=== PATIENT | male | born 1945 | race Caucasian/White ===

== ENCOUNTER → 2020-08-27 10:51 | Outpatient (BNVA) | payer MEDICARE, OTHER, SELFPAY | PROVIDERS: PCP Internal Medicine; Visit Provider Internal Medicine | DX: J44.9 Chronic obstructive pulmonary disease, unspecified (principal); J84.10 Pulmonary fibrosis, unspecified; R91.1 Solitary pulmonary nodule; Z79.899 Other long term (current) drug therapy | CPT/HCPCS: 99213 ==

== ENCOUNTER 2020-10-02 05:14 | Inpatient (IN) | payer MEDICARE, OTHER, SELFPAY ==
[2020-10-02 05:22] VITALS: BP 115/67; BP 138/80; PULSE 104; PULSE 62; RESP 15; TEMP 36.6; O2SAT 98; O2SAT 99; BMI 25.9
--- NOTE | 2020-10-02 05:28 | XR_ITS ---
EXAMINATION: ABDOMEN 1 VIEW CLINICAL INFORMATION: Constipation. COMPARISON: None. TECHNIQUE: A supine view of the abdomen is provided. FINDINGS: There are no dilated loops of small bowel. There are no air-fluid levels. There is no appendicolith. The visualized lung bases are clear. The osseous structures are unremarkable. XR/XR KUB IMPRESSION: Unremarkable bowel gas pattern.
[2020-10-02 05:58] LABS: Basophils Percent Auto 0.2 % (0-2); Eosinophils Percent Auto 0.1 % (0-4); Hematocrit 48.3 % (42-52); Hemoglobin 16.6 g/dl (14.0-18.0); Imm Gran Abs Auto 0.04 X10*3/uL (0.00-0.03); Imm Gran Pct Auto 0.3 % (0.0-0.4); Lymphocytes Absolute Auto 0.7 X10*3/uL (1.2-4.9); Lymphocytes Percent Auto 5.2 % (20-40); Mean Corpuscular HGB Conc 34.4 g/dl (31.0-36.0); Mean Corpuscular Hemoglobin 30.2 pg (27.0-33.0); Mean Corpuscular Volume 87.8 fL (80-98); Mean Platelet Volume 9.1 fL (9.4-12.4); Monocytes Absolute Auto 0.5 X10*3/uL (0.1-1.2); Monocytes Percent Auto 4.2 % (2-11); Neutrophils Absolute Auto 11.5 X10*3/uL (2.0-8.3); Platelet Count 201 X10*3/uL (160-400); Red Cell Distribution Width 11.7 % (11.0-16.0); SCAN SMEAR FLAG 1; White Blood Count 12.8 X10*3/uL (4.8-10.8)
[2020-10-02 05:59] LABS: MANUAL DIFF FLAG NO
--- NOTE | 2020-10-02 06:16 | CT_ITS ---
EXAMINATION: CT ABDOMEN AND PELVIS WITH CONTRAST CLINICAL INFORMATION: Diffuse abdominal pain. COMPARISON: None. TECHNIQUE: Contiguous axial thin section helical images of the abdomen and pelvis were performed following the administration of 85 mL of intravenous Omnipaque 350. The data set was reformatted in the coronal and sagittal planes and reviewed on an independent workstation. DLP: 512 mGy-cm. FINDINGS: The visualized lung bases are clear. The visualized portions of the heart are unremarkable. The liver is of normal size and attenuation without focal lesions nor intrahepatic biliary ductal dilation. A normal gallbladder is identified. There is no wall thickening or discernible pericholecystic fluid. The spleen, pancreas, adrenal glands are unremarkable. Both kidneys are of normal size and attenuation without hydronephrosis or nephrolithiasis. Following the administration of IV contrast, prompt symmetric nephrograms are displayed. There is no abdominal free fluid. There is neither mesenteric nor retroperitoneal lymphadenopathy. Multiple dilated loops of small bowel are present. There is a distal small bowel transition point. There is stool present within the distal small bowel. Unopacified loops of small and large bowel are identified. There is no pelvic free fluid. The urinary bladder is unremarkable. There is neither pelvic nor inguinal lymphadenopathy. Bone windows: Neither sclerotic nor lytic bone lesions are identified. CT/CT abdomen pelvis w con IMPRESSION: Distal small bowel obstruction. Automated exposure control (Care Dose) Adjustment of the mA and/or kv according to patient size (this includes techniques or standardized protocols for targeted exams where dose is matched to indication / reason for exam; i.e. extremities or head).
--- NOTE | 2020-10-02 06:21 | ED_ITS ---
HPI - Abdominal Pain General Chief Complaint: Abdominal Pain Stated Complaint: constipation Time Seen by Provider: 10/02/20 05:28 Source: patient Mode of arrival: ambulatory Limitations: no limitations History of Present Illness HPI narrative: This is a 74-year-old male with past medical history of constipation and COPD who presents with acute onset of abdominal discomfort with nausea since 05/26 last night without associated fevers, chills and states he has been unable to pass flatus and his last bowel movement was 4 days ago. He states that he contacted his doctor who instructed him to take fleets enema and he states that he had 3 large bowel movements but is in excruciating pain currently that he rates as a 10/10. Related Data Home Medications Medication Instructions Recorded Confirmed ascorbic acid (vitamin C) 500 mg 500 mg PO DAILY 08/27/20 08/27/20 tablet aspirin 81 mg tablet,delayed 81 mg PO DAILY 08/27/20 08/27/20 release atorvastatin 20 mg tablet 20 mg PO DAILY 08/27/20 08/27/20 budesonide-formoterol HFA 80 2 puff INHALATION BID 08/27/20 08/27/20 mcg-4.5 mcg/actuation aerosol inhaler cholecalciferol (vitamin D3) 25 25 mcg PO DAILY 08/27/20 08/27/20 mcg (1,000 unit) capsule levothyroxine 125 mcg tablet 125 mcg PO DAILY 08/27/20 08/27/20 montelukast 10 mg tablet 10 mg PO DAILY 08/27/20 08/27/20 zinc 50 mg tablet 50 mg PO DAILY 08/27/20 08/27/20 Allergies Allergy/AdvReac Type Severity Reaction Status Date / Time tamsulosin [TAMSULOSIN] Allergy Unknown HIVES Verified 08/27/20 11:02 Review of Systems Review of Systems Pertinent positives and negatives as stated in HPI and 10 point review of systems is otherwise negative. Physical Exam Vital Signs: Vital Signs: Last Vital Signs Temp 98 F 10/02/20 05:22 Pulse 62 10/02/20 05:22 Resp 15 10/02/20 05:22 BP 115/67 10/02/20 05:22 Pulse Ox 99 10/02/20 05:22 Body Mass Index 25.9 VITAL SIGNS: Reviewed. GENERAL: Well developed, well nourished, moderate to diffuse distress. HEAD: Normocephalic/atraumatic, EYES: PERRLA, EOMI intact without pain, no nystagmus/pallor/icterus noted EARS: Ext canals without abnormality, TMs non-bulging and non-erythematous NOSE: Nares patent bilateral OROPHARYNX: no oral lesions noted, posterior pharynx clear and non-erythematous without noted tonsillar enlargement/erythema/exudates NECK: Supple, no adenopathy LUNGS: Normal breath sounds. No adventitious sounds or accessory muscle use. SpO2<99> CARDIOVASCULAR: Regular rate and rhythm without noted murmurs, no JVD or lower extremity edema. ABDOMEN: Distended, diffusely tender. No rigidity. No guarding. No palpable masses or hernias noted MUSCULOSKELETAL: No tenderness, deformities, or effusions noted on gross inspection. EXTREMITIES: No cyanosis, clubbing or edema. SKIN: Inspection of the skin reveals no rashes, ulcerations, jaundice, pallor, or petechiae. NEUROLOGIC: Alert and oriented x 4. Strength and sensation to light touch were grossly intact x 4. Course Course Course Narrative: This is a 74-year-old male with history and clinical pr esentation concerning for possible perforation versus volvulus versus functional blockage secondary to constipation. On review of all investigations there is a mild leukocytosis with CT findings consistent with small-bowel obstruction unclear as to whether or not this is due to functional obstruction secondary to constipation as patient has a negative surgical history. This case was discussed with Dr. Jacobson who will accept the patient to his service and agrees with administering antibiotics. Although patient will receive antibiotics he does not meet sepsis criteria. NG will be placed and patient will be COVID-19 swabbed. All results and findings as well as a plan were discussed with the patient at bedside. MDM - Abdominal Pain Lab Data Result diagrams: 10/02/20 05:53 10/02/20 05:53 Labs: Lab Results 10/02/20 10/02/20 Range/Units 05:53 05:53 WBC 12.8 H (4.8-10.8) X10*3/uL RBC 5.50 (4.60-5.80) X10*6/uL Hgb 16.6 (14.0-18.0) g/dl Hct 48.3 (42-52) % MCV 87.8 (80-98) fL MCH 30.2 (27.0-33.0) pg MCHC 34.4 (31.0-36.0) g/dl RDW 11.7 (11.0-16.0) % Plt Count 201 (160-400) X10*3/uL MPV 9.1 L (9.4-12.4) fL Immature Gran % (Auto) 0.3 (0.0-0.4) % Neut % (Auto) 90.0 H (45-73) % Lymph % (Auto) 5.2 L (20-40) % Dick[place] % (Auto) 4.2 (2-11) % Eos % (Auto) 0.1 (0-4) % Baso % (Auto) 0.2 (0-2) % Lymph # (Auto) 0.7 L (1.2-4.9) X10*3/uL [place] # (Auto) 0.5 (0.1-1.2) X10*3/uL Eos # (Auto) 0.0 (0.0-0.4) X10*3/uL Baso # (Auto) 0.0 (0.0-0.2) X10*3/uL Abs Immat Gran (auto) 0.04 H (0.00-0.03) X10*3/uL Absolute Neuts (auto) 11.5 H (2.0-8.3) X10*3/uL Absolute Nucleated RBC 0.000 (0.0-0.012) X10*3/uL Nucleated RBC % (auto) 0.0 (0.0-0.2) /100WBC Sodium 137 (135-145) mmol/L Potassium 4.0 (3.3-5.1) mmol/l Chloride 97 (96-108) mmol/L Carbon Dioxide 25 (22-29) mmol/L Anion Gap 19 (12-20) BUN 25 H (9-16) mg/dL Creatinine 1.24 (0.5-1.4) mg/dL Estim Creat Clear Calc 47.3 Estimated GFR 57 Random Glucose 165 H (60-115) mg/dL Calcium 9.9 (8.4-10.2) mg/dL Total Bilirubin 1.2 H (0.0-1.0) mg/dL AST 29 (5-37) U/L ALT 30 (0-40) U/L Alkaline Phosphatase 93 (39-117) U/L Total Protein 8.6 H (6.5-8.0) g/dL Albumin 5.1 H (3.5-5.0) g/dL Discharge Plan Discharge Clinical Impression: Small bowel obstruction Patient Disposition: Admitted As Inpatient Prescriptions: No Action budesonide-formoterol [Symbicort] 80-4.5 mcg/actuation HFA aerosol inhaler 2 puff inhalation BID RF: 0 montelukast 10 mg tablet 10 mg PO DAILY RF: 0 atorvastatin 20 mg tablet 20 mg PO DAILY RF: 0 levothyroxine 125 mcg tablet 125 mcg PO DAILY RF: 0 cholecalciferol (vitamin D3) 25 mcg (1,000 unit) capsule 25 mcg PO DAILY RF: 0 zinc 50 mg tablet 50 mg PO DAILY RF: 0 ascorbic acid (vitamin C) 500 mg tablet 500 mg PO DAILY RF: 0 aspirin 81 mg tablet,delayed release (DR/EC) 81 mg PO DAILY RF: 0 PMFSH Past Medical History Source: nursing notes reviewed Medical History COPD (chronic obstructive pulmonary disease) Pulmonary fibrosis Pulmonary nodule less than 6 mm in diameter with low risk for malignant neoplasm Family History Family History Father Emphysema lung Mother No problems noted. Social History Social History Smoking Status: Never smoker Use of substances other than those prescribed or required for medical reasons: No Advance Directives: No Advance Directives Information Provided: No
[2020-10-02 06:40] LABS: Alanine Aminotransferase 30 U/L (0-40); Albumin Level 5.1 g/dL (3.5-5.0); Alkaline Phosphatase 93 U/L (39-117); Anion Gap 19 (12-20); Aspartate Amino Transferase 29 U/L (5-37); Bilirubin Total 1.2 mg/dL (0.0-1.0); Blood Urea Nitrogen 25 mg/dL (9-16); Calcium 9.9 mg/dL (8.4-10.2); Carbon Dioxide 25 mmol/L (22-29); Chloride 97 mmol/L (96-108); Creatinine Clr Calc Pharmacy 47.3; Estimated Glomerular Filt Rate 57; Glucose Random 165 mg/dL (60-115); Sodium 137 mmol/L (135-145); Total Protein 8.6 g/dL (6.5-8.0)
[2020-10-02] MEDS: iohexoL 350 MG/ML 100 ML INFUS..BTL 85 ML IV (06:44)
[2020-10-02] MEDS: 0.9 % Sodium Chloride 1,000 ML 1000 ML IV (07:19)
[2020-10-02] MEDS: fentaNYL citrate/PF 100 MCG/2 ML VIAL 25 MCG IVPUSH (07:20)
[2020-10-02] MEDS: Lidocaine HCl 4 % Laryng-O-Jet 4 ML 1 APPL TOPICAL (07:21)
[2020-10-02] MEDS: Dextrose 5 % and Lactated Ring 1,000 ML 125 ML IVCONT ×2 (08:21→16:45)
--- NOTE | 2020-10-02 08:48 | PC.NURSE ---
ng tube in place, i&o documented. plan for inpt admission. pt sts feeling more comfortable at this time. awaiting surgeon consult. wctm.
[2020-10-02 08:55] VITALS: BP 139/64; PULSE 69; RESP 16; TEMP 36.7; O2SAT 98
[2020-10-02 09:09] LABS: Lactic Acid 1.5 mmol/L (0.5-2.0)
--- NOTE | 2020-10-02 09:09 | PC.NURSE ---
general surgeon at bedside
--- NOTE | 2020-10-02 09:15 | PM.HPGS ---
History of Present Illness History of Present Illness Chief complaint: Small Bowel Obstruction Narrative: Jarad Bishop is a 74 year old male Presenting with a 24 hour history of abdominal pain located in the mid abdomen around the umbilicus. He reports a previous episode approximately 1 month ago which improved after having a large bowel movement. He reports a history of constipation denies bleeding per rectum. A colonoscopy approximately 1 year ago was apparently normal. The current episode began approximately 630 in the evening after eating dinner which included pork chops and peas. He took a fleets enema and had 3 large bowel movements but still continue to have the pain. The pain persisted and subsequently presented to the emergency department. In the emergency department he was noted to have a distended abdomen. CT of the abdomen and pelvis revealed dilated small bowel down to the ileocecal valve. There is also stool within the colon. He is admitted to the surgical service for further evaluation and management this partial small-bowel obstruction. Review of Systems Constitutional: Constitutional: Denies chills, Denies fever(s), Denies headache(s) and Denies poor appetite ENT: Denies dizziness and Denies headache(s) Cardiovascular: Cardiovascular: Denies chest pain, Denies rapid heart rate, Denies palpitations and Denies slow heart rate Respiratory: Respiratory: Denies chest congestion, Denies cough, Denies pain on inspiration and Denies wheezing Comments: History of COPD Gastrointestinal: Gastrointestinal: Reports abdominal pain, Reports bloating, Denies change in stool character, Reports constipation, Denies diarrhea, Reports nausea, Reports vomiting and Denies hematemesis Musculoskeletal: Musculoskeletal: Denies back pain, Denies arthralgias, Denies joint swelling and Denies numbness Integumentary/Breasts: Skin/Breast: Denies change in pigmentation, Denies erythema and Denies rash Neurologic: Denies confusion, Denies dizziness, Denies headache(s) and Denies numbness Psychiatric: Psychiatric: Denies anxiety, Denies confusion and Denies depression Endocrine: Endocrine: Denies palpitations Hematologic/Lymphatic: Hematologic/Lymphatic: Denies easy bleeding, Denies easy bruising and Denies lymphadenopathy Allergic/Immunologic: Allergic/Immunologic: Denies wheezing PMFSH Past Medical History Medical History COPD (chronic obstructive pulmonary disease) Pulmonary fibrosis Pulmonary nodule less than 6 mm in diameter with low risk for malignant neoplasm Family History Family History Father Emphysema lung Mother No problems noted. Surgical History Surgical History (Updated 10/02/20 @ 09:19 by Osvaldo Jacobson MD) H/O inguinal hernia repair Social History Social History Smoking Status: Never smoker Use of substances other than those prescribed or required for medical reasons: No Advance Directives: No Advance Directives Information Provided: No Meds Allergies Allergy/AdvReac Type Severity Reaction Status Date / Time tamsulosin [TAMSULOSIN] Allergy Unknown HIVES Verified 08/27/20 11:02 Home Medications Medication Instructions Recorded Confirmed Type ascorbic acid (vitamin C) 500 mg 500 mg PO DAILY 08/27/20 08/27/20 History tablet aspirin 81 mg tablet,delayed 81 mg PO DAILY 08/27/20 08/27/20 History release atorvastatin 20 mg tablet 20 mg PO DAILY 08/27/20 08/27/20 History budesonide-formoterol HFA 80 2 puff INHALATION BID 08/27/20 08/27/20 History mcg-4.5 mcg/actuation aerosol inhaler cholecalciferol (vitamin D3) 25 25 mcg PO DAILY 08/27/20 08/27/20 History mcg (1,000 unit) capsule levothyroxine 125 mcg tablet 125 mcg PO DAILY 08/27/20 08/27/20 History montelukast 10 mg tablet 10 mg PO DAILY 08/27/20 08/27/20 History zinc 50 mg tablet 50 mg PO DAILY 08/27/20 08/27/20 History Physical Exam Vital Signs: Vital Signs: Last Vital Signs Temp 98.1 F 10/02/20 08:55 Pulse 69 10/02/20 08:55 Resp 16 10/02/20 08:55 BP 139/64 10/02/20 08:55 Pulse Ox 98 10/02/20 08:55 Body Mass Index 25.9 Const: General: No confusion Nutritional Appearance: well nourished Orientation/consciousness: No confusion Eyes: Sclerae: sclerae normal EOM: EOMs intact bilaterally Neck: Neck: Yes normal visual inspection Resp: Effort & Inspection: normal respiratory effort, no cough and no respiratory distress Cardio: Jugular venous distension: no JVD Rate: regular rate Rhythm: regular rhythm GI: Inspection: Yes distended Palpation (GI): Firmness to palpation present (GI), Tenderness to palpation present (GI), no guarding and not rigid Percussion: Yes tympanic to percussion Auscultation: abnormal bowel sounds Rectal Exam - Male: Yes deferred Skin: General skin exam: dry skin Rashes: no rashes Neuro: General: No confusion Extrem: General: Yes no clubbing, cyanosis or edema Right upper extremity: normal capillary refill Left upper extremity: full ROM Results Results Labs: Short CBC 10/02/20 Range/Units 05:53 WBC 12.8 H (4.8-10.8) X10*3/uL Hgb 16.6 (14.0-18.0) g/dl Hct 48.3 (42-52) % Plt Count 201 (160-400) X10*3/uL BMP 10/02/20 05:53 Sodium 137 Potassium 4.0 Chloride 97 Carbon Dioxide 25 BUN 25 H Creatinine 1.24 Calcium 9.9 Liver Function 10/02/20 Range/Units 05:53 Total Bilirubin 1.2 H (0.0-1.0) mg/dL AST 29 (5-37) U/L ALT 30 (0-40) U/L Alkaline Phosphatase 93 (39-117) U/L Albumin 5.1 H (3.5-5.0) g/dL Assessment and Plan (1) Small bowel obstruction: Status: Acute 74-year-old male presenting with abdominal pain following dinner and a history of an inguinal hernia repair but no other intra-abdominal surgeries. Patient reports a previous episode approximately a month ago which resolved after a large bowel movement. Workup today reveals distended small bowel stomach with stool in the colon possibly suggestive of small-bowel obstruction versus ileus. A nasogastric tube has been placed in the emergency department and will be kept at low intermittent suction. I will place him on IV fluids, bowel rest, and NG tube decompression. Patient understands and agrees with the plan.
--- NOTE | 2020-10-02 09:42 | PC.NURSE ---
called for report to s3, per traveling secretary, nurse will call back.
--- NOTE | 2020-10-02 09:48 | PC.NURSE ---
room assignment switched for second time, call for report to im. per psychiatric secretary, nurse will call back for report when room is available.
[2020-10-02 10:23] LABS: SARS COV2 PCR INHOUSE NEGATIVE (Negative)
[2020-10-02] MEDS: Lidocaine 4 % Patch ADH..PATCH 1 PATCH TRANSDERMA (10:56)
--- NOTE | 2020-10-02 12:11 | PC.NURSE ---
REPORT GIVEN TO [facility] [place] DUONG JOSEPH
[2020-10-02 12:46] VITALS: BP 151/74; PULSE 78; RESP 20; TEMP 36.6; O2SAT 95
[2020-10-02 15:22] VITALS: BP 138/56; PULSE 90; RESP 20; TEMP 36.7; O2SAT 98
[2020-10-02 19:52] VITALS: BP 144/66; PULSE 73; RESP 20; TEMP 37; O2SAT 95
[2020-10-02 23:18] VITALS: BP 144/70; PULSE 66; RESP 20; TEMP 36.9; O2SAT 97
[2020-10-03] MEDS: Dextrose 5 % and Lactated Ring 1,000 ML 125 ML IVCONT ×3 (00:49→17:15)
[2020-10-03 03:16] VITALS: BP 151/83; PULSE 66; RESP 20; TEMP 36.9; O2SAT 96
[2020-10-03] MEDS: Morphine Sulfate 4 MG/ML CARTRIDGE IVPUSH (03:22)
[2020-10-03 07:08] LABS: MANUAL DIFF FLAG NO
[2020-10-03 07:13] LABS: Basophils Percent Auto 0.4 % (0-2); Eosinophils Absolute Auto 0.1 X10*3/uL (0.0-0.4); Eosinophils Percent Auto 1.6 % (0-4); Hematocrit 44.9 % (42-52); Imm Gran Abs Auto 0.01 X10*3/uL (0.00-0.03); Imm Gran Pct Auto 0.2 % (0.0-0.4); Lymphocytes Percent Auto 17.8 % (20-40); Mean Corpuscular HGB Conc 33.4 g/dl (31.0-36.0); Mean Corpuscular Hemoglobin 30.1 pg (27.0-33.0); Mean Platelet Volume 9.8 fL (9.4-12.4); Monocytes Absolute Auto 0.8 X10*3/uL (0.1-1.2); Monocytes Percent Auto 13.7 % (2-11); Neutrophils Absolute Auto 3.7 X10*3/uL (2.0-8.3); Neutrophils Percent Auto 66.3 % (45-73); Platelet Count 198 X10*3/uL (160-400); Red Blood Count 4.99 X10*6/uL (4.60-5.80); Red Cell Distribution Width 12.3 % (11.0-16.0); White Blood Count 5.6 X10*3/uL (4.8-10.8)
[2020-10-03 07:32] VITALS: BP 126/66; PULSE 65; RESP 18; TEMP 36.7; O2SAT 96
[2020-10-03 08:04] LABS: Anion Gap 11 (12-20); Blood Urea Nitrogen 18 mg/dL (9-16); Calcium 8.3 mg/dL (8.4-10.2); Carbon Dioxide 30 mmol/L (22-29); Chloride 101 mmol/L (96-108); Creatinine Clr Calc Pharmacy 56.4; Estimated Glomerular Filt Rate > 60; Glucose Random 140 mg/dL (60-115); Sodium 138 mmol/L (135-145)
--- NOTE | 2020-10-03 09:33 | MHC.CM.PN ---
CM met with Patient.Patient lives in a house with his /HCP and he is functionally independent and working [employer]. Patient's goal is to return home and CM has initiated and will follow for dc planning. IMM addressed with Patient and the original has been given to him and a copy has been placed on the chart.PCP is Dr. Francis Chapman.
--- NOTE | 2020-10-03 09:44 | PM.PNGS ---
Subjective Subjective Interval history: Jraad Bishop Reports feeling improved today with decreased abdominal pain. He reports passing flatus but no BM as of yet. Physical Exam Vital Signs: Vital Signs: Last Vital Signs Temp 98.0 F 10/03/20 07:32 Pulse 65 10/03/20 07:32 Resp 18 10/03/20 07:32 BP 126/66 10/03/20 07:32 Pulse Ox 96 10/03/20 07:32 Body Mass Index 25.9 Const: Other: Awake and alert, no acute distress Resp: Other: clear to auscultation, no respiratory distress GI: Other: much softer today, no tympany, no tenderness to palpation, no rebound or guarding Skin: Other: warm and dry Extrem: Other: no edema Progress Note: A&P Assessment and plan (1) Small bowel obstruction: Status: Acute Assessment and Plan: patient presents with abdominal distension of recent onset associated with findings suggestive of a small-bowel obstruction without a clear area of demarcation perhaps at the ileocecal valve. Patient is improving with bowel rest, nasogastric decompression, and IV fluids. He is now passing flatus but no bowel movement yet. Will continue NPO, IV fluids, NG and await return of full bowel function. Fall Risk Details Current Medications: Current Medications Generic Name Dose Route Start Last Admin Trade Name Freq PRN Reason Stop Dose Admin Dextrose/Lactated Ringer's 1,000 mls @ 125 mls/hr 10/02/20 07:30 10/03/20 08:19 D5lr IVCONT 125 mls/hr .Q8H PAGE Administration Morphine Sulfate 4 mg 10/02/20 12:26 10/03/20 03:22 Morphine Sulfate 4 Mg/Ml Cartridge IVPUSH 4 mg Q3H PRN Administration Pain, Severe (Pain Scale 7-10) Pharmacy Consult 1 each 10/02/20 12:26 Consult Rx Perform Med Rec MISCELLANE ONCE PRN Consult order Time Spent With Patient Time: Total time spent is greater than 50% in coordination of care (as documented) at patient's floor/unit and/or counseling patient: Time with patient: 15 - 24 minutes
[2020-10-03 12:00] VITALS: BP 132/62; PULSE 68; RESP 18; TEMP 36.3; O2SAT 94
[2020-10-03 15:15] VITALS: BP 146/67; PULSE 70; RESP 18; TEMP 36.6; O2SAT 94
[2020-10-03 20:00] VITALS: BP 152/66; PULSE 68; RESP 18; TEMP 36.8; O2SAT 93
[2020-10-03 23:25] VITALS: BP 149/69; PULSE 69; RESP 18; TEMP 37; O2SAT 96
[2020-10-04] MEDS: Dextrose 5 % and Lactated Ring 1,000 ML 125 ML IVCONT ×3 (01:27→17:54)
[2020-10-04 03:39] VITALS: BP 154/74; PULSE 69; RESP 18; TEMP 37.1; O2SAT 97
[2020-10-04 07:42] VITALS: BP 137/60; PULSE 72; RESP 16; TEMP 36.8; O2SAT 94
--- NOTE | 2020-10-04 08:55 | P.PNGS_ITS ---
Subjective Subjective Interval history: Mr. Bishop reports decreased abdominal pain but he is frustrated that he is unable to move his bowels. He continues to pass flatus and occasionally feels the urge to have a bowel movement. He denies nausea or vomiting but does report a sore throat. Physical Exam Vital Signs: Vital Signs: Last Vital Signs Temp 98.2 F 10/04/20 07:42 Pulse 72 10/04/20 07:42 Resp 16 10/04/20 07:42 BP 137/60 10/04/20 07:42 Pulse Ox 94 10/04/20 07:42 Body Mass Index 25.9 Const: General: cooperative, healthy appearing, comfortable and no acute distress HENMT: Other: NG tube in place draining bilious fluid Resp: Other: breathing comfortably on room air, no respiratory distress, no cough GI: Other: soft, slightly distended, no tympany to percussion, no tenderness to percussion or palpation Skin: Other: warm and dry, no rash Extrem: Other: no edema Progress Note: A&P Assessment and plan (1) Small bowel obstruction: Status: Acute Assessment and Plan: Mr. Bishop is a 74-year-old male patient presenting with complaints of abdominal distension, constipation, nausea and vomiting found on workup to have a small-bowel obstruction. He previously underwent a colonoscopy by Dr. Jacobo in August 2019 which revealed to tubular adenomas in the cecum and right colon. He has no previous history of abdominal surgery but has had a previous hernia repair. Examination today is softer but still moderately distended. Nasogast sergio tube is producing bilious fluid, approximately 1150 mL for the past 24 hours. Will continue the nasogastric tube decompression and IV fluids. Chloraseptic spray ordered for sore throat. Will repeat abdominal x-rays / upper GI study with small bowel follow-through in a.m. if no improvement. Fall Risk Details Current Medications: Current Medications Generic Name Dose Route Start Last Admin Trade Name Freq PRN Reason Stop Dose Admin Dextrose/Lactated Ringer's 1,000 mls @ 125 mls/hr 10/02/20 07:30 10/04/20 01:27 D5lr IVCONT 125 mls/hr .Q8H PAGE Administration Morphine Sulfate 4 mg 10/02/20 12:26 10/03/20 03:22 Morphine Sulfate 4 Mg/Ml Cartridge IVPUSH 4 mg Q3H PRN Administration Pain, Severe (Pain Scale 7-10) Pharmacy Consult 1 each 10/02/20 12:26 Consult Rx Perform Med Rec MISCELLANE ONCE PRN Consult order Time Spent With Patient Time: Total time spent is greater than 50% in coordination of care (as documented) at patient's floor/unit and/or counseling patient: Time with patient: 15 - 24 minutes
[2020-10-04] MEDS: Famotidine/PF 20 MG/2 ML VIAL IVPUSH (11:13)
[2020-10-04 12:00] VITALS: BP 155/64; PULSE 65; RESP 18; TEMP 37.2; O2SAT 96
[2020-10-04 15:39] VITALS: BP 131/52; PULSE 70; RESP 18; TEMP 37; O2SAT 96
[2020-10-04 19:04] VITALS: BP 150/67; PULSE 77; RESP 18; TEMP 36.8; O2SAT 94
[2020-10-04] MEDS: Calcium Carbonate 750 MG TAB.CHEW PO (19:30)
[2020-10-05] VITALS: BP 138/67; PULSE 67; RESP 16; TEMP 36.4; O2SAT 95
[2020-10-05] MEDS: Dextrose 5 % and Lactated Ring 1,000 ML 125 ML IVCONT ×2 (00:55→09:04)
[2020-10-05 03:44] VITALS: BP 145/67; PULSE 65; RESP 16; TEMP 36.6; O2SAT 96
[2020-10-05 07:10] VITALS: BP 156/70; PULSE 73; RESP 18; TEMP 37; O2SAT 93
[2020-10-05] MEDS: Famotidine/PF 20 MG/2 ML VIAL IVPUSH (09:04)
[2020-10-05 11:47] VITALS: BP 138/66; PULSE 64; RESP 18; TEMP 37.1; O2SAT 93
--- NOTE | 2020-10-05 12:27 | P.PNGS_ITS ---
Subjective Subjective Interval history: Mr. Bishop reports 2 bowel movements today including 1 at 03:00 o'clock a.m. and a 2nd at 07:00. He denies abdominal pain, nausea, or vomiting. He does complain of sore throat from the nasogastric tube . Physical Exam Vital Signs: Vital Signs: Last Vital Signs Temp 98.8 F 10/05/20 11:47 Pulse 64 10/05/20 11:47 Resp 18 10/05/20 11:47 BP 138/66 10/05/20 11:47 Pulse Ox 93 10/05/20 11:47 Body Mass Index 25.9 Const: General: cooperative, healthy appearing, comfortable and no acute distress Resp: Effort & Inspection: normal respiratory effort and no cough GI: Inspection: Yes normal to inspection Palpation (GI): Soft to palpation, not firm, nontender, no guarding and No Rebound tenderness present Skin: General skin exam: no rashes or lesions noted and dry skin Extrem: General: Yes normal to inspection Progress Note: A&P Assessment and plan (1) Small bowel obstruction: Status: Acute Assessment and Plan: Mr. Bishop is now passing flatus and bowels suggestive of resolution of the partial small-bowel obstruction. The nasogastric tube has been stopped and he will be started on clear liquid diet. This will be slowly advanced as tolerated. Fall Risk Details Current Medications: Current Medications Generic Name Dose Route Start Last Admin Trade Name Freq PRN Reason Stop Dose Admin Calcium Carbonate 750 mg 10/04/20 10:38 10/04/20 19:30 Calcium Carbonate 750 Mg Tab.Chew PO 750 mg Q6H PRN Administration Heartburn Famotidine 20 mg 10/04/20 10:45 10/05/20 09:04 Famotidine/Pf 20 Mg/2 Ml Vial IVPUSH 20 mg DAILY PAGE Administration Dextrose/Lactated Ringer's 1,000 mls @ 125 mls/hr 10/02/20 07:30 10/05/20 09:04 D5lr IVCONT 125 mls/hr .Q8H PAGE Administration Morphine Sulfate 4 mg 10/02/20 12:26 10/03/20 03:22 Morphine Sulfate 4 Mg/Ml Cartridge IVPUSH 4 mg Q3H PRN Administration Pain, Severe (Pain Scale 7-10) Multi-Ingred Medicated Throat [place] 1 ml 10/04/20 09:00 10/04/20 10:31 Throat [place], Medicated 20 Ml [place] MUCOUS MEM 1 ml Q2H PRN Administration Sore Throat Pharmacy Consult 1 each 10/02/20 12:26 Consult Rx Perform Med Rec MISCELLANE ONCE PRN Consult order Time Spent With Patient Time: Total time spent is greater than 50% in coordination of care (as documented) at patient's floor/unit and/or counseling patient: Time with patient: 15 - 24 minutes
--- NOTE | 2020-10-05 13:22 | MHC.CM.PN ---
PER REVIEW OF REPORTS, PATIENT PLAN IS ADVANCEMENT OF DIET CASE MANAGEMENT FOLLOWING FOR ANY DISCHARGE NEEDS.
--- NOTE | 2020-10-05 14:46 | PC.NURSE ---
NGT removed by Dr. Jcaobson. Pt denies n/v or pain. Tolerated clear liquid diet for lunch. Ambulates in ware with steady gait. states soft bm in toilet this afternoon.
[2020-10-05 16:00] VITALS: BP 120/60; PULSE 60; RESP 16; TEMP 36.6; O2SAT 96
[2020-10-05 19:25] VITALS: BP 130/58; PULSE 66; RESP 16; TEMP 36.8; O2SAT 96
[2020-10-06] VITALS: BP 114/59; PULSE 60; RESP 20; TEMP 36.9; O2SAT 96
[2020-10-06 04:00] VITALS: BP 110/57; PULSE 57; RESP 14; TEMP 36.2
[2020-10-06 07:46] VITALS: BP 112/56; PULSE 54; RESP 15; TEMP 36.4; O2SAT 94
--- NOTE | 2020-10-06 08:39 | P.PNGS_ITS ---
Subjective Subjective Interval history: Patient reports diarrhea last night better this morning. Tolerated liquids without nausea or vomiting. Denies any abdominal pain. Physical Exam Vital Signs: Vital Signs: Last Vital Signs Temp 97.5 F 10/06/20 07:46 Pulse 54 10/06/20 07:46 Resp 15 10/06/20 07:46 BP 112/56 L 10/06/20 07:46 Pulse Ox 94 10/06/20 07:46 Body Mass Index 25.9 Const: Other: Well-nourished, well-developed, no acute distress Resp: Other: breathing comfortably on room air, no respiratory distress GI: Other: soft, nondistended, nontender, normal bowel sounds, no rebound, no rigidity. Skin: Other: warm and dry, no rash Extrem: Other: no edema Progress Note: A&P Assessment and plan (1) Small bowel obstruction: Status: Acute Assessment and Plan: Mr. Bishop tolerated the clear liquids without nausea or vomiting. He does report several episodes of loose stool. He denies abdominal pain currently. Plan: Will advance to a regular diet (low residue ) and check back later today. If diet is well tolerated he may be discharge to home later today. Fall Risk Details Current Medications: Current Medications Generic Name Dose Route Start Last Admin Trade Name Freq PRN Reason Stop Dose Admin Calcium Carbonate 750 mg 10/04/20 10:38 10/04/20 19:30 Calcium Carbonate 750 Mg Tab.Chew PO 750 mg Q6H PRN Administration Heartburn Famotidine 20 mg 10/04/20 10:45 10/05/20 09:04 Famotidine/Pf 20 Mg/2 Ml Vial IVPUSH 20 mg DAILY PAGE Administration Morphine Sulfate 4 mg 10/02/20 12:26 10/03/20 03:22 Morphine Sulfate 4 Mg/Ml Cartridge IVPUSH 4 mg Q3H PRN Administration Pain, Severe (Pain Scale 7-10) Multi-Ingred Medicated Throat [place] 1 ml 10/04/20 09:00 10/04/20 10:31 Throat [place], Medicated 20 Ml [place] MUCOUS MEM 1 ml Q2H PRN Administration Sore Throat Pharmacy Consult 1 each 10/02/20 12:26 Consult Rx Perform Med Rec MISCELLANE ONCE PRN Consult order Time Spent With Patient Time: Total time spent is greater than 50% in coordination of care (as documented) at patient's floor/unit and/or counseling patient: Time with patient: less than 15 minutes
[2020-10-06] MEDS: Famotidine/PF 20 MG/2 ML VIAL IVPUSH (08:53)
[2020-10-06 11:50] VITALS: BP 129/60; PULSE 57; RESP 16; TEMP 36.2; O2SAT 99
--- NOTE | 2020-10-06 12:14 | MHC.CM.PN ---
PLAN IS FOR ADVANCEMENT OF DIET AND POSSIBLE DISCHARGE HOME TODAY WITH NO SERVICES. PATIENT HAS TRANSPORT HOME IMM 10/06 IN CHART. RN AWARE OF PLAN.
--- NOTE | 2020-10-06 14:49 | MHC.CM.PN ---
HOME NO SERVICES. RN AWARE OF PLAN
[2020-10-06 15:50] VITALS: BP 115/54; PULSE 60; RESP 18; TEMP 36.7; O2SAT 95
--- NOTE | 2020-10-06 17:25 | P.DS_ITS ---
DS: Providers Provider Date of admission: 10/02/20 07:29 Primary care physician: Unknown Physician DS: Diagnosis Discharge Diagnosis (1) Small bowel obstruction: Status: Acute DS: Summary Hospital Course Hospital Course: Jarad Bishop is a 74 year old male Presenting with a 24 hour history of abdominal pain located in the mid abdomen around the umbilicus. He reports a previous episode approximately 1 month ago which improved after having a large bowel movement. He reports a history of constipation denies bleeding per rectum. A colonoscopy approximately 1 year ago was apparently normal. The current episode began approximately 630 in the evening after eating dinner which included pork chops and peas. He took a fleets enema and had 3 large bowel movements but still continue to have the pain. The pain persisted and subsequently presented to the emergency department. In the emergency department he was noted to have a distended abdomen. CT of the abdomen and pelvis revealed dilated small bowel down to the ileocecal valve. There is also stool within the colon. He is admitted to the surgical service for further evaluation and management this partial small-bowel obstruction. He was initially treated with bowel rest including nasogastric tube decompression, NPO, IV fluids. After the 2nd hospital day the patient felt much improved with decreased abdominal pain and no further nausea or vomiting. He was able to pass some flatus but no bowel movement. On the evening of the 2nd hospital day he did pass a bowel movement in the 2nd bowel movement on the 3rd hospital day. He was subsequently started on clear liquids after nasogastric tube was removed. This was then advanced to a regular diet on the 4th hospital day which he again tolerated well. Patient is discharged to home on 10/06/2020 in stable condition. Discharge instructions were to avoid high-fiber diet. He was instructed on a low residue diet which she should maintain for the next several weeks. As he has previously undergone a colonoscopy last year no further colonoscopy is required at this time. He is welcome to follow up my office in approximately 1 week and should call should his symptoms return. Time Spent with Patient Time attestation: Total time spent providing and/or coordinating discharge services: Physical Exam Vital Signs: Vital Signs: Last Vital Signs Temp 98.0 F 10/06/20 15:50 Pulse 60 10/06/20 15:50 Resp 18 10/06/20 15:50 BP 115/54 L 10/06/20 15:50 Pulse Ox 95 10/06/20 15:50 Body Mass Index 25.9 Const: General: cooperative, healthy appearing and no acute distress Resp: Effort & Inspection: normal respiratory effort, no cough and no stridor GI: Inspection: Yes normal to inspection Palpation (GI): Soft to palpation, nontender, no guarding and not rigid Percussion: Yes normal to percussion Auscultation: normal bowel sounds Skin: General skin exam: no rashes or lesions noted Rashes: no rashes DS: Data Data Completed and Pending Labs on day of discharge: 10/02/20 05:28 IV insert/maintain .Now XR KUB Stat 10/02/20 05:53 Complete Blood Count Auto Diff Stat Comprehensive Met. Panel Stat 10/02/20 06:16 CT abdomen pelvis w con Stat 10/02/20 06:43 iohexoL 350 MG/ML [Omnipaque 350 MG/ML] 85 ml IV ONCE ONE 10/02/20 06:50 NG/OG Tube Insert/Maintain NOW 10/02/20 06:52 0.9 % Sodium Chloride [Ns] 1,000 ml IV 1,000 mls/hr 10/02/20 07:04 Lidocaine HCl 4 % Lctkdt-I-Yev [Xylocaine 4 % Ubiwje-K-Qrx] 1 appl TOPICAL ONCE ONE fentaNYL citrate/PF [Sublimaze] 25 mcg IVPUSH ONCE ONE 10/02/20 07:28 Compression Therapy QSHIFT Code Status Routine 10/02/20 07:29 IV insert/maintain Q4HR Intake and Output QSHIFTE Vital Signs QSHIFT 10/02/20 07:30 Dextrose 5 % and Lactated Ring [D5lr] 1,000 ml IVCONT 125 mls/hr 10/02/20 07:31 Transfer Order Routine 10/02/20 08:32 Lactic Acid Stat SARS COV2 PCR INHOUSE Stat 10/02/20 08:43 ondansetron HCL [Zofran] 4 mg .ROUTE .STK-MED ONE 10/02/20 10:51 Lidocaine 4 % Patch [Salonpas 4 % Patch] 1 patch TRANSDERMA ONCE ONE 10/02/20 12:26 Consult Rx Perform Med Rec 1 each MISCELLANE ONCE PRN Morphine Sulfate 4 mg IVPUSH Q3H PRN 10/03/20 03:25 Promethazine HCL [Phenergan] 6.25 mg 0.9 % Sodium Chloride [Ns] 50 ml IV ONCE 10/03/20 03:29 Promethazine HCL [Phenergan] 25 mg IV .STK-MED ONE 10/03/20 06:06 Basic Metabolic Panel DAILY@0600 Complete Blood Count Auto Diff DAILY@0600 10/04/20 09:00 Throat [place], Medicated [Chloraseptic] 1 ml MUCOUS MEM Q2H PRN Laboratory Last Values WBC 5.6 X10*3/uL (4.8-10.8) 10/03/20 06:06 RBC 4.99 X10*6/uL (4.60-5.80) 10/03/20 06:06 Hgb 15.0 g/dl (14.0-18.0) 10/03/20 06:06 Hct 44.9 % (42-52) 10/03/20 06:06 MCV 90.0 fL (80-98) 10/03/20 06:06 MCH 30.1 pg (27.0-33.0) 10/03/20 06:06 MCHC 33.4 g/dl (31.0-36.0) 10/03/20 06:06 RDW 12.3 % (11.0-16.0) 10/03/20 06:06 Plt Count 198 X10*3/uL (160-400) 10/03/20 06:06 MPV 9.8 fL (9.4-12.4) 10/03/20 06:06 Immature Gran % (Auto) 0.2 % (0.0-0.4) 10/03/20 06:06 Neut % (Auto) 66.3 % (45-73) 10/03/20 06:06 Lymph % (Auto) 17.8 % (20-40) L 10/03/20 06:06 [place] % (Auto) 13.7 % (2-11) H 10/03/20 06:06 Eos % (Auto) 1.6 % (0-4) 10/03/20 06:06 Baso % (Auto) 0.4 % (0-2) 10/03/20 06:06 Lymph # (Auto) 1.0 X10*3/uL (1.2-4.9) L 10/03/20 06:06 [place] # (Auto) 0.8 X10*3/uL (0.1-1.2) 10/03/20 06:06 Eos # (Auto) 0.1 X10*3/uL (0.0-0.4) 10/03/20 06:06 Baso # (Auto) 0.0 X10*3/uL (0.0-0.2) 10/03/20 06:06 Abs Immat Gran (auto) 0.01 X10*3/uL (0.00-0.03) 10/03/20 06:06 Absolute Neuts (auto) 3.7 X10*3/uL (2.0-8.3) 10/03/20 06:06 Absolute Nucleated RBC 0.000 X10*3/uL (0.0-0.012) 10/03/20 06:06 Nucleated RBC % (auto) 0.0 /100WBC (0.0-0.2) 10/03/20 06:06 Sodium 138 mmol/L (135-145) 10/03/20 06:06 Potassium 4.0 mmol/l (3.3-5.1) 10/03/20 06:06 Chloride 101 mmol/L (96-108) 10/03/20 06:06 Carbon Dioxide 30 mmol/L (22-29) H 10/03/20 06:06 Anion Gap 11 (12-20) L 10/03/20 06:06 BUN 18 mg/dL (9-16) H 10/03/20 06:06 Creatinine 1.04 mg/dL (0.5-1.4) 10/03/20 06:06 Estim Creat Clear Calc 56.4 10/03/20 06:06 Estimated GFR > 60 10/03/20 06:06 Random Glucose 140 mg/dL (60-115) H 10/03/20 06:06 Lactic Acid 1.5 mmol/L (0.5-2.0) 10/02/20 08:32 Calcium 8.3 mg/dL (8.4-10.2) L D 10/03/20 06:06 Total Bilirubin 1.2 mg/dL (0.0-1.0) H 10/02/20 05:53 AST 29 U/L (5-37) 10/02/20 05:53 ALT 30 U/L (0-40) 10/02/20 05:53 Alkaline Phosphatase 93 U/L (39-117) 10/02/20 05:53 Total Protein 8.6 g/dL (6.5-8.0) H 10/02/20 05:53 Albumin 5.1 g/dL (3.5-5.0) H 10/02/20 05:53 Coronavirus (PCR) NEGATIVE (Negative) 10/02/20 08:32 Discharge Plan Discharge Anticipated Discharge Date/Time: 10/06/20 14:37 Patient Disposition: Home, Self-Care Referrals: Osvaldo Jacobson MD [Physician] - Physician,Unknown [Primary Care Provider] - Discharge Medications: Continued multivitamin Tablet 1 tab PO DAILY RF: 0 albuterol sulfate [Ventolin HFA] 90 mcg/actuation Hfa Aerosol Inhaler 2 puff INHALATION QID PRN (Reason: Shortness Of Breath) RF: 0 budesonide-formoterol [Symbicort] 80-4.5 mcg/actuation HFA aerosol inhaler 2 puff inhalation BID RF: 0 montelukast 10 mg tablet 10 mg PO DAILY RF: 0 atorvastatin 20 mg tablet 20 mg PO DAILY RF: 0 levothyroxine 125 mcg tablet 125 mcg PO DAILY RF: 0 cholecalciferol (vitamin D3) 25 mcg (1,000 unit) capsule 25 mcg PO DAILY RF: 0 ascorbic acid (vitamin C) 500 mg tablet 500 mg PO DAILY RF: 0 aspirin 81 mg tablet,delayed release (DR/EC) 81 mg PO DAILY RF: 0 Discharge Orders: Discharge Order (Routine); Ordered 10/06/20 Ordered By: Osvaldo Jacobson Diet: advance to your usual diet Activity on Discharge: As tolerated Patient Instructions: Low Fiber Diet (DC) Discharge Date/Time: 10/06/20 16:30 Visit Report Forms: Patient Portal Discharge page Care Plan Goals: Resume normal diet and activity Health Concerns: Partial small bowel obstruction Plan of Treatment: Avoid high fiber diet; stay on low residue diet
== END 2020-10-06 16:30 | disposition home or self-care (01) | DRG 390 ==
LOC: HO.ED 07:30 → HO.IMC 08:07 → HO.S3 08:23 → HO.IMC 10:47 → HO.S3 10-03 17:37
PROVIDERS: Admitting Provider Surgery; Emergency Provider Student in an Organized Health Care Education/Training Program; Visit Provider Surgery
DX: K56.609 Unspecified intestinal obstruction, unspecified as to partial versus complete obstruction (principal); Z20.828 Contact with and (suspected) exposure to other viral communicable diseases; Z79.82 Long term (current) use of aspirin; Z79.890 Hormone replacement therapy; Z79.899 Other long term (current) drug therapy
CPT/HCPCS: 36415; 74018; 74177; 80048; 80053; 83605; 85025; 96361; 96374; 99285; J2270; J3010; Q9967; U0003

== ENCOUNTER → 2020-10-16 10:38 | Outpatient (BNVA) | payer MEDICARE, OTHER, SELFPAY | PROVIDERS: PCP Internal Medicine; Referring Provider Internal Medicine; Visit Provider Surgery | DX: K59.00 Constipation, unspecified (principal); Z87.19 Personal history of other diseases of the digestive system | CPT/HCPCS: 99212 ==

== ENCOUNTER 2020-12-25 11:37 | Outpatient (REF) | payer MEDICARE, OTHER, SELFPAY ==
[2020-12-25 13:40] LABS: MANUAL DIFF FLAG NO
[2020-12-25 13:49] LABS: Basophils Absolute Auto 0.1 X10*3/uL (0.0-0.2); Basophils Percent Auto 1.3 % (0-2); Eosinophils Absolute Auto 0.2 X10*3/uL (0.0-0.4); Eosinophils Percent Auto 3.9 % (0-4); Hematocrit 45.3 % (42-52); Hemoglobin 14.9 g/dl (14.0-18.0); Imm Gran Abs Auto 0.01 X10*3/uL (0.00-0.03); Imm Gran Pct Auto 0.2 % (0.0-0.4); Lymphocytes Absolute Auto 1.2 X10*3/uL (1.2-4.9); Lymphocytes Percent Auto 26.3 % (20-40); Mean Corpuscular HGB Conc 32.9 g/dl (31.0-36.0); Mean Corpuscular Hemoglobin 29.5 pg (27.0-33.0); Mean Corpuscular Volume 89.7 fL (80-98); Mean Platelet Volume 9.9 fL (9.4-12.4); Monocytes Absolute Auto 0.5 X10*3/uL (0.1-1.2); Monocytes Percent Auto 11.6 % (2-11); Neutrophils Absolute Auto 2.6 X10*3/uL (2.0-8.3); Neutrophils Percent Auto 56.7 % (45-73); Platelet Count 206 X10*3/uL (160-400); Red Blood Count 5.05 X10*6/uL (4.60-5.80); Red Cell Distribution Width 12.1 % (11.0-16.0); White Blood Count 4.6 X10*3/uL (4.8-10.8)
[2020-12-25 14:46] LABS: Alanine Aminotransferase 22 U/L (0-40); Albumin Level 4.5 g/dL (3.5-5.0); Alkaline Phosphatase 101 U/L (39-117); Anion Gap 11 (12-20); Aspartate Amino Transferase 24 U/L (5-37); Blood Urea Nitrogen 27 mg/dL (9-16); Calcium 8.9 mg/dL (8.4-10.2); Carbon Dioxide 28 mmol/L (22-29); Chloride 104 mmol/L (96-108); Estimated Glomerular Filt Rate > 60; Glucose Random 90 mg/dL (60-115); Potassium 4.3 mmol/L (3.3-5.1); Sodium 139 mmol/L (135-145); Total Protein 7.5 g/dL (6.5-8.0)
[2020-12-25 15:09] LABS: Free T4 (Free Thyroxine) 1.29 ng/dL (0.71-1.85); Thyroid Stimulating Hormone 1.89 uIU/mL (0.32-4.0)
== END 2020-12-25 11:38 | disposition home or self-care (01) ==
LOC: HO.10HDL 11:37
PROVIDERS: Visit Provider Internal Medicine
DX: E03.9 Hypothyroidism, unspecified (principal); R50.9 Fever, unspecified; Z87.19 Personal history of other diseases of the digestive system
CPT/HCPCS: 36415; 80053; 84439; 84443; 85025

== ENCOUNTER → 2021-03-04 11:45 | Outpatient (BNVA) | payer MEDICARE, OTHER, SELFPAY | PROVIDERS: PCP Internal Medicine; Visit Provider Internal Medicine | DX: J44.9 Chronic obstructive pulmonary disease, unspecified (principal); J84.10 Pulmonary fibrosis, unspecified; R91.1 Solitary pulmonary nodule; Z91.89 Other specified personal risk factors, not elsewhere classified | CPT/HCPCS: 99212 ==

== ENCOUNTER 2021-03-09 11:10 | Outpatient (REF) | payer MEDICARE, OTHER, SELFPAY ==
--- NOTE | ~2021-03-09 | CT_ITS ---
EXAMINATION: CT CHEST WITHOUT CONTRAST CLINICAL INFORMATION: Pulmonary nodule COMPARISON: Previous chest CT or 2020 chest x-rays most recent November 2019 TECHNIQUE: Multidetector volumetric CT imaging of the chest was done. Axial MIP volume rendering provided. Sagittal and coronal reformatted images were obtained. This CT examination was performed using dose optimization techniques as appropriate, variously including the following: *Automated exposure control *Adjustment of mA and/or kV according to patient size (this includes techniques or standardized protocols for targeted exams where dose is matched to indication/reason for exam; i.e. extremities or head) *Use of iterative reconstruction technique DLP: 250 mGy-cm FINDINGS: LUNGS: There is biapical pleural and parenchymal scarring. There are multiple small bilateral pulmonary nodules that are stable. The largest pulmonary nodule measures 0.5 x 0.7 cm in the left lower lobe at the lateral costophrenic sulcus axial image 445 series 5. No new pulmonary nodules are seen. No endobronchial or endotracheal lesion is seen. MEDIASTINUM: There is mild coronary artery and aortic valve calcification. The mediastinum is otherwise normal. PLEURA: There is no pleural effusion. No pleural mass or thickening. AXILLA: No lymphadenopathy. UPPER ABDOMEN: There is a 3 mm stone in the upper pole the right kidney. OSSEOUS STRUCTURES: There are degenerative changes of the spine. CT/CT chest wo con IMPRESSION: Stable small pulmonary nodules, largest measuring 5 x 7 mm in the lateral costophrenic sulcus of the left lower lobe. Mild coronary artery and aortic valve calcification. Small right renal stone.
== END 2021-03-09 11:11 | disposition home or self-care (01) ==
LOC: HO.CT 11:10
PROVIDERS: PCP Internal Medicine; Visit Provider Internal Medicine
DX: J84.10 Pulmonary fibrosis, unspecified (principal); R91.1 Solitary pulmonary nodule; Z91.89 Other specified personal risk factors, not elsewhere classified
CPT/HCPCS: 71250

== ENCOUNTER 2021-05-07 11:14 | Outpatient (REF) | payer MEDICARE, OTHER, SELFPAY ==
[2021-05-07 13:47] LABS: Basophils Absolute Auto 0.1 X10*3/uL (0.0-0.2); Basophils Percent Auto 1.1 % (0-2); Eosinophils Absolute Auto 0.2 X10*3/uL (0.0-0.4); Eosinophils Percent Auto 3.8 % (0-4); Hematocrit 44.5 % (42-52); Hemoglobin 14.7 g/dl (14.0-18.0); Imm Gran Abs Auto 0.01 X10*3/uL (0.00-0.03); Imm Gran Pct Auto 0.2 % (0.0-0.4); Lymphocytes Absolute Auto 1.4 X10*3/uL (1.2-4.9); MANUAL DIFF FLAG NO; Mean Corpuscular Hemoglobin 29.8 pg (27.0-33.0); Mean Corpuscular Volume 90.3 fL (80-98); Mean Platelet Volume 10.2 fL (9.4-12.4); Monocytes Absolute Auto 0.7 X10*3/uL (0.1-1.2); Monocytes Percent Auto 12.3 % (2-11); Neutrophils Percent Auto 55.6 % (45-73); Platelet Count 204 X10*3/uL (160-400); Red Blood Count 4.93 X10*6/uL (4.60-5.80); Red Cell Distribution Width 12.4 % (11.0-16.0); White Blood Count 5.3 X10*3/uL (4.8-10.8)
[2021-05-07 14:31] LABS: Alanine Aminotransferase 22 U/L (0-40); Albumin Level 4.5 g/dL (3.5-5.0); Alkaline Phosphatase 96 U/L (39-117); Anion Gap 11 (12-20); Aspartate Amino Transferase 23 U/L (5-37); Blood Urea Nitrogen 20 mg/dL (9-16); Carbon Dioxide 29 mmol/L (22-29); Chloride 104 mmol/L (96-108); Estimated Glomerular Filt Rate > 60; Glucose Random 90 mg/dL (60-115); Potassium 4.3 mmol/L (3.3-5.1); Sodium 140 mmol/L (135-145); Total Protein 7.6 g/dL (6.5-8.0)
[2021-05-07 14:40] LABS: Free T4 (Free Thyroxine) 1.22 ng/dL (0.71-1.85)
== END 2021-05-07 11:15 | disposition home or self-care (01) ==
LOC: HO.10HDL 11:14
PROVIDERS: Visit Provider Internal Medicine
DX: E03.9 Hypothyroidism, unspecified (principal); E78.00 Pure hypercholesterolemia, unspecified; J44.9 Chronic obstructive pulmonary disease, unspecified; N40.0 Benign prostatic hyperplasia without lower urinary tract symptoms
CPT/HCPCS: 36415; 80053; 84439; 84443; 85025

== ENCOUNTER → 2021-05-21 11:11 | Outpatient (BNVA) | payer MEDICARE, OTHER, SELFPAY | PROVIDERS: PCP Internal Medicine; Visit Provider Urology | DX: N40.1 Benign prostatic hyperplasia with lower urinary tract symptoms (principal); N35.919 Unspecified urethral stricture, male, unspecified site | CPT/HCPCS: 99212 ==

== ENCOUNTER → 2021-08-31 11:26 | Outpatient (BNVA) | payer MEDICARE, OTHER, SELFPAY | PROVIDERS: PCP Internal Medicine; Visit Provider Internal Medicine | DX: J44.9 Chronic obstructive pulmonary disease, unspecified (principal); J84.10 Pulmonary fibrosis, unspecified; R91.1 Solitary pulmonary nodule; Z88.8 Allergy status to other drugs, medicaments and biological substances; Z79.899 Other long term (current) drug therapy | CPT/HCPCS: 99212 ==

== ENCOUNTER 2021-10-20 07:32 | Outpatient (REF) | payer MEDICARE, OTHER, SELFPAY ==
[2021-10-20 10:14] LABS: MANUAL DIFF FLAG NO
[2021-10-20 10:28] LABS: Basophils Absolute Auto 0.1 X10*3/uL (0.0-0.2); Basophils Percent Auto 1.7 % (0-2); Eosinophils Absolute Auto 0.3 X10*3/uL (0.0-0.4); Hematocrit 43.8 % (42.0-52.0); Hemoglobin 14.6 g/dl (14.0-18.0); Imm Gran Abs Auto 0.01 X10*3/uL (0.00-0.03); Imm Gran Pct Auto 0.2 % (0.0-0.4); Lymphocytes Absolute Auto 1.3 X10*3/uL (1.2-4.9); Mean Corpuscular HGB Conc 33.3 g/dl (31.0-36.0); Mean Corpuscular Volume 90.1 fL (80.0-98.0); Mean Platelet Volume 9.5 fL (9.4-12.4); Monocytes Absolute Auto 0.5 X10*3/uL (0.1-1.2); Monocytes Percent Auto 10.5 % (2-11); Neutrophils Absolute Auto 2.9 x10*3/uL (2.0-8.3); Neutrophils Percent Auto 56.6 % (45-73); Platelet Count 211 X10*3/uL (160-400); Red Blood Count 4.86 X10*6/uL (4.60-5.80); Red Cell Distribution Width 12.1 % (11.0-16.0); White Blood Count 5.2 X10*3/uL (4.8-10.8)
[2021-10-20 10:54] LABS: Alanine Aminotransferase 27 U/L (0-40); Albumin Level 4.3 g/dL (3.5-5.0); Alkaline Phosphatase 84 U/L (39-117); Anion Gap 14 (12-20); Aspartate Amino Transferase 24 U/L (5-37); Bilirubin Total 0.8 mg/dL (0.0-1.0); Blood Urea Nitrogen 26 mg/dL (9-16); Calcium 8.9 mg/dL (8.4-10.2); Carbon Dioxide 25 mmol/L (22-29); Chloride 105 mmol/L (96-108); Cholesterol 172 mg/dL; Estimated Glomerular Filt Rate 60; Glucose Fasting 97 mg/dL (60-99); HDL Cholesterol 47 mg/dL; LDL Cholesterol Calculated 99 mg/dl; Potassium 4.1 mmol/L (3.3-5.1); Sodium 140 mmol/L (135-145); Total Protein 7.4 g/dL (6.5-8.0); Triglycerides 131 mg/dL
[2021-10-20 11:16] LABS: Free T4 (Free Thyroxine) 0.92 ng/dL (0.71-1.85); Prostate Specific Antigen Scr 0.41 ng/mL (<0.05-4.0); Thyroid Stimulating Hormone 12.53 uIU/mL (0.32-4.0)
== END 2021-10-20 07:33 | disposition home or self-care (01) ==
LOC: HO.10HDL 07:32
PROVIDERS: Absent Provider Urology; Visit Provider Internal Medicine
DX: E78.00 Pure hypercholesterolemia, unspecified (principal); E03.9 Hypothyroidism, unspecified; J44.9 Chronic obstructive pulmonary disease, unspecified; Z12.5 Encounter for screening for malignant neoplasm of prostate
CPT/HCPCS: 36415; 80053; 80061; 84153; 84439; 84443; 85025

== ENCOUNTER → 2021-11-12 11:30 | Outpatient (BNVA) | payer MEDICARE, OTHER, SELFPAY | PROVIDERS: PCP Internal Medicine; Visit Provider Urology | DX: N35.919 Unspecified urethral stricture, male, unspecified site (principal); N40.1 Benign prostatic hyperplasia with lower urinary tract symptoms | CPT/HCPCS: 99212 ==

== ENCOUNTER 2021-12-09 07:34 | Outpatient (REF) | payer MEDICARE, OTHER, SELFPAY ==
[2021-12-09 11:24] LABS: Free T4 (Free Thyroxine) 1.16 ng/dL (0.71-1.85); Thyroid Stimulating Hormone 7.07 uIU/mL (0.32-4.0)
== END 2021-12-09 07:35 | disposition home or self-care (01) ==
LOC: HO.10HDL 07:34
PROVIDERS: Visit Provider Internal Medicine
DX: E05.90 Thyrotoxicosis, unspecified without thyrotoxic crisis or storm (principal)
CPT/HCPCS: 36415; 84439; 84443

== ENCOUNTER 2022-01-28 07:35 | Outpatient (REF) | payer MEDICARE, OTHER, SELFPAY ==
[2022-01-28 12:41] LABS: Free T4 (Free Thyroxine) 1.09 ng/dL (0.71-1.85)
== END 2022-01-28 07:36 | disposition home or self-care (01) ==
LOC: HO.10HDL 07:35
PROVIDERS: Visit Provider Internal Medicine
DX: E03.9 Hypothyroidism, unspecified (principal)
CPT/HCPCS: 36415; 84439; 84443

== ENCOUNTER 2022-02-14 11:34 | Outpatient (REF) | payer MEDICARE, OTHER, SELFPAY ==
[2022-02-14 12:22] LABS: Influenza A PCR POSITIVE (Negative); Influenza B PCR NEGATIVE (Negative); Resp Syncy Virus RNA Qual PCR NEGATIVE (Negative); SARS COV2 PCR INHOUSE NEGATIVE (Negative)
== END 2022-02-14 11:35 | disposition home or self-care (01) ==
LOC: HO.LNP 11:34
PROVIDERS: Visit Provider Internal Medicine
DX: Z20.822 Contact with and (suspected) exposure to COVID-19 (principal); R05.9 Cough, unspecified; R50.9 Fever, unspecified
CPT/HCPCS: 0241U

== ENCOUNTER 2022-02-21 15:35 | Outpatient (REF) | payer MEDICARE, OTHER, SELFPAY ==
--- NOTE | ~2022-02-21 | XR_ITS ---
EXAMINATION: XR CHEST CLINICAL INFORMATION: Bronchitis. COMPARISON: Chest x-ray November 20182019 TECHNIQUE: 2 views of the chest were obtained. FINDINGS: Lungs are clear. No pulmonary vascular congestion. There is no pleural effusion. The heart size is normal. The cardiac and mediastinal contours are normal. There are calcifications of the thoracic aorta. There are multilevel degenerative changes of dorsal spine. XR/XR chest 2V IMPRESSION: Unremarkable examination.
== END 2022-02-21 15:36 | disposition home or self-care (01) ==
LOC: HO.XRAY 15:35
PROVIDERS: PCP Internal Medicine; Visit Provider Internal Medicine
DX: J44.9 Chronic obstructive pulmonary disease, unspecified (principal); J84.10 Pulmonary fibrosis, unspecified; R91.1 Solitary pulmonary nodule; J40 Bronchitis, not specified as acute or chronic; Z91.89 Other specified personal risk factors, not elsewhere classified
CPT/HCPCS: 71046; 99212

== ENCOUNTER → 2022-03-03 11:13 | Outpatient (BNVA) | payer MEDICARE, OTHER, SELFPAY | PROVIDERS: PCP Internal Medicine; Visit Provider Internal Medicine | DX: J44.9 Chronic obstructive pulmonary disease, unspecified (principal); J84.10 Pulmonary fibrosis, unspecified; R91.1 Solitary pulmonary nodule; Z87.891 Personal history of nicotine dependence; Z88.8 Allergy status to other drugs, medicaments and biological substances; Z79.899 Other long term (current) drug therapy | CPT/HCPCS: 99212 ==

== ENCOUNTER → 2022-05-24 10:51 | Outpatient (BNVA) | payer MEDICARE, OTHER, SELFPAY | PROVIDERS: PCP Internal Medicine; Visit Provider Urology | DX: N35.919 Unspecified urethral stricture, male, unspecified site (principal) | CPT/HCPCS: Q3014 ==

== ENCOUNTER 2022-06-13 07:33 | Outpatient (REF) | payer MEDICARE, OTHER, SELFPAY ==
[2022-06-13 11:02] LABS: MANUAL DIFF FLAG NO
[2022-06-13 11:06] LABS: Basophils Percent Auto 0.9 % (0-2); Eosinophils Absolute Auto 0.3 X10*3/uL (0.0-0.4); Eosinophils Percent Auto 6.1 % (0-4); Hematocrit 42.7 % (42.0-52.0); Hemoglobin 14.1 g/dl (14.0-18.0); Imm Gran Abs Auto 0.01 X10*3/uL (0.00-0.03); Imm Gran Pct Auto 0.2 % (0.0-0.4); Lymphocytes Absolute Auto 1.1 X10*3/uL (1.2-4.9); Lymphocytes Percent Auto 26.2 % (20-40); Mean Corpuscular Hemoglobin 29.3 pg (27.0-33.0); Mean Corpuscular Volume 88.8 fL (80.0-98.0); Mean Platelet Volume 9.5 fL (9.4-12.4); Monocytes Absolute Auto 0.4 X10*3/uL (0.1-1.2); Monocytes Percent Auto 10.4 % (2-11); Neutrophils Absolute Auto 2.4 x10*3/uL (2.0-8.3); Neutrophils Percent Auto 56.2 % (45-73); Platelet Count 185 X10*3/uL (160-400); Red Blood Count 4.81 X10*6/uL (4.60-5.80); Red Cell Distribution Width 12.1 % (11.0-16.0); White Blood Count 4.2 X10*3/uL (4.8-10.8)
[2022-06-13 11:20] LABS: Alanine Aminotransferase 22 U/L (0-40); Albumin Level 4.2 g/dL (3.5-5.0); Alkaline Phosphatase 77 U/L (39-117); Anion Gap 11 (12-20); Aspartate Amino Transferase 23 U/L (5-37); Bilirubin Total 0.6 mg/dL (0.0-1.0); Blood Urea Nitrogen 18 mg/dL (9-16); Carbon Dioxide 26 mmol/L (22-29); Chloride 108 mmol/L (96-108); Estimated Glomerular Filt Rate > 60; Glucose Random 122 mg/dL (60-115); Sodium 141 mmol/L (135-145); Total Protein 7.1 g/dL (6.5-8.0)
[2022-06-13 11:44] LABS: Free T4 (Free Thyroxine) 1.12 ng/dL (0.71-1.85); Thyroid Stimulating Hormone 3.13 uIU/mL (0.32-4.0)
== END 2022-06-13 07:34 | disposition home or self-care (01) ==
LOC: HO.10HDL 07:33
PROVIDERS: Visit Provider Internal Medicine
DX: E03.9 Hypothyroidism, unspecified (principal); J44.9 Chronic obstructive pulmonary disease, unspecified; N40.0 Benign prostatic hyperplasia without lower urinary tract symptoms; E78.00 Pure hypercholesterolemia, unspecified
CPT/HCPCS: 36415; 80053; 84439; 84443; 85025

== ENCOUNTER → 2022-09-01 11:13 | Outpatient (BNVA) | payer MEDICARE, OTHER, SELFPAY | PROVIDERS: PCP Internal Medicine; Visit Provider Internal Medicine | DX: J44.9 Chronic obstructive pulmonary disease, unspecified (principal); J84.10 Pulmonary fibrosis, unspecified; R91.1 Solitary pulmonary nodule; Z91.89 Other specified personal risk factors, not elsewhere classified | CPT/HCPCS: 99212 ==

== ENCOUNTER → 2022-11-25 10:53 | Outpatient (BNVA) | payer MEDICARE, OTHER, SELFPAY | PROVIDERS: PCP Internal Medicine; Visit Provider Urology | DX: N35.919 Unspecified urethral stricture, male, unspecified site (principal) | CPT/HCPCS: 51798; 99212 ==

== ENCOUNTER 2022-12-22 07:51 | Outpatient (REF) | payer MEDICARE, OTHER, SELFPAY ==
[2022-12-22 10:48] LABS: MANUAL DIFF FLAG NO
[2022-12-22 10:59] LABS: Basophils Absolute Auto 0.1 X10*3/uL (0.0-0.2); Basophils Percent Auto 1.5 % (0-2); Eosinophils Absolute Auto 0.4 X10*3/uL (0.0-0.4); Eosinophils Percent Auto 7.5 % (0-4); Hematocrit 45.7 % (42.0-52.0); Hemoglobin 15.3 g/dl (14.0-18.0); Imm Gran Abs Auto 0.02 X10*3/uL (0.00-0.03); Imm Gran Pct Auto 0.4 % (0.0-0.4); Lymphocytes Absolute Auto 1.3 X10*3/uL (1.2-4.9); Lymphocytes Percent Auto 24.6 % (20-40); Mean Corpuscular HGB Conc 33.5 g/dl (31.0-36.0); Mean Corpuscular Hemoglobin 29.2 pg (27.0-33.0); Mean Corpuscular Volume 87.2 fL (80.0-98.0); Mean Platelet Volume 9.6 fL (9.4-12.4); Monocytes Absolute Auto 0.5 X10*3/uL (0.1-1.2); Monocytes Percent Auto 10.4 % (2-11); Neutrophils Absolute Auto 2.9 x10*3/uL (2.0-8.3); Neutrophils Percent Auto 55.6 % (45-73); Platelet Count 220 X10*3/uL (160-400); Red Blood Count 5.24 X10*6/uL (4.60-5.80); Red Cell Distribution Width 12.1 % (11.0-16.0); White Blood Count 5.2 X10*3/uL (4.8-10.8)
[2022-12-22 11:41] LABS: Alanine Aminotransferase 26 U/L (0-40); Albumin Level 4.4 g/dL (3.5-5.0); Alkaline Phosphatase 81 U/L (39-117); Anion Gap 13 (12-20); Aspartate Amino Transferase 26 U/L (5-37); Bilirubin Total 1.1 mg/dL (0.0-1.0); Blood Urea Nitrogen 21 mg/dL (9-16); Calcium 9.3 mg/dL (8.4-10.2); Carbon Dioxide 26 mmol/L (22-29); Chloride 105 mmol/L (96-108); Cholesterol 174 mg/dL; Estimated Glomerular Filt Rate > 60; Glucose Fasting 96 mg/dL (60-99); HDL Cholesterol 47 mg/dL; LDL Cholesterol Calculated 109 mg/dl; Sodium 140 mmol/L (135-145); Total Protein 7.5 g/dL (6.5-8.0); Triglycerides 93 mg/dL
[2022-12-22 11:43] LABS: Free T4 (Free Thyroxine) 1.18 ng/dL (0.71-1.85); Prostate Specific Antigen 0.79 ng/mL (<0.05-4.0); Thyroid Stimulating Hormone 6.16 uIU/mL (0.32-4.0)
== END 2022-12-22 07:52 | disposition home or self-care (01) ==
LOC: HO.10HDL 07:51
PROVIDERS: Visit Provider Internal Medicine
DX: Z12.5 Encounter for screening for malignant neoplasm of prostate (principal); E03.9 Hypothyroidism, unspecified; N40.1 Benign prostatic hyperplasia with lower urinary tract symptoms; E78.00 Pure hypercholesterolemia, unspecified
CPT/HCPCS: 36415; 80053; 80061; 84153; 84439; 84443; 85025

== ENCOUNTER → 2023-03-01 11:11 | Outpatient (BNVA) | payer MEDICARE, OTHER, SELFPAY | PROVIDERS: PCP Internal Medicine; Visit Provider Internal Medicine | DX: J44.9 Chronic obstructive pulmonary disease, unspecified (principal); J84.10 Pulmonary fibrosis, unspecified; R91.1 Solitary pulmonary nodule; Z91.89 Other specified personal risk factors, not elsewhere classified | CPT/HCPCS: 99212 ==

== ENCOUNTER 2023-03-27 12:55 | Outpatient (REF) | payer MEDICARE, OTHER, SELFPAY ==
--- NOTE | ~2023-03-27 | CT_ITS ---
EXAMINATION: CT CHEST WITHOUT CONTRAST CLINICAL INFORMATION: Pulmonary fibrosis COMPARISON: Previous chest CT February 2021 and chest x-ray January 2022 TECHNIQUE: Multidetector volumetric CT imaging of the chest was done. Axial MIP volume rendering provided. Sagittal and coronal reformatted images were obtained. This CT examination was performed using dose optimization techniques as appropriate, variously including the following: *Automated exposure control *Adjustment of mA and/or kV according to patient size (this includes techniques or standardized protocols for targeted exams where dose is matched to indication/reason for exam; i.e. extremities or head) *Use of iterative reconstruction technique DLP: 174 mGy-cm FINDINGS: ACCOUNT MANAGEMENT SPECIALIST: LUNGS: There are mild increased peripheral reticular markings questionable for mild interstitial lung disease. This is seen diffusely throughout the lungs. There is mild biapical pleural and parenchymal scarring. No increased peripheral attenuation, traction bronchiolectasis for honeycombing. There are small bilateral pulmonary nodules that are stable. Largest pulmonary nodule is a peripheral or subpleural right lower lobe nodule and the lateral costophrenic sulcus measuring 7 mm axial image 180 series 8. No new pulmonary nodule. Chronic subsegmental atelectasis or scarring in the lingula and right middle lobe. MEDIASTINUM: Small mediastinal lymph nodes similar to previous exam. No enlarged lymph nodes. CORONARY ARTERY CALCIFICATION: Mild. There is also aortic valve calcification. PLEURA: There is no pleural effusion. No pleural mass or thickening. AXILLA: No lymphadenopathy. UPPER ABDOMEN: Right renal stone. OSSEOUS STRUCTURES: Degenerative changes of the spine. CT/CT chest wo IV con IMPRESSION: Stable pulmonary nodules. Question mild peripheral interstitial disease. Fleischner guidelines were followed.
== END 2023-03-27 12:56 | disposition home or self-care (01) ==
LOC: HO.CT 12:55
PROVIDERS: PCP Internal Medicine; Visit Provider Internal Medicine
DX: J84.10 Pulmonary fibrosis, unspecified (principal); Z91.89 Other specified personal risk factors, not elsewhere classified; R91.1 Solitary pulmonary nodule
CPT/HCPCS: 71250

== ENCOUNTER 2023-05-25 10:56 | Outpatient (REF) | payer MEDICARE, OTHER, SELFPAY | END 2023-05-25 10:57 | disposition home or self-care (01) | LOC: HO.LAB 10:56 | PROVIDERS: Visit Provider Urology | DX: N39.0 Urinary tract infection, site not specified (principal); N35.919 Unspecified urethral stricture, male, unspecified site; N40.1 Benign prostatic hyperplasia with lower urinary tract symptoms | CPT/HCPCS: 51798; 87086; 87088; 87186; 99212 ==

== ENCOUNTER 2023-06-09 07:20 | Outpatient (REF) | payer MEDICARE, OTHER, SELFPAY ==
[2023-06-09 10:43] LABS: MANUAL DIFF FLAG NO
[2023-06-09 10:49] LABS: Basophils Absolute Auto 0.1 X10*3/uL (0.0-0.2); Basophils Percent Auto 1.3 % (0-2); Eosinophils Absolute Auto 0.2 X10*3/uL (0.0-0.4); Eosinophils Percent Auto 4.9 % (0-4); Hematocrit 46.2 % (42.0-52.0); Hemoglobin 15.4 g/dl (14.0-18.0); Imm Gran Abs Auto 0.01 X10*3/uL (0.00-0.03); Imm Gran Pct Auto 0.2 % (0.0-0.4); Lymphocytes Absolute Auto 1.3 X10*3/uL (1.2-4.9); Lymphocytes Percent Auto 27.6 % (20-40); Mean Corpuscular HGB Conc 33.3 g/dl (31.0-36.0); Mean Corpuscular Hemoglobin 29.2 pg (27.0-33.0); Mean Corpuscular Volume 87.7 fL (80.0-98.0); Mean Platelet Volume 9.5 fL (9.4-12.4); Monocytes Absolute Auto 0.5 X10*3/uL (0.1-1.2); Monocytes Percent Auto 10.9 % (2-11); Neutrophils Absolute Auto 2.6 x10*3/uL (2.0-8.3); Neutrophils Percent Auto 55.1 % (45-73); Platelet Count 195 X10*3/uL (160-400); Red Blood Count 5.27 X10*6/uL (4.60-5.80); Red Cell Distribution Width 11.9 % (11.0-16.0); White Blood Count 4.7 X10*3/uL (4.8-10.8)
[2023-06-09 11:59] LABS: Anion Gap 12 (12-20); Blood Urea Nitrogen 20 mg/dL (9-16); Calcium 9.7 mg/dL (8.4-10.2); Carbon Dioxide 25 mmol/L (22-29); Chloride 106 mmol/L (96-108); Estimated Glomerular Filt Rate > 60; Glucose Random 90 mg/dL (60-115); Potassium 4.1 mmol/L (3.3-5.1); Sodium 139 mmol/L (135-145)
[2023-06-09 12:05] LABS: Free T4 (Free Thyroxine) 1.13 ng/dL (0.71-1.85); Thyroid Stimulating Hormone 6.84 uIU/mL (0.32-4.0)
== END 2023-06-09 07:21 | disposition home or self-care (01) ==
LOC: HO.10HDL 07:20
PROVIDERS: Visit Provider Internal Medicine
DX: E03.9 Hypothyroidism, unspecified (principal); E78.00 Pure hypercholesterolemia, unspecified
CPT/HCPCS: 36415; 80048; 84439; 84443; 85025

== ENCOUNTER → 2023-07-04 13:57 | Outpatient (REF) | payer MEDICARE, OTHER, SELFPAY ==
--- NOTE | 2023-07-04 13:59 | CA_ITS ---
Transthoracic Echocardiogram Patient (Last, First, Middle): Jarad Bishop A Gender: Male Date of : 1945 Age: 77 Procedure Date: 07/04/2023 Procedure Type: Transthoracic Echocardiogram Location: OP Height: 170.18 cm Weight: 78.02 kg BSA: 1.90 m2 Heart Rate: bpm BP: 140 / 62 mmHg Weatherization And Housing Inspector: TO Referring MD: Heath Chapman MD Symptoms: R01.1 MURMUR Study Quality: Fair ECG Rhythm: Sinus Conclusions: - The left ventricular systolic function is normal. The calculated ejection fraction is 58% by biplane method. - There is moderate calcification of the aortic valve. There is mild aortic valve stenosis. Findings Left Ventricle Normal left ventricular cavity size. The left ventricular systolic function is normal. The calculated ejection fraction is 58% by biplane method. There is no evidence of regional wall motion abnormalities. Evidence suggests grade I (mild) diastolic dysfunction. There is moderate septal and moderate basal asymmetric hypertrophy. Right Ventricle Normal right ventricular cavity size and systolic function. Atria Both atria are normal in size. Aortic Valve There is moderate calcification of the aortic valve. There is mild aortic valve stenosis. The peak aortic velocity is 2.26 m/s with a calculated peak gradient of 20 mmHg. The mean gradient is 12 mmHg. The aortic valve area is 1.67 cm2. Mitral Valve There is mild mitral annular calcification. There is trace mitral valve regurgitation. There is no mitral valve stenosis. Pulmonic Valve The pulmonic valve is likely normal. Tricuspid Valve There is no tricuspid valve regurgitation. Tricuspid regurgitation envelope is inadequate for calculation of right ventricular systolic pressure. Great Vessels The asc aorta is normal in size. Venous The inferior vena cava is normal in size and collapses greater than 50% with inspiration. Pericardium/Pleural There is no evidence of pericardial effusion. Prior Study Comparison No significant change compared to prior study dated: 10/01/2016. Measurements 2D Linear Measurements IVSd: 1.37 0.6-0.9/0.6-1.0 cm LVIDd: 4.88 3.9-5.3/4.2-5.9 cm LVIDd Index: 2.57 2.4-3.2/2.2-3.1 cm/m2 LVIDs: 3.57 2.0-3.6 cm LVPWd: 0.90 0.7-1.1 cm LA Diam: 3.40 2.7-3.8/3.0-4.0 cm LAIDs Index: 1.79 1.5-2.3 cm/m2 LV Mass: 259.76 67-162/88-224 g LV Mass Index: 136.72 43-95/49-115 g/m2 LVOT Diam: 2.10 3.0+(-)1.3 cm 2D Systolic Function EF 4C: 55.70 >55% EF 2C: 60.20 >55% EF BiP: 57.90 >55% Mitral Valve MV VTI: 0.36 MV Pk Tony: 1.19 MV Mn Tony: 0.61 MV Pk Grad: 6.00 MV Mn Grad: 2.00 MV Pk E: 0.83 MV PK A: 0.91 MV Decel Time: 191.00 E/A: 0.90 E'Lateral: 5.66 E'Medial: 7.07 E/E' Med: 11.70 E/E' Lat: 14.60 PHT: 56.00 MVA PHT: 3.93 MVA Continuity: 2.70 Decel [place]: 4.33 Aortic Valve AoV Pk Tony: 2.26 AoV Mn Tony: 1.64 AoV VTI: 0.58 AoV Pk Grad: 20.00 Aov Mn Grad: 12.00 VARUN Cont.VTI: 1.67 LVOT LVOT Pk Tony: 1.20 LVOT Mn Tony: 0.84 LVOT VTI: 0.28 LVOT Pk Grad: 6.00 LVOT Mn Grad: 3.00 LVOT Diam: 2.10 LVOT Area: 3.46 Diastolic Function MV Pk E: 0.83 MV Pk A: 0.91 E/A: 0.90 E'Medial: 7.07 E/E' Med: 11.70 E' Laterial: 5.66 E/E' Lat: 14.60 Right Ventricle TAPSE (mm): 24.00 TVS' Tony: 12.70 Tricuspid Valve RA Press: 3.00 Great Vessels Aorta Sinus of Valsalva: 3.83 2.0-3.5 cm Ao Asc: 3.50 2.1-3.4 cm Updated in Other Vendor System with Status of Final Kush Kan MD electronically signed on 07/05/2023 10:25:35 AM with status of Final
== END ==
LOC: HO.CARD 13:57
PROVIDERS: PCP Internal Medicine; Visit Provider Internal Medicine
DX: R01.1 Cardiac murmur, unspecified (principal)
CPT/HCPCS: 93306

== ENCOUNTER → 2023-07-04 13:59 | Outpatient (BNV) | payer MEDICARE, OTHER, SELFPAY | PROVIDERS: PCP Internal Medicine; Visit Provider Internal Medicine | DX: I35.0 Nonrheumatic aortic (valve) stenosis (principal); I35.8 Other nonrheumatic aortic valve disorders | CPT/HCPCS: 93306 ==

== ENCOUNTER 2024-02-01 12:58 | Outpatient (AMB) | payer MEDICARE, OTHER, SELFPAY ==
--- NOTE | 2024-02-01 12:59 | MHC.OFFVIS ---
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/ aortic stenosis Intake Note: NPV w/ EKG Office Assistant Required: No Accompanied by: Self / Same As Patient Allergies tamsulosin [TAMSULOSIN] Allergy (Unknown, Verified 02/01/24 13:02) HIVES Medication List - Last Reconciled 02/01/24 by Kush Kan MD albuterol sulfate 90 mcg/actuation (Ventolin HFA) 2 puffs inhalation QID PRN ascorbic acid (vitamin C) 500 mg PO DAILY atorvastatin 20 mg PO DAILY levothyroxine 200 mcg PO DAILY montelukast 10 mg PO DAILY multivitamin 1 tab PO DAILY Symbicort 80-4.5 mcg/actuation (budesonide-formoterol) 2 puffs inhalation BID 90 days NS trospium 20 mg PO DAILY 90 days trospium 20 mg PO DAILY 30 days zinc 50 mg PO DAILY HPI HPI Comments History of Present Illness Details Jayant is here for consultation regarding aortic stenosis. He does not have any history of coronary disease myocardial infarction or cardiomyopathy. It seems that a routine echocardiogram for cardiac murmur had picked up aortic stenosis. Patient himself does not have any symptoms whatsoever. 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 [facility] Medical History (Updated 02/01/24 @ 13:19 by Kush Kan MD) LBBB (left bundle branch block) Bronchitis Pulmonary nodule less than 6 mm in diameter with low risk for malignant neoplasm COPD (chronic obstructive pulmonary disease) Pulmonary fibrosis Surgical History H/O inguinal hernia repair Family History Father Emphysema lung Mother No problems noted. 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 Tobacco Use Status: Former Tobacco user service: Yes Current occupational status: retired Review of Systems Const Denies chills, Denies daytime sleepiness, Denies fatigue, Denies fever(s), Denies frequent falls, Denies night sweats, Denies snoring, Denies weakness, Denies weight gain and Denies weight loss Eyes Denies loss of vision ENT Denies dizziness and Denies hearing loss Card Denies chest pain, Denies chest pain with activity, Denies syncope, Denies rapid heart rate, Denies edema, Denies claudication, Denies leg edema, Denies lightheadedness, Denies palpitations, Denies dyspnea, Denies dyspnea on exertion and Denies orthopnea Resp Denies cough, Denies excessive phlegm production, Denies dyspnea, Denies dyspnea on exertion, Denies snoring and Denies wheezing GI Denies abdominal pain, Denies hematochezia, Denies change in bowel habits, Denies change in stool character, Denies heartburn, Denies nausea and Denies vomiting Denies hematuria, Denies dysuria and Denies urinary frequency Musc Denies arthralgias, Denies muscle weakness, Denies numbness and Denies tingling Skin/Breast Denies nail changes and Denies rash Neuro Denies Abnormal speech present, Denies dizziness, Denies syncope, Denies frequent falls, Denies loss of vision, Denies memory loss, Denies numbness, Denies tingling and Denies weakness Psych Denies depression and Denies memory loss Endo Denies fatigue and Denies palpitations Aller/Immun Denies wheezing Physical Exam Vital Signs: Last Vital Signs Pulse 69 02/01/24 13:02 BP 122/60 02/01/24 13:02 BMI result Body Mass Index 26.5 Const General: comfortable and no acute distress Orientation/consciousness: patient oriented x3 HEENT Other: Unremarkable Head: Yes normal to inspection Neck Neck: Yes normal visual inspection Chest Chest palpation & inspection: normal inspection of the chest Resp Auscultation: clear to auscultation bilaterally Cardio Palpation: normal PMI Heart sounds: S1 normal heart sound present, S2 normal heart sound present, no gallops, Murmur heart sound present systolic II/ and at the right sternal border and no rubs GI Palpation (GI): Soft to palpation Back/Spine/Pelvis Other: unremarkable Skin General skin exam: no rashes or lesions noted Neuro General: patient oriented x3 Speech: No Abnormal speech present Extrem General: Yes normal to inspection Psych Mental Status: mental status grossly normal Office Procedures EKG Details: EKG with sinus rhythm at 69/Min; premature supraventricular complexes; left bundle-branch block. [id number], Complete Assessment & Plan Assessment & Plan (1) Non-rheumatic aortic stenosis: Code(s): I35.0 - Nonrheumatic aortic (valve) stenosis Plan: In the echocardiogram, LVEF 58%. Moderate calcification aortic valve. Mean gradient across aortic valve was 12 mm Hg. Calculated valve area of 1.6 sq cm. Overall mild stenosis. Pathophysiology discussed with patient. Not hemodynamically significant. May repeat echocardiogram in due course. (2) LBBB (left bundle branch block): Code(s): I44.7 - Left bundle-branch block, unspecified Plan: EKG shows left bundle-branch block pattern. Going back 2009, he still had the same finding. Hence seems to be chronic. We will get a pharmacological stress perfusion imaging study. Again findings discussed with patient and he understands. Orders: Orders CA lexiscan stress w trevon Today I20.9 - Angina pectoris, unspecified, I44.7 - Left bundle-branch block, unspecified NM cardiolite stress test Today I44.7 - Left bundle-branch block, unspecified, R07.2 - Precordial pain Coding Level of Care Code New Pt Level 4 (96673) Diagnoses Non-rheumatic aortic stenosis I35.0 LBBB (left bundle branch block) I44.7 CPT Codes EKG - CPT: 51614-[id number], Complete ([id number])
[2024-02-01 13:02] VITALS: BP 122/60; PULSE 69; BMI 26.5
== END 2024-02-01 13:27 | disposition home or self-care (01) ==
PROVIDERS: PCP Internal Medicine; Visit Provider Internal Medicine
DX: I35.0 Nonrheumatic aortic (valve) stenosis (principal); I44.7 Left bundle-branch block, unspecified
CPT/HCPCS: 93010; 99214

== ENCOUNTER → 2024-02-01 12:58 | Outpatient (BNVA) | payer MEDICARE, OTHER, SELFPAY | PROVIDERS: PCP Internal Medicine; Visit Provider Internal Medicine | DX: I35.0 Nonrheumatic aortic (valve) stenosis (principal); I44.7 Left bundle-branch block, unspecified | CPT/HCPCS: 93005; 99212 ==

== ENCOUNTER 2024-02-15 07:28 | Outpatient (REF) | payer MEDICARE, OTHER, SELFPAY ==
[2024-02-15 11:04] LABS: MANUAL DIFF FLAG NO
[2024-02-15 11:12] LABS: Basophils Absolute Auto 0.1 X10*3/uL (0.0-0.2); Eosinophils Absolute Auto 0.3 X10*3/uL (0.0-0.4); Eosinophils Percent Auto 5.3 % (0-4); Hematocrit 45.3 % (42.0-52.0); Hemoglobin 15.3 g/dl (14.0-18.0); Imm Gran Abs Auto 0.02 X10*3/uL (0.00-0.03); Imm Gran Pct Auto 0.4 % (0.0-0.4); Lymphocytes Absolute Auto 1.4 X10*3/uL (1.2-4.9); Lymphocytes Percent Auto 28.6 % (20-40); Mean Corpuscular HGB Conc 33.8 g/dl (31.0-36.0); Mean Corpuscular Hemoglobin 29.5 pg (27.0-33.0); Mean Corpuscular Volume 87.5 fL (80.0-98.0); Mean Platelet Volume 9.5 fL (9.4-12.4); Monocytes Absolute Auto 0.5 X10*3/uL (0.1-1.2); Monocytes Percent Auto 10.5 % (2-11); Neutrophils Absolute Auto 2.7 x10*3/uL (2.0-8.3); Neutrophils Percent Auto 54.2 % (45-73); Platelet Count 208 X10*3/uL (160-400); Red Blood Count 5.18 X10*6/uL (4.60-5.80); Red Cell Distribution Width 12.2 % (11.0-16.0); White Blood Count 4.9 X10*3/uL (4.8-10.8)
[2024-02-15 11:44] LABS: Alanine Aminotransferase 23 U/L (0-40); Albumin Level 4.2 g/dL (3.5-5.0); Alkaline Phosphatase 85 U/L (39-117); Anion Gap 13 (12-20); Aspartate Amino Transferase 24 U/L (5-37); Bilirubin Total 0.6 mg/dL (0.0-1.0); Blood Urea Nitrogen 23 mg/dL (9-16); Calcium 9.5 mg/dL (8.4-10.2); Carbon Dioxide 28 mmol/L (22-29); Chloride 104 mmol/L (96-108); Cholesterol 162 mg/dL (<200); Estimated Glomerular Filt Rate > 60; Glucose Fasting 93 mg/dL (60-99); HDL Cholesterol 48 mg/dL (>40); LDL Cholesterol Calculated 94 mg/dL (<100); Potassium 4.1 mmol/L (3.3-5.1); Sodium 141 mmol/L (135-145); Total Protein 7.7 g/dL (6.5-8.0); Triglycerides 102 mg/dL (<150)
[2024-02-15 11:48] LABS: Prostate Specific Antigen Scr 1.01 ng/mL (<0.05-4.0)
[2024-02-15 11:51] LABS: Free T4 (Free Thyroxine) 1.36 ng/dL (0.71-1.85); Thyroid Stimulating Hormone 1.35 uIU/mL (0.32-4.0)
== END 2024-02-15 07:29 | disposition home or self-care (01) ==
LOC: HO.10HDL 07:28
PROVIDERS: Visit Provider Internal Medicine
DX: Z12.5 Encounter for screening for malignant neoplasm of prostate (principal); N40.0 Benign prostatic hyperplasia without lower urinary tract symptoms; E78.00 Pure hypercholesterolemia, unspecified; E03.9 Hypothyroidism, unspecified; R35.1 Nocturia
CPT/HCPCS: 36415; 80053; 80061; 84153; 84439; 84443; 85025

== ENCOUNTER → 2024-03-04 07:38 | Outpatient (REF) | payer MEDICARE, OTHER, SELFPAY ==
--- NOTE | ~2024-03-04 | NM_ITS ---
Myocardial perfusion study Indication: Precordial chest pain to evaluate for myocardial ischemia Technique: The patient was brought in for a Lexiscan perfusion study on 03/04/2024. Patient performed low-level exercise and was injected 0.4 mg of Lexiscan intravenously. Within a minute of injection, 30 mCi of sestamibi was given intravenously. Images were obtained using the SPECT gamma camera interlaced with the gating device. Images were obtained in supine position. Resting perfusion study was performed on 03/13/2024. Patient was administered 30 mCi of sestamibi intravenously at rest. Images were then obtained in supine position. Images obtained with and without CT attenuation. Total DLP 71 mGy-cm. Images were processed with the software and compared side to side in short axis, horizontal long axis and vertical long axis views. Findings: The stress perfusion study showed non attenuated images show mildly reduced uptake in the inferior, inferoseptal and septal of the LV myocardium. Attenuation corrected images show mildly reduced uptake in the apex of the LV myocardium.. The gated study shows normal LV systolic function with calculated LVEF of 55%. LV cavity is normal in size. The gated study shows normal systolic wall thickening and contraction of segments. Resting study shows no significant change in perfusion pattern compared to stress perfusion study. Gating at rest was not performed . The findings are consistent with no clear reversible defect, overall findings suggestive normal myocardial perfusion. NM/NM cardiolite stress test Impression: 1. Myocardial perfusion imaging study shows likely normal myocardial perfusion 2. Gated LVEF is 55% 3. Transient ischemic dilatation not present EKG is nondiagnostic for ischemia
--- NOTE | 2024-03-04 07:42 | CA_ITS ---
Acquisition Time: 2024-03-04 08:12:42 Total Exercise Time: 00:02:00 Test Indications: LBBB, COPD Medications: SEE H Protocol: LEXISCAN Max HR: 102 BPM 72% of Pred: 140 BPM Max BP: 144/070 mmHG Max Work Load: 1.0 METS Pharmacoligical stress test with lexiscan injection while sitting and slowly marching in place until heart rate reached 90s due to low heart rate, with isolated PVCs and PACs and ventricular cuplet, with normotenisve response to injection, with nondiagnosiitic EKGs. Nuclear images pending. Test reviewed with Dr. Bautista. Referred By: Kush Kan Overread By: Josefa Lyon
== END ==
LOC: HO.CARD 07:38
PROVIDERS: PCP Internal Medicine; Visit Provider Internal Medicine
DX: R07.2 Precordial pain (principal); I20.9 Angina pectoris, unspecified; I44.7 Left bundle-branch block, unspecified
CPT/HCPCS: 78452; 93017; A9500; J0280; J2785

== ENCOUNTER → 2024-03-04 07:42 | Outpatient (BNV) | payer MEDICARE, OTHER, SELFPAY | PROVIDERS: PCP Internal Medicine; Visit Provider Nurse Practitioner | DX: R07.2 Precordial pain (principal) | CPT/HCPCS: 78452; 93016; 93018 ==

== ENCOUNTER 2024-03-05 09:54 | Outpatient (AMB) | payer MEDICARE, OTHER, SELFPAY ==
--- NOTE | 2024-03-05 10:04 | A.OFFVIS_ITS ---
Intake Intake Visit Reasons: 6M PSA/PVR(set)Confirmed Intake Note: Patient is Present for Follow Up Urology Medication: None Antibiotic Allergies:None Blood Thinners:None Pharmacy: [facility] PVR: 18 Allergies tamsulosin [TAMSULOSIN] Allergy (Unknown, Verified 03/05/24 10:05) HIVES Medication List - Last Reconciled 03/05/24 by Keith Leiva MD albuterol sulfate 90 mcg/actuation (Ventolin HFA) 2 puffs inhalation QID PRN ascorbic acid (vitamin C) 500 mg PO DAILY atorvastatin 20 mg PO DAILY levothyroxine 200 mcg PO DAILY montelukast 10 mg PO DAILY multivitamin 1 tab PO DAILY Symbicort 80-4.5 mcg/actuation (budesonide-formoterol) 2 puffs inhalation BID 90 days NS trospium 20 mg PO DAILY 90 days trospium 20 mg PO DAILY 30 days zinc 50 mg PO DAILY HPI HPI Comments History of Present Illness Details Izaiah pool is a pleasant male. He is a patient of Dr. Chapman. He is seen for the following urologic condition - BPH - urethral stricture - overactive bladder PVR 20 cc Prior UTIs Six-month follow-up Continues dilatation 2 times per month Lower urinary tract symptoms well controlled Urgency and frequency Response to tropsium taken late afternoon Urethral stricture patency maintained by use catheter 2 times per month - preference is 18 Georgian coude olive t ip - previously had difficulty with straight catheters expected to require catheterization to be maintained for indefinite future will continue to track PSA PSA 05/17 0.2, 11.21 0.4, 12/19 0.8 PFS Medical History LBBB (left bundle branch block) Bronchitis Pulmonary nodule less than 6 mm in diameter with low risk for malignant neoplasm COPD (chronic obstructive pulmonary disease) Pulmonary fibrosis Surgical History H/O inguinal hernia repair Family History Father Emphysema lung Mother No problems noted. 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 Tobacco Use Status: Former Tobacco user service: Yes Current occupational status: retired Review of Systems Const Denies chills and Denies fever(s) Card Reports no additional complaints and Denies syncope Resp Denies cough GI Denies abdominal pain and Denies heartburn Reports as per HPI and Denies change in libido Neuro Denies syncope Psych Denies change in libido Endo Denies change in libido Physical Exam Const General: cooperative, healthy appearing, comfortable and no acute distress Orientation/consciousness: patient oriented x3 HEENT Face and sinus: Yes normal facial exam Mouth: moist mucous membranes Neck Neck: Yes normal visual inspection, Yes full ROM and Yes trachea midline Chest Chest palpation & inspection: normal inspection of the chest Resp Effort & Inspection: normal respiratory effort, able to speak in complete sentences and no respiratory distress GI Inspection: Yes normal to inspection Back/Spine/Pelvis Cervical Spine: normal cervical lordosis Thoracic/Lumbar Spine: thoracic and lumbar spine normal to inspection Skin General skin exam: no rashes or lesions noted Neuro General: patient oriented x3, gait normal, tone normal and moves all extremities Extrem General: Yes normal to inspection and Yes capillary refill normal Office Procedures Post Void Residual Post Residual Void Post Void Residual (PVR): 18 [id number] Void Residual by ultrasound Assessment & Plan Assessment & Plan (1) Urethral stricture: Code(s): N35.919 - Unspecified urethral stricture, male, unspecified site (2) Lower urinary tract symptoms due to benign prostatic hyperplasia: Code(s): N40.1 - Benign prostatic hyperplasia with lower urinary tract symptoms Plan Six-month follow-up Orders: Orders AMB Post Void Residual by ultrasound Today N40.1 - Benign prostatic hyperplasia with lower urinary tract symptoms Medications: Refilled trospium administer on an empty stomach 20 mg PO DAILY 90 days 90 tabs 1RF Patient Instructions: Imaging studies, laboratory and physical exam results were discussed and reviewed in detail. No major barriers to patient understanding were identified. An opportunity to ask questions regarding the treatment plan was provided. All questions were answered. The patient expressed understanding and agreement with the above treatment plan. The patient is aware they should contact our office by phone for worsening of their current condition or the appearance of new urologic symptoms. Compliance is encouraged with any medications and followup testing that is ordered. It is a privilege to participate in the urologic care of your patient. If you have any questions or concerns regarding treatment for the above conditions, or other urologic issues, please do not hesitate to contact me. The office telephone contact is [phone]. This note is constructed using voice recognition software. While every effort has been made to ensure accuracy bar tacker sewing machine errors may have been included. Yours sincerely, Dr Keith Leiva MD, [facility] - Urology Providers of Expert, Compassionate Care for the Genitourinary System Coding Level of Care Code Est Pt Level 3 (23504) Diagnoses Urethral stricture N35.919 Lower urinary tract symptoms due to benign prostatic hyperplasia N40.1 CPT Codes Post Residual Void - PVR CPT Code: 53455-Osgh Void Residual by ultrasound ([id number])
== END 2024-03-05 10:33 | disposition home or self-care (01) ==
PROVIDERS: PCP Internal Medicine; Visit Provider Urology
DX: N35.919 Unspecified urethral stricture, male, unspecified site (principal); N40.1 Benign prostatic hyperplasia with lower urinary tract symptoms
CPT/HCPCS: 99213

== ENCOUNTER → 2024-03-05 09:54 | Outpatient (BNVA) | payer MEDICARE, OTHER, SELFPAY | PROVIDERS: PCP Internal Medicine; Visit Provider Urology | DX: N40.1 Benign prostatic hyperplasia with lower urinary tract symptoms (principal); N35.919 Unspecified urethral stricture, male, unspecified site | CPT/HCPCS: 51798; 99212 ==

== ENCOUNTER 2024-03-13 12:29 | Outpatient (REF) | payer MEDICARE, OTHER, SELFPAY ==
--- NOTE | ~2024-03-13 | XR_ITS ---
EXAMINATION: XR KNEE, LEFT CLINICAL INFORMATION: Pain; question osteoarthritis. COMPARISON: None available. TECHNIQUE: AP, lateral, tunnel, and sunrise views of the left knee. FINDINGS: Bony alignment and mineralization are normal. The lateral, medial and patellofemoral joint space compartments are well-maintained. There is slight peripheral osteophyte formation of the medial joint space compartment. Enthesophytes arise from the upper and lower poles of the patella at the quadriceps and patellar tendon insertions. No fracture, dislocation or joint effusion is seen. There is a June-Stieda fragment adjacent to the medial femoral condyle. No foreign body is seen. XR/XR knee LT 4V IMPRESSION: 1. There is minimal osteoarthritic change of the medial joint space compartment of the left knee. 2. No left knee fracture, dislocation or joint effusion is seen. 3. A June-Stieda fragment is situated adjacent to the medial femoral condyle, consistent with old, healed MCL injury.
== END 2024-03-13 12:30 | disposition home or self-care (01) ==
LOC: HO.XRAY 12:29
PROVIDERS: PCP Internal Medicine; Visit Provider Internal Medicine
DX: M25.562 Pain in left knee (principal)
CPT/HCPCS: 73564

== ENCOUNTER → 2024-04-24 10:54 | Outpatient (BNVA) | payer MEDICARE, OTHER, SELFPAY | PROVIDERS: PCP Internal Medicine; Referring Provider Internal Medicine; Visit Provider Physician Assistant ==

== ENCOUNTER 2024-06-05 12:30 | Outpatient (AMB) | payer MEDICARE, OTHER, SELFPAY ==
--- NOTE | 2024-06-05 12:44 | A.OFFVIS_ITS ---
Intake Visit Reasons: Left knee pain Intake Note: Jarad is a 78 year old male who presents with complaints of intermittent discomfort along the medial aspect of his left knee. He states that he notices the discomfort mostly when he is sleeping on his side. He denies any significant discomfort during the day. Also noticed swelling along the anterior aspect of his knee which began several months ago. He does not recall any traumatic event preceding the onset of his swelling. He states that at his previous job he did do quite a bit of kneeling. He states that the swelling has gone down significantly over the last few weeks. He denies any locking or giving way. He does not take any medicine for his discomfort. Allergies tamsulosin [TAMSULOSIN] Allergy (Unknown, Verified 06/05/24 12:44) HIVES Medication List - Last Reconciled 06/05/24 by Luis Miguel Rose MD albuterol sulfate 90 mcg/actuation (Ventolin HFA) 2 puffs inhalation QID PRN ascorbic acid (vitamin C) 500 mg PO DAILY atorvastatin 20 mg PO DAILY levothyroxine 200 mcg PO DAILY montelukast 10 mg PO DAILY multivitamin 1 tab PO DAILY peg-electrolyte soln 420 gram 240 mL PO ONCE PRN 1 day Symbicort 80-4.5 mcg/actuation (budesonide-formoterol) 2 puffs inhalation BID 90 days NS trospium 20 mg PO DAILY 90 days zinc 50 mg PO DAILY PFSH Medical History (Updated 06/05/24 @ 13:27 by Luis Miguel Rose MD) LBBB (left bundle branch block) Bronchitis Pulmonary nodule less than 6 mm in diameter with low risk for malignant neoplasm COPD (chronic obstructive pulmonary disease) Pulmonary fibrosis Surgical History (Updated 04/24/24 @ 11:00 by Daysi Chester) Hx of colonoscopy H/O inguinal hernia repair Family History Father Emphysema lung Mother No problems noted. 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 Patient Tobacco Use Status: Former Tobacco user service: Yes Current occupational status: retired Current occupation: works for [employer] Physical Exam Const Other: Well-nourished well-developed very friendly male awake alert and oriented x3 in no acute distress Extrem Other: Bilateral lower extremity examination shows good capillary refill, no skin lesions noted, normal sensation light touch Left knee examination shows a minimal effusion, mild crepitus with range of motion, tenderness along his medial joint line, a mild amount of swelling along his prepatellar bursa, no overlying skin lesions, minimal discomfort with full range of motion equal to that of his right knee, no instability Results Reviewed Results Reviewed: X-rays of the patient's left knee show moderate joint space narrowing, no acute bony abnormalities Assessment & Plan Assessment & Plan (1) Left knee pain: Code(s): M25.562 - Pain in left knee Category: Medical Plan Mr. Bishop presents with intermittent discomfort along the medial aspect of his left knee due to early degenerative joint disease. He also has intermittent swelling along the anterior aspect of his knee due to prepatellar bursitis. I had a lengthy discussion with the patient regarding the treatment options. At this point the patient's symptoms are tolerable to him. We will hold off on a cortisone injection. Activity modifications were discussed at length with the patient. Will follow up with me on an as-needed basis should his symptoms worsen in any way. Feel free to call me at any time should questions regarding his orthopedic management arise. I spent 21 minutes in reviewing the patient's records and imaging studies, seeing the patient and documenting in the medical record. Coding Level of Care Code New Pt Level 3 (99248) Diagnoses Left knee pain M25.562
== END 2024-06-05 13:01 | disposition home or self-care (01) ==
PROVIDERS: PCP Internal Medicine; Visit Provider Orthopaedic Surgery
DX: M25.562 Pain in left knee (principal)
CPT/HCPCS: 99203

== ENCOUNTER → 2024-06-05 12:30 | Outpatient (BNVA) | payer MEDICARE, OTHER, SELFPAY | PROVIDERS: PCP Internal Medicine; Visit Provider Orthopaedic Surgery | DX: M17.12 Unilateral primary osteoarthritis, left knee (principal) | CPT/HCPCS: 99202 ==

== ENCOUNTER 2024-09-04 11:31 | Outpatient (AMB) | payer MEDICARE, OTHER, SELFPAY ==
--- NOTE | 2024-09-04 11:33 | MHC.OFFVIS ---
Intake Visit Reasons: 6m/PVR Intake Note: Patient is Present for PVR/ Urology Med: Trospium Antibiotic Allergy: None Blood Thinner:None Last PVR: 18 Todays PVR: 0ml Recent PSA: 02/15/24- 1.01 Allergies tamsulosin [TAMSULOSIN] Allergy (Unknown, Verified 06/05/24 12:44) HIVES HPI Comments Details: Izaiah pool is a pleasant male. He is a patient of Dr. Chapman. He is seen for the following urologic condition - BPH - urethral stricture - overactive bladder Six-month follow-up PVR 0 Continues dilatation 2 times per month Prior history UTI - had 1 UTI 2 months ago, used on demand ciprofloxacin Ciprofloxacin refilled Continue good response to tropsium Lower urinary tract symptoms well controlled Urgency and frequency Response to tropsium taken late afternoon Urethral stricture patency maintained by use catheter 2 times per month - preference is 18 Lao coude olive tip - previously had difficulty with straight catheters expected to require catheterization to be maintained for indefinite future will continue to track PSA PSA 05/17 0.2, . 0.4, 12/19 0.8 PFSH Medical History (Updated 06/05/24 @ 13:27 by Luis Miguel Rose MD) LBBB (left bundle branch block) Bronchitis Pulmonary nodule less than 6 mm in diameter with low risk for malignant neoplasm COPD (chronic obstructive pulmonary disease) Pulmonary fibrosis Surgical History (Updated 04/24/24 @ 11:00 by Daysi Chester) Hx of colonoscopy H/O inguinal hernia repair Family History Father Emphysema lung Mother No problems noted. 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 Patient Tobacco Use Status: Former Tobacco user service: Yes Current occupational status: retired Current occupation: works for [employer] Review of Systems Const Denies chills and Denies fever(s) Card Reports no additional complaints and Denies syncope Resp Denies cough GI Denies abdominal pain and Denies heartburn Reports as per HPI and Denies change in libido Neuro Denies syncope Psych Denies change in libido Endo Denies change in libido Physical Exam Const General: cooperative, healthy appearing, comfortable and no acute distress Orientation/consciousness: patient oriented x3 HEENT Face and sinus: Yes normal facial exam Mouth: moist mucous membranes Neck Neck: Yes normal visual inspection, Yes full ROM and Yes trachea midline Chest Chest palpation & inspection: normal inspection of the chest Resp Effort & Inspection: normal respiratory effort, able to speak in complete sentences and no respiratory distress GI Inspection: Yes normal to inspection Back/Spine/Pelvis Cervical Spine: normal cervical lordosis Thoracic/Lumbar Spine: thoracic and lumbar spine normal to inspection Skin General skin exam: no rashes or lesions noted Neuro General: patient oriented x3, gait normal, tone normal and moves all extremities Extrem General: Yes normal to inspection and Yes capillary refill normal Office Procedures Post Void Residual Post Residual Void Post Void Residual (PVR): 0 [id number]-Pbwr Void Residual by ultrasound Assessment & Plan Assessment & Plan (1) Urethral stricture: Code(s): N35.919 - Unspecified urethral stricture, male, unspecified site Category: Medical Plan Six-month follow-up tele Orders: Orders AMB Post Void Residual by ultrasound Today N40.1 - Benign prostatic hyperplasia with lower urinary tract symptoms Medications: New ciprofloxacin HCl 500 mg PO Q12H 7 days 14 tabs 0RF N12 - Tubulo-interstitial nephritis, not specified as acute or chronic, N35.919 - Unspecified urethral stricture, male, unspecified site Refilled trospium administer on an empty stomach 20 mg PO DAILY 90 days 90 tabs 1RF N35.919 - Unspecified urethral stricture, male, unspecified site Patient Instructions: Imaging studies, laboratory and physical exam results were discussed and reviewed in detail. No major barriers to patient understanding were identified. An opportunity to ask questions regarding the treatment plan was provided. All questions were answered. The patient expressed understanding and agreement with the above treatment plan. The patient is aware they should contact our office by phone for worsening of their current condition or the appearance of new urologic symptoms. Compliance is encouraged with any medications and followup testing that is ordered. It is a privilege to participate in the urologic care of your patient. If you have any questions or concerns regarding treatment for the above conditions, or other urologic issues, please do not hesitate to contact me. The office telephone contact is [phone]. This note is constructed using voice recognition software. While every effort has been made to ensure accuracy awning maker and installer errors may have been included. Yours sincerely, Dr Keith Leiva MD, [facility] - Urology Providers of Expert, Compassionate Care for the Genitourinary System Coding Level of Care Code Est Pt Level 3 (35869) Diagnoses Urethral stricture N35.919 CPT Codes Post Residual Void - PVR CPT Code: 05096-Adnv Void Residual by ultrasound ([id number])
== END 2024-09-04 12:12 | disposition home or self-care (01) ==
PROVIDERS: PCP Internal Medicine; Visit Provider Urology
DX: N35.919 Unspecified urethral stricture, male, unspecified site (principal)
CPT/HCPCS: 99213

== ENCOUNTER → 2024-09-04 11:31 | Outpatient (BNVA) | payer MEDICARE, OTHER, SELFPAY | PROVIDERS: PCP Internal Medicine; Visit Provider Urology | DX: N40.1 Benign prostatic hyperplasia with lower urinary tract symptoms (principal); N35.919 Unspecified urethral stricture, male, unspecified site; N32.81 Overactive bladder; N12 Tubulo-interstitial nephritis, not specified as acute or chronic | CPT/HCPCS: 51798; 99212 ==

== ENCOUNTER 2024-10-10 15:38 | Outpatient (AMB) | payer MEDICARE, OTHER, SELFPAY ==
[2024-10-10 15:44] VITALS: BP 140/60; PULSE 64; O2SAT 95; BMI 26.6
--- NOTE | 2024-10-10 15:44 | A.OFFVIS_ITS ---
Vital Signs 10/10/24 15:44 Height 5 ft 8 in Weight 175 lb 4.28 oz BMI 26.6 BP 140/60 H Blood Pressure Location Lt brachial Position Sitting Pulse 64 Pulse Source Pulse Oximeter Pulse Oximetry (%) 95 Oxygen Delivery Method Room Air Intake Visit Reasons: copd Intake Note: pt is here for follow up and states he is using an Advair HFA that is not working as well as symbicort. He would like this back. It is not giving him the results that the symbicort was doing. [employer] Cook Required: No Allergies tamsulosin [TAMSULOSIN] Allergy (Unknown, Verified 10/10/24 15:53) HIVES Latex, Natural Rubber Adverse Reaction (Severe, Verified 10/10/24 15:53) hives Medication List - Last Reconciled 10/10/24 by Jose Vinson MD albuterol sulfate 90 mcg/actuation (Ventolin HFA) 2 puffs inhalation QID PRN ascorbic acid (vitamin C) 500 mg PO DAILY atorvastatin 20 mg PO DAILY ciprofloxacin HCl 500 mg PO Q12H 7 days levothyroxine 200 mcg PO DAILY montelukast 10 mg PO DAILY multivitamin 1 tab PO DAILY peg-electrolyte soln 420 gram 240 mL PO ONCE PRN 1 day Symbicort 80-4.5 mcg/actuation (budesonide-formoterol) 2 puffs inhalation BID 90 days NS trospium 20 mg PO DAILY 90 days zinc 30 mg PO DAILY Do you need a note to return to daycare/school/sports/work: No HPI HPI copd: Details: Jarad is the 78 years old younger looking gentleman who comes for follow-up for his bronchial asthma/copd . Since about a month his medicine was changed from Symbicort to Advair HFA because of insurance issues. He say is he is having more incidences of wheezing and cough. He thinks that the Advair is just not as effective as his Symbicort and he wants to go back to that. He has no recent respiratory infection, or exposure to any extra amount of dust or smoke. He has past history of smoking and is being followed for a ease small nodule in the left lower lobe. [facility] Medical History LBBB (left bundle branch block) Bronchitis Pulmonary nodule less than 6 mm in diameter with low risk for malignant neoplasm COPD (chronic obstructive pulmonary disease) Pulmonary fibrosis Surgical History Hx of colonoscopy H/O inguinal hernia repair Family History Father Emphysema lung Mother No problems noted. 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 Tobacco Use Status: Former Tobacco user service: Yes Current occupational status: retired Current occupation: works for [employer] Review of Systems Const All systems reviewed & are unremarkable except as noted in HPI and below Eyes Reports no additional complaints ENT Reports nasal congestion (MILD OFF AND ON) Card Reports no additional complaints Resp Reports as per HPI GI Reports no additional complaints Reports no additional complaints Musc Reports no additional complaints Skin/Breast Reports system reviewed and no additional complaints, except as documented Neuro Reports no additional complaints Psych Reports no additional complaints Endo Reports no additional complaints Physical Exam Vital Signs: Last Vital Signs Pulse 64 10/10/24 15:44 BP 140/60 H 10/10/24 15:44 Pulse Ox 95 10/10/24 15:44 Oxygen Delivery Method Room Air 10/10/24 15:44 BMI result Body Mass Index 26.6 Const General: comfortable (But does have frequent cough), no acute distress, alert and awake Orientation/consciousness: patient oriented x3 HEENT Head: Yes normal to inspection General nose exam: No nasal polyps present, No nasal discharge present and Other nasal findings present (Mild nasal congestion) Face and sinus: Yes sinuses nontender Mouth: oropharynx normal Throat: Yes posterior oropharynx normal Eyes General: appearance normal, both eyes and all related structures Neck Neck: Yes normal visual inspection, Yes no lymphadenopathy, Yes trachea midline and Yes no JVD Thyroid: Thyroid normal Chest Chest palpation & inspection: normal inspection of the chest, normal palpation of entire chest wall and no tenderness Resp Other: Percussion note resonant, breath sounds are slightly distant on both sides,, He does have a few expiratory wheezes over the lower lobes, no crepitations... Cardio Palpation: normal PMI Rate: regular rate Rhythm: regular rhythm Heart sounds: no gallops and no murmurs GI Palpation (GI): Soft to palpation, nontender, No hepatosplenomegaly present and no masses Auscultation: normal bowel sounds Back/Spine/Pelvis Thoracic/Lumbar Spine: thoracic and lumbar spine normal to inspection Skin General skin exam: no rashes or lesions noted Neuro General: patient oriented x3 and no focal motor deficits Cranial nerves: Yes CN's II-XII intact bilaterally Extrem General: Yes normal to inspection, Yes no clubbing, cyanosis or edema and Yes no calf tenderness Psych Appearance: grossly normal and well kempt Speech and movement: Normal speech and movement present Office Procedures Spirometry Testing Spirometry Comments: In office spirometry testing completed with results given to Dr Vinson. 54445- Spirometry Results Reviewed Results Reviewed: SPIROMETRY 08/31/2021 TODAY FVC 70 % 71 % FEV1 65 % 61 % FEF 25-75 53 41 % C/W MODERATELY SEVERE OBSTRUCTIVE AIRWAY DISEASE Assessment & Plan Assessment & Plan (1) COPD (chronic obstructive pulmonary disease): Comment: Mild to moderate, chronic, has been well controlled and stable. He hardly needs to use the rescue inhaler. Code(s): J44.9 - Chronic obstructive pulmonary disease, unspecified Category: Medical Plan: WILL GO BACK TO SYMBICORT ( BUDESONIDE 160-4.5 2 PUFFS B.I.D. ) ALBUTEROL HFA 2 PUFFS Q 6 HOURS P.R.N. ALSO CONTINUE TO USE MONTELUKAST 10 MG DAILY (2) Pulmonary nodule less than 6 mm in diameter with low risk for malignant neoplasm: Comment: He has fine nodules, on both sides, less than 5 mm in size. most likely inflammatory in nature. ONE NODULE IN THE LATERAL ASPECT OF LEFT LOWER LOBE SULCUS, IS 5X7 MM . BECAUSE OF HIS PAST HISTORY OF SMOKING THIS MAY NEED TO BE MONITORED, CLOSELY. Code(s): R91.1 - Solitary pulmonary nodule; Z91.89 - Other specified personal risk factors, not elsewhere classified Category: Medical Plan: CT SCAN OF THE CHEST IS ORDERED . (3) Pulmonary fibrosis: Comment: HE HAS MINIMAL FIBROTIC CHANGES IN THE APICAL AREAS AND ALSO AT THE BASES. CLINICALLY NOT SIGNIFICANT, Code(s): J84.10 - Pulmonary fibrosis, unspecified Category: Medical Plan: NO SPECIFIC TREATMENT NEEDED FOR THIS PROBLEM Orders: Orders AMB Spirometry Testing Today J44.9 - Chronic obstructive pulmonary disease, unspecified, J84.10 - Pulmonary fibrosis, unspecified CT chest wo IV con 2 Weeks R91.1 - Solitary pulmonary nodule Medications: New budesonide-formoterol 160-4.5 mcg/actuation 2 puffs inhalation BID 10.2 grams 5RF COPD 30 days Coding Level of Care Code Est Pt Level 3 (70620) Diagnoses COPD (chronic obstructive pulmonary disease) J44.9 Pulmonary nodule less than 6 mm in diameter with low risk for malignant neoplasm R91.1; Z91.89 Pulmonary fibrosis J84.10 CPT Codes Spirometry - CPT: 21451- Spirometry ([id number])
== END 2024-10-10 16:28 | disposition home or self-care (01) ==
PROVIDERS: PCP Internal Medicine; Referring Provider Internal Medicine; Visit Provider Internal Medicine
DX: J44.9 Chronic obstructive pulmonary disease, unspecified (principal); R91.1 Solitary pulmonary nodule; Z91.89 Other specified personal risk factors, not elsewhere classified; J84.10 Pulmonary fibrosis, unspecified
CPT/HCPCS: 94010; 99213

== ENCOUNTER → 2024-10-10 15:38 | Outpatient (BNVA) | payer MEDICARE, OTHER, SELFPAY | PROVIDERS: PCP Internal Medicine; Visit Provider Internal Medicine | DX: J44.9 Chronic obstructive pulmonary disease, unspecified (principal); J84.10 Pulmonary fibrosis, unspecified; R91.1 Solitary pulmonary nodule; Z91.89 Other specified personal risk factors, not elsewhere classified | CPT/HCPCS: 94010; 99212 ==

== ENCOUNTER 2024-12-23 14:25 | Outpatient (AMB) | payer MEDICARE, OTHER, SELFPAY ==
[2024-12-23 14:49] VITALS: BP 130/52; PULSE 67; O2SAT 95; BMI 25.4
--- NOTE | 2024-12-23 14:49 | MHC.OFFVIS ---
Vital Signs 12/23/24 14:49 Height 5 ft 8 in Weight 167 lb BMI 25.4 BP 130/52 L Blood Pressure Location Lt brachial Position Sitting Pulse 67 Pulse Source Pulse Oximeter Pulse Oximetry (%) 95 Oxygen Delivery Method Room Air Intake Visit Reasons: Shortness of breath Intake Note: pt is here for sick visit, and states he is not feeling well, chest tightness, cough non productive, in am some production with yellow phlegm, very hard to get up and out. Slip Cover Operator Required: No Allergies tamsulosin [TAMSULOSIN] Allergy (Unknown, Verified 12/23/24 15:35) HIVES Latex, Natural Rubber Adverse Reaction (Severe, Verified 12/23/24 15:35) hives Medication List - Last Reconciled 12/23/24 by Jose Vinson MD albuterol sulfate 90 mcg/actuation (Ventolin HFA) 2 puffs inhalation QID PRN ascorbic acid (vitamin C) 500 mg PO DAILY atorvastatin 20 mg PO DAILY ciprofloxacin HCl 500 mg PO Q12H 7 days fluticasone furoate-vilanterol 200-25 mcg/dose (Breo Ellipta) 1 inh inhalation DAILY 30 days levothyroxine 200 mcg PO DAILY montelukast 10 mg PO DAILY multivitamin 1 tab PO DAILY peg-electrolyte soln 420 gram 240 mL PO ONCE PRN 1 day Symbicort 80-4.5 mcg/actuation (budesonide-formoterol) 2 puffs inhalation BID 90 days NS trospium 20 mg PO DAILY 90 days zinc 30 mg PO DAILY Do you need a note to return to daycare/school/sports/work: No HPI HPI Shortness of breath: Details: THIS 79 YEARS OLD GENTLEMAN IS HERE FOR FOLLOW-UP FOR HIS COPD. HE COMPLAINS OF INTERMITTENT COUGH WITH SOME TIGHT FEELING IN THE CHEST. MOST OF THE PROBLEM HAS BEEN WITH THE NON AVAILABILITY OF HIS FAVORITE MEDICINE THAT WAS SYMBICORT. IT IS NOT COVERED BY HIS INSURANCE NOW ALTERNATIVE MEDICINE BREO 200-25 WAS ORDERED WHICH HE DID GET, BUT HE HAD TO WAIT MORE THAN 300 DOLLARS AND THAT IS WHAT HE IS TALKING ABOUT MOST OF THE TIME TODAY. HE WANTS TO GET SYMBICORT EVEN THOUGH HE HAS TO GET IT FROM [facility] IN [place]. ALSO HE DOES NOT HAVE ANY RESCUE INHALER ON HAND AT THIS TIME. COMPLAINS OF COUGH BUT NOT ABLE TO BRING UP MUCH MUCUS. HE IS ASKING ABOUT A COUGH MEDICINE. [facility] Medical History LBBB (left bundle branch block) Bronchitis Pulmonary nodule less than 6 mm in diameter with low risk for malignant neoplasm COPD (chronic obstructive pulmonary disease) Pulmonary fibrosis Surgical History Hx of colonoscopy H/O inguinal hernia repair Family History Father Emphysema lung Mother No problems noted. 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 Tobacco Use Status: Former Tobacco user service: Yes Current occupational status: retired Current occupation: works for [employer] Review of Systems Const All systems reviewed & are unremarkable except as noted in HPI and below Eyes Reports no additional complaints ENT Reports nasal congestion (MILD OFF AND ON) Card Reports no additional complaints Resp Reports as per HPI GI Reports no additional complaints Reports no additional complaints Musc Reports no additional complaints Skin/Breast Reports system reviewed and no additional complaints, except as documented Neuro Reports no additional complaints Psych Reports no additional complaints Endo Reports no additional complaints Physical Exam Vital Signs: Last Vital Signs Pulse 67 12/23/24 14:49 BP 130/52 L 12/23/24 14:49 Pulse Ox 95 12/23/24 14:49 Oxygen Delivery Method Room Air 12/23/24 14:49 BMI result Body Mass Index 25.4 Const General: comfortable (But does have frequent cough), no acute distress, alert and awake Orientation/consciousness: patient oriented x3 HEENT Head: Yes normal to inspection General nose exam: No nasal polyps present, No nasal discharge present and Other nasal findings present (Mild nasal congestion) Face and sinus: Yes sinuses nontender Mouth: oropharynx normal Throat: Yes posterior oropharynx normal Eyes General: appearance normal, both eyes and all related structures Neck Neck: Yes normal visual inspection, Yes no lymphadenopathy, Yes trachea midline and Yes no JVD Thyroid: Thyroid normal Chest Chest palpation & inspection: normal inspection of the chest, normal palpation of entire chest wall and no tenderness Resp Other: Percussion note resonant, breath sounds are slightly distant on both sides,, He does have a few expiratory wheezes over the lower lobes, no crepitations... Cardio Palpation: normal PMI Rate: regular rate Rhythm: regular rhythm Heart sounds: no gallops and no murmurs GI Palpation (GI): Soft to palpation, nontender, No hepatosplenomegaly present and no masses Auscultation: normal bowel sounds Back/Spine/Pelvis Thoracic/Lumbar Spine: thoracic and lumbar spine normal to inspection Skin General skin exam: no rashes or lesions noted Neuro General: patient oriented x3 and no focal motor deficits Cranial nerves: Yes CN's II-XII intact bilaterally Extrem General: Yes normal to inspection, Yes no clubbing, cyanosis or edema and Yes no calf tenderness Psych Appearance: grossly normal and well kempt Speech and movement: Normal speech and movement present Assessment & Plan Assessment & Plan (1) COPD (chronic obstructive pulmonary disease): Comment: Mild to moderate, chronic, has been well controlled and stable. There was more discussion about his medication. In place of Symbicort his insurance covers Breo which was ordered. But he was charged more than 300 dollars for Breo and he is asking for. a cheaper brand Explained that this may be part of his [id number] payment that he has to do per year. He still not happy and would like to get Symbicort again but from [place]. Code(s): J44.9 - Chronic obstructive pulmonary disease, unspecified Category: Medical Plan: Advised to take Breo 200-251 inhalation Daily and finish the present supply in the meantime . In the meantime I have given a based script for Symbicort 160-4.5 and fax to the [facility] in [place], and see if he can get on a affordable quinn. He should also have the rescue inhaler, Ventolin 2 puffs Q 6 hours p.r.n.. (2) Pulmonary fibrosis: Comment: HE HAS MINIMAL FIBROTIC CHANGES IN THE APICAL AREAS AND ALSO AT THE BASES. CLINICALLY NOT SIGNIFICANT, Code(s): J84.10 - Pulmonary fibrosis, unspecified Category: Medical Plan: No special treatment for this (3) Pulmonary nodule less than 6 mm in diameter with low risk for malignant neoplasm: Comment: He has fine nodules, on both sides, less than 5 mm in size. most likely inflammatory in nature. ONE NODULE IN THE LATERAL ASPECT OF LEFT LOWER LOBE SULCUS, IS 5X7 MM . BECAUSE OF HIS PAST HISTORY OF SMOKING THIS MAY NEED TO BE MONITORED, CLOSELY. Code(s): R91.1 - Solitary pulmonary nodule; Z91.89 - Other specified personal risk factors, not elsewhere classified Category: Medical Plan: I suggest that we can do a repeat CT scan in about 1 year Coding Level of Care Code Est Pt Level 3 (05442) Diagnoses COPD (chronic obstructive pulmonary disease) J44.9 Pulmonary fibrosis J84.10 Pulmonary nodule less than 6 mm in diameter with low risk for malignant neoplasm R91.1; Z91.89
== END 2024-12-23 15:36 | disposition home or self-care (01) ==
PROVIDERS: PCP Internal Medicine; Visit Provider Internal Medicine
DX: J44.9 Chronic obstructive pulmonary disease, unspecified (principal); J84.10 Pulmonary fibrosis, unspecified; R91.1 Solitary pulmonary nodule; Z91.89 Other specified personal risk factors, not elsewhere classified
CPT/HCPCS: 99213

== ENCOUNTER → 2024-12-23 14:25 | Outpatient (BNVA) | payer MEDICARE, OTHER, SELFPAY | PROVIDERS: PCP Internal Medicine; Visit Provider Internal Medicine | DX: J44.9 Chronic obstructive pulmonary disease, unspecified (principal); J84.10 Pulmonary fibrosis, unspecified; R91.1 Solitary pulmonary nodule; Z91.89 Other specified personal risk factors, not elsewhere classified | CPT/HCPCS: 99212 ==

== ENCOUNTER 2025-01-03 13:10 | Outpatient (REF) | payer MEDICARE, OTHER, SELFPAY | END 2025-01-03 13:11 | disposition home or self-care (01) | LOC: HO.CT 13:10 | PROVIDERS: PCP Internal Medicine; Visit Provider Internal Medicine | DX: R91.1 Solitary pulmonary nodule (principal) | CPT/HCPCS: 71250 ==

== ENCOUNTER → 2025-01-03 13:12 | Outpatient (BNV) | payer MEDICARE, OTHER, SELFPAY | PROVIDERS: PCP Internal Medicine; Visit Provider Specialist | DX: R91.1 Solitary pulmonary nodule (principal) | CPT/HCPCS: 71250 ==

== ENCOUNTER 2025-01-07 11:41 | Emergency (ER) | payer MEDICARE, OTHER, SELFPAY ==
--- NOTE | ~2025-01-07 | CT_ITS ---
EXAMINATION: CT ABDOMEN PELVIS WITHOUT IV CONTRAST HISTORY: Constipation. SBO? COMPARISON: Comparison is made with the prior examination dated 10/02/2020. TECHNIQUE: CT scan of the abdomen and pelvis was performed without contrast using standard departmental protocol. Coronal and sagittal reformatted images were generated and reviewed. Oral contrast material was not administered at the request of the referring physician. This CT exam was performed with one or more of the following dose reduction techniques: automated exposure control, adjustment of the mA and/or kV according to patient size, use of iterative reconstruction technique. DLP: 469 mGy-cm FINDINGS: LOWER CHEST: The visualized lung bases are clear. There is no pleural effusion. CARDIOVASCULATURE: The heart is normal in size. There is no pericardial effusion. LIVER: The liver is normal in size and contour. The liver has an unremarkable unenhanced appearance. GALLBLADDER / BILE DUCTS: There are layering calculi in the gallbladder.. There is no intra or extrahepatic biliary ductal dilatation. SPLEEN: The spleen is normal in size and has an unremarkable unenhanced appearance. PANCREAS: The pancreas has an unremarkable unenhanced appearance. ADRENAL GLANDS: Unremarkable. KIDNEYS/RETROPERITONEUM: There is a punctate nonobstructing calculus at the upper pole of the right kidney and an additional 5 mm nonobstructing calculus at the lower pole. There is a punctate calculus at the upper pole of the left kidney and a 2 mm nonobstructing calculus at the upper pole of the left kidney. There is no hydronephrosis or hydroureter. LYMPH NODES: No retroperitoneal lymphadenopathy is identified in the abdomen or pelvis. VASCULATURE: The abdominal aorta is normal in caliber. MESENTERY/PERITONEUM: No free fluid. No masses. There is no free intraperitoneal gas. STOMACH: The stomach is collapsed, limiting evaluation. SMALL BOWEL: The small bowel is normal in caliber. COLON: There is a large amount of stool in the ascending, transverse, and proximal descending colon. The sigmoid colon is collapsed. APPENDIX: The appendix is not seen, however no inflammatory changes are seen adjacent to the cecum. URINARY BLADDER/PELVIC ORGANS: The urinary bladder is unremarkable. The prostate is normal in size. BONES / SOFT TISSUES: No suspicious bony or soft tissue abnormalities. CT/CT abdomen pelvis wo IV con IMPRESSION: 1. Large amount stool in the ascending, transverse, and proximal descending colon. No evidence of small bowel obstruction. 2. Bilateral nephrolithiasis as described, without evidence of ureteral obstruction. Electronically signed by: Mati Arechiga MD 01/07/2025 01:56 PM EST
[2025-01-07 12:28] VITALS: BP 122/62; PULSE 60; RESP 16; TEMP 36.6; O2SAT 95; BMI 25.1
--- NOTE | 2025-01-07 12:40 | ED_ITS ---
HPI - General Adult General Chief complaint: General Medical Stated complaint: Constipation 5 days Time Seen by Provider: 01/07/25 20:30 Source: patient Mode of arrival: ambulatory Limitations: no limitations History of Present Illness ED Provider: kiera mccray np HPI narrative: Patient is an 79-year-old male presents emergency department for evaluation of constipation. Reports over the past 2 weeks he feels as though he has not been able to have a sufficient bowel movement only small amounts at a time. He states over the past few days he has been using a Fleet's enema daily. Last use this morning. He reports only having the liquid evacuated today without any bowel movement. He feels bloated but denies having abdominal pain. He denies associated nausea or vomiting. He is passing gas and belching. He is able to tolerate oral intake. States he has been drinking plenty of water. Denies using additional [id number] laxatives such as MiraLax, Colace, senna. He admits that this has happened in the past as well. Has a history of a bowel obstruction, and is concerned that this may be the cause constipation. Related Data Home Medications ?Medication ?Instructions ?Recorded ?Confirmed ascorbic acid (vitamin C) 500 mg 500 mg PO DAILY 08/27/20 12/23/24 tablet atorvastatin 20 mg tablet 20 mg PO DAILY 08/27/20 12/23/24 albuterol sulfate 90 mcg/actuation 2 puff inhalation QID PRN 10/02/20 12/23/24 aerosol inhaler (Ventolin HFA) Shortness Of Breath multivitamin 1 tab PO DAILY 10/02/20 12/23/24 levothyroxine 200 mcg tablet 200 mcg PO DAILY 05/21/21 12/23/24 zinc 50 mg tablet 30 mg PO DAILY 10/10/24 12/23/24 Previous Rx's ?Medication ?Instructions ?Recorded peg-electrolyte solution 420 gram 240 ml PO ONCE PRN laxative effect 04/24/24 oral solution 1 day #4,000 mL ciprofloxacin HCl 500 mg tablet 500 mg PO Q12H 7 days #14 tabs 09/04/24 trospium 20 mg tablet 20 mg PO DAILY 90 days #90 tabs 09/04/24 montelukast 10 mg tablet 10 mg PO DAILY #90 tabs 11/18/24 Symbicort 80 mcg-4.5 mcg/actuation 2 puff inhalation BID COPD 90 days 11/28/24 HFA aerosol inhaler #3 ea (budesonide-formoterol) fluticasone furoate 200 1 inh inhalation DAILY 30 days #1 12/18/24 mcg-vilanterol 25 mcg/dose ea inhalation powder (Breo Ellipta) polyethylene glycol 3350 17 17 g PO BID #238 grams 01/07/25 gram/dose oral powder (Miralax) sennosides 8.6 mg capsule (senna) 8.6 mg PO BEDTIME #14 caps 01/07/25 Allergies Allergy/AdvReac Type Severity Reaction Status Date / Time tamsulosin [TAMSULOSIN] Allergy Unknown HIVES Verified 01/07/25 12:30 Latex, Natural Rubber AdvReac Severe hives Verified 01/07/25 12:30 Review of Systems 2 Review of Systems: Yes all other systems are reviewed and are negative [facility] Past Medical History Attestation statement: The following information was validated with the patient. Source: old records reviewed Medical History LBBB (left bundle branch block) Bronchitis Pulmonary nodule less than 6 mm in diameter with low risk for malignant neoplasm COPD (chronic obstructive pulmonary disease) Pulmonary fibrosis Surgical History Hx of colonoscopy H/O inguinal hernia repair Family History Family History Father Emphysema lung Mother No problems noted. Social History 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 Tobacco Use Status: Former Tobacco user Advance Directives: No Advance Directives Information Provided: Yes Do you have a plan to hurt others: No Plan service: Yes Current occupational status: retired Current occupation: works for [employer] Physical Exam ED Vital Signs: Vital Signs - 24 hr 01/07/25 20:08 01/07/25 21:47 01/07/25 21:56 Temperature 98.0 F 98 F 98 F Pulse Rate 63 68 68 Respiratory Rate 18 18 18 Blood Pressure 152/60 H 154/62 H 154/62 H Pulse Oximetry 97 98 98 Oxygen Delivery Method Room Air Room Air Room Air BMI result Body Mass Index 25.1 Appearance: Alert.?Oriented to person, place and time. No acute distress.?Normal affect. Eyes: Pupils equal, round and reactive to light.? ENT: Pharynx normal.?? Neck: Normal inspection.? Neck supple.?? CVS: Heart sounds normal. Normal heart rate and rhythm.? Pulses normal.?? Respiratory: No respiratory distress.? Lung sounds clear to auscultation bilaterally?? Abdomen: Soft and non-tender. Normoactive bowel sounds. No CVAT? Skin: Skin warm and dry.? Normal skin color.?? Extremities: No lower extremity edema.? Neuro: Moves all extremities spontaneously. Sensation intact bilaterally. . Ambulates with normal steady gait. Course Course Course Narrative: RME: 79 yold male with pmh of SBO presents to the ED for 3 weeks of constipation. Patient denies any nausea vomiting or abdominal pain. Negative for any abdominal tenderness or distention. Medical Decision Making Medical Decision Making [facility] Narrative: Patient is an 79-year-old male with past medical history of COPD, pulmonary fibrosis, left bundle-branch block presents emergency department for evaluation constipation as per HPI. His abdominal examination entirely benign. Is overall well-appearing, nontoxic, afebrile. Reviewed work with the obtained prior to my assumption of care CBC is without leukocytosis anemia or thrombocytopenia. No electrolyte derangement. No JUVE. LFTs overall unremarkable. Urinalysis was obtained as without microscopic hematuria or signs of infection. CT of the abdomen and pelvis without acute pathology aside from patient throughout the colon, loose distally the proximal descending colon, no rectal impaction. There is no evidence of bowel obstruction, diverticulitis. Reviewed these findings with the patient, discussed additional OTC remedies to utilize including MiraLax as well as senna. Reviewed worrisome signs and symptoms that would warrant re- evaluation emergency department. Outpatient follow-up with primary care doctor. Differential Diagnosis Differential Diagnoses: The differential diagnosis associated with the presentation includes (See narrative above) Admission/Observation Consideration of admission/observation: Escalation of care including admission/observation considered (See narrative above) Lab Data MDM Lab Attestation statement: I reviewed the patient's lab results. (See narrative above) 01/07/25 13:38 01/07/25 13:38 Labs: Lab Results 01/07/25 01/07/25 Range/Units 13:38 13:53 WBC 5.8 (4.8-10.8) X10*3/uL RBC 5.13 (4.60-5.80) X10*6/uL Hgb 15.3 (14.0-18.0) g/dl Hct 45.0 (42.0-52.0) % MCV 87.7 (80.0-98.0) fL MCH 29.8 (27.0-33.0) pg MCHC 34.0 (31.0-36.0) g/dl RDW 12.0 (11.0-16.0) % Plt Count 250 (160-400) X10*3/uL MPV 8.5 L (9.4-12.4) fL Immature Gran % (Auto) 0.2 (0.0-0.4) % Neut % (Auto) 57.6 (45-73) % Lymph % (Auto) 25.4 (20-40) % [place] % (Auto) 10.4 (2-11) % Eos % (Auto) 5.2 H (0-4) % Baso % (Auto) 1.2 (0-2) % Lymph # (Auto) 1.5 (1.2-4.9) X10*3/uL [place] # (Auto) 0.6 (0.1-1.2) X10*3/uL Eos # (Auto) 0.3 (0.0-0.4) X10*3/uL Baso # (Auto) 0.1 (0.0-0.2) X10*3/uL Abs Immat Gran (auto) 0.01 (0.00-0.03) X10*3/uL Absolute Neuts (auto) 3.3 (2.0-8.3) x10*3/uL Absolute Nucleated RBC 0.000 (0.0-0.012) X10*3/uL Nucleated RBC % (auto) 0.0 (0.0-0.2) /100WBC Sodium 139 (135-145) mmol/L Potassium 4.3 (3.3-5.1) mmol/L Chloride 104 (96-108) mmol/L Carbon Dioxide 29 (22-29) mmol/L Anion Gap 10 L (12-20) BUN 15 (9-16) mg/dL Creatinine 1.01 (0.5-1.4) mg/dL Estim Creat Clear Calc 55.4 Estimated GFR > 60 Random Glucose 93 (60-115) mg/dL Calcium 9.6 (8.4-10.2) mg/dL Total Bilirubin 0.9 (0.0-1.0) mg/dL AST 34 (5-37) U/L ALT 29 (0-40) U/L Alkaline Phosphatase 118 H (39-117) U/L Total Protein 8.6 H (6.5-8.0) g/dL Albumin 4.2 (3.5-5.0) g/dL Lipase 33 (8-78) U/L Urine Color Yellow Urine Appearance Clear Urine pH 6.5 (5.0-9.0) Ur Specific [place] 1.010 (1.005-1.025) Urine Protein Negative (Neg-Trace) mg/dL Urine Glucose (UA) Negative (Negative) mg/dL Urine Ketones Trace (Negative) mg/dL Urine Blood Negative (Negative) Urine Nitrite Negative (Negative) Ur Leukocyte Esterase Negative (Negative) Radiology Impression Discussion of test interpretation with radiology: I have reviewed the radiologist's reading. Radiologist Impression: CT/CT abdomen pelvis wo IV con IMPRESSION: 1. Large amount stool in the ascending, transverse, and proximal descending colon. No evidence of small bowel obstruction. 2. Bilateral nephrolithiasis as described, without evidence of ureteral obstruction. External Record Review External record reviewed: Outpatient record Prescription Management I considered prescription management with: Other (Narrative above) Discharge Plan Discharge Clinical Impression: Constipation Patient Disposition: Home, Self-Care Instructions: Constipation (ED), High Fiber Diet (ED) Prescriptions: New polyethylene glycol 3350 [Miralax] 17 gram/dose powder 17 g PO BID Qty: 238 0RF senna 8.6 mg capsule 8.6 mg PO BEDTIME Qty: 14 0RF No Action montelukast 10 mg tablet 10 mg PO DAILY Qty: 90 0RF budesonide-formoterol [Symbicort] 80-4.5 mcg/actuation HFA aerosol inhaler 2 puff inhalation BID 90 Days Qty: 3 3RF fluticasone furoate-vilanterol [Breo Ellipta] 200-25 mcg/dose blister with device 1 inh inhalation DAILY 30 Days Qty: 1 4RF multivitamin Tablet 1 tab PO DAILY albuterol sulfate [Ventolin HFA] 90 mcg/actuation Hfa Aerosol Inhaler 2 puff INHALATION QID PRN (Reason: Shortness Of Breath) atorvastatin 20 mg tablet 20 mg PO DAILY ascorbic acid (vitamin C) 500 mg tablet 500 mg PO DAILY zinc 50 mg tablet 30 mg PO DAILY levothyroxine 200 mcg tablet 200 mcg PO DAILY peg-electrolyte soln 420 gram recon soln 240 ml PO ONCE PRN (Reason: laxative effect) 1 Days Qty: 4000 0RF Rx Instructions: Start at 6:00pm the evening before procedure, drink one 8oz glass every 15 minutes until complete ciprofloxacin HCl 500 mg tablet 500 mg PO Q12H 7 Days Qty: 14 0RF trospium 20 mg tablet 20 mg PO DAILY 90 Days Qty: 90 1RF Rx Instructions: administer on an empty stomach Referrals: Heath Chapman MD [Primary Care Provider] - Interventions: ED Discharge Assessment Last Done: 01/07/25 21:56 Discharge Date/Time: 01/07/25 21:56 Print Language: Ukrainian
[2025-01-07 13:42] LABS: MANUAL DIFF FLAG NO
[2025-01-07 13:43] LABS: Basophils Absolute Auto 0.1 X10*3/uL (0.0-0.2); Basophils Percent Auto 1.2 % (0-2); Eosinophils Absolute Auto 0.3 X10*3/uL (0.0-0.4); Eosinophils Percent Auto 5.2 % (0-4); Hemoglobin 15.3 g/dl (14.0-18.0); Imm Gran Abs Auto 0.01 X10*3/uL (0.00-0.03); Imm Gran Pct Auto 0.2 % (0.0-0.4); Lymphocytes Absolute Auto 1.5 X10*3/uL (1.2-4.9); Lymphocytes Percent Auto 25.4 % (20-40); Mean Corpuscular Hemoglobin 29.8 pg (27.0-33.0); Mean Corpuscular Volume 87.7 fL (80.0-98.0); Mean Platelet Volume 8.5 fL (9.4-12.4); Monocytes Absolute Auto 0.6 X10*3/uL (0.1-1.2); Monocytes Percent Auto 10.4 % (2-11); Neutrophils Absolute Auto 3.3 x10*3/uL (2.0-8.3); Neutrophils Percent Auto 57.6 % (45-73); Platelet Count 250 X10*3/uL (160-400); Red Blood Count 5.13 X10*6/uL (4.60-5.80); White Blood Count 5.8 X10*3/uL (4.8-10.8)
[2025-01-07 13:58] LABS: Alanine Aminotransferase 29 U/L (0-40); Albumin Level 4.2 g/dL (3.5-5.0); Alkaline Phosphatase 118 U/L (39-117); Anion Gap 10 (12-20); Aspartate Amino Transferase 34 U/L (5-37); Bilirubin Total 0.9 mg/dL (0.0-1.0); Blood Urea Nitrogen 15 mg/dL (9-16); Calcium 9.6 mg/dL (8.4-10.2); Carbon Dioxide 29 mmol/L (22-29); Chloride 104 mmol/L (96-108); Creatinine Clr Calc Pharmacy 55.4; Estimated Glomerular Filt Rate > 60; Glucose Random 93 mg/dL (60-115); Lipase 33 U/L (8-78); Potassium 4.3 mmol/L (3.3-5.1); Sodium 139 mmol/L (135-145); Total Protein 8.6 g/dL (6.5-8.0)
[2025-01-07 14:01] LABS: Appearance Urine Clear; Color Urine Yellow; Glucose Urine UA Negative (Negative); Leukocyte Esterase Urine Negative (Negative); Nitrite Urine Negative (Negative); PH 6.5 (5.0-9.0); Urine Blood Negative (Negative); Urine Ketones Trace mg/dL (Negative); Urine Protein Negative (Neg-Trace)
[2025-01-07 20:08] VITALS: BP 152/60; PULSE 63; RESP 18; TEMP 36.7; O2SAT 97
[2025-01-07 21:47] VITALS: BP 154/62; PULSE 68; RESP 18; TEMP 36.6; O2SAT 98
[2025-01-07 21:56] VITALS: BP 154/62; PULSE 68; RESP 18; TEMP 36.6; O2SAT 98
== END 2025-01-07 21:56 | disposition home or self-care (01) ==
PROVIDERS: Physician Assistant; Emergency Provider Emergency Medicine Emergency Medical Services; PCP Internal Medicine
DX: K59.00 Constipation, unspecified (principal); I44.7 Left bundle-branch block, unspecified; R10.2 Pelvic and perineal pain; Z79.899 Other long term (current) drug therapy; Z87.891 Personal history of nicotine dependence
CPT/HCPCS: 36415; 74176; 80053; 81003; 83690; 85025; 99283; 99284

== ENCOUNTER → 2025-01-07 12:59 | Outpatient (BNV) | payer MEDICARE, OTHER, SELFPAY | PROVIDERS: PCP Internal Medicine; Visit Provider Radiology Diagnostic Radiology | DX: K59.00 Constipation, unspecified (principal) | CPT/HCPCS: 74176 ==

== ENCOUNTER 2025-02-19 13:22 | Outpatient (AMB) | payer MEDICARE, OTHER, SELFPAY ==
--- NOTE | 2025-02-19 13:29 | A.OFFPC_ITS ---
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 Required: No Accompanied by: Self / Same As Patient Allergies tamsulosin [TAMSULOSIN] Allergy (Unknown, Verified 02/19/25 13:30) HIVES Latex, Natural Rubber Adverse Reaction (Severe, Verified 02/19/25 13:30) hives Tobacco use date assessed: 02/19/25 Fall risk assessment: No Falls in past year Last assessed Fall Risk: 02/19/25 Dental Screening Dental Screen Date: 02/19/25 Did you have a dental visit in the last 12 months?: Yes Did you have a dental problem in the last 6 months where you did not have access to dental care?: No PFSH Medical History LBBB (left bundle branch block) Bronchitis Pulmonary nodule less than 6 mm in diameter with low risk for malignant neoplasm COPD (chronic obstructive pulmonary disease) Pulmonary fibrosis Surgical History Hx of colonoscopy H/O inguinal hernia repair Family History Father Emphysema lung Mother No problems noted. 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 Tobacco Use Status: Former Tobacco user service: Yes Current occupational status: retired Current occupation: works for [employer] Cognitive needs: No Hearing needs: No Vision needs: No Questionnaire PHQ-9 Over the last 2 weeks, how often have you been bothered by any of the following problems? 1. Little interest or pleasure in doing things: not at all 2. Feeling down, depressed, or hopeless: not at all 3. Trouble falling or staying asleep, or sleeping too much: not at all 4. Feeling tired or having little energy: not at all 5. Poor appetite or overeating: not at all 6. Feeling bad about yourself - or that you are a failure or have let yourself or your family down: not at all 7. Trouble concentrating on things, such as reading the newspaper or watching television: not at all 8. Moving or speaking so slowly that other people could have noticed. Or the opposite - being so fidgety or restless that you have been moving around a lot more than usual: not at all 9. Thoughts that you would be better off or of hurting yourself in some way: not at all Total score: 0 Source: Developed by Drs. Mati Holland, Claritza Garcia, Jasson Hannon and colleagues, with an educational celso from [employer]. Thrive Questionnaire Date Thrive assessed: 02/19/25 I am a: Patient What is your living situation today?: I have a steady place to live Within the past 12 months, did the food you bought not last and you didn't have the money to get more?: Never true Within the past 12 months, did you worry whether your food would run out before you got money to buy more?: Never true Do you have trouble paying for medicines?: No Do you have trouble getting transportation to medical appointments?: No Do you have trouble paying your heating and electricity bill?: No Do you have trouble taking care of your child, family member or friend?: No Do you have trouble with day-to-day activities such as bathing, preparing meals, shopping, managing finances, etc.?: No Are you currently unemployed and looking for a job?: No Are you interested in more education?: No Please select the resources that you would like help with: None THRIVE Score: 0 AUDIT C Alcohol Use Questionnaire (AUDIT-C) 1. How often do you have a drink containing alcohol?: Monthly or less 2. How many drinks containing alcohol do you have on a typical day when you are drinking?: 1 or 2 3. How often do you have six or more drinks on one occasion?: Never Total Score: 1 JANAE-7 AMB Questionnaire JANAE-7 Date JANAE - 7 assessed: 02/19/25 Feeling nervous, anxious, or on edge: 0 = Not at all Not being able to stop or control worryin = Not at all Worrying too much about different things: 0 = Not at all Trouble relaxin = Not at all Being so restless that it is hard to sit still: 0 = Not at all Becoming easily annoyed or irritable: 0 = Not at all Feeling afraid as if something awful might happen: 0 = Not at all Total JANAE-7 score (0-4 normal; 5-9 mild; 10-14 moderate; 15-21 severe): 0 Source: Developed by Drs. Mati Holland, Claritza Garcia, Jasson Hannon and colleagues, with an educational celso from [employer]. Physical exam (Primary Care) Vital Signs: Last Vital Signs Temp 98.0 F 02/19/25 13:30 Pulse 82 02/19/25 13:30 Resp 14 02/19/25 13:30 BP 130/72 02/19/25 13:30 Pulse Ox 97 02/19/25 13:30 Oxygen Delivery Method Room Air 02/19/25 13:30 BMI result Body Mass Index 25.2 Tobacco/Smoking Status: Tobacco use Status Tobacco use date assessed 02/19/25 02/19/25 13:39 Patient Tobacco Use Status Former Tobacco user 02/19/25 13:39 PHQ-9: PHQ-9 Score PHQ-9: Total score 0 02/19/25 13:39 Thrive Assessment: Date of Thrive Assessment Date Thrive assessed 02/19/25 02/19/25 13:39 Coding Level of Care Code New Pt Level 4 (45810) Complex EM visit Add On G2211 Diagnoses Hoarseness of voice R49.0 Assessment & Plan Assessment & Plan (1) Hoarseness of voice: Code(s): R49.0 - Dysphonia Plan: Needs a direct laryngoscopy. ENT appt will be scheduled Plan History of Present Illness The patient is an 79-year-old male presenting with chronic dysphonia. The symptom of a raspy voice began in June or July of the prior year and has progressively worsened. He has not undergone any evaluation for this condition yet. There is heightened concern due to a similar case of a friend where the voice change was initially due to a vocal cord polyp that later became malignant. The patient has not experienced any significant weight loss and has a remote history of smoking from high school. With no other notable health changes, his focus remains on the voice change. He has been advised blood work is not immediately needed, having been completed in December. 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 - Former Smoker: Smoked briefly during high school, which was over three years ago. - Spouse: His has a doctor due to acid reflux. Review of Systems - General: Denies weight loss. - Respiratory: Reports no chronic cough or shortness of breath. Physical Exam General: Cooperative and healthy appearing Nutritional Appearance: Well nourished Orientation/consciousness: Patient oriented x3 Limitations: No limitations Head: Normal to inspection General: Appearance normal, both eyes and all related structures Neck: Normal visual inspection Chest: Normal palpation of entire chest wall Respiratory: Normal respiratory effort Neurology: Patient oriented x3 Results - Labs: Blood work in December was normal. Plan The patient's main concern of dysphonia will be addressed through a referral to an ortho nurse for a laryngoscopy to rule out vocal cord polyps or other potential causes. Given the patient's normal blood work from December, no further immediate diagnostic labs are necessary. We discussed the importance of follow-up scheduling for the ENT appointment within a week, ensuring prompt evaluation and minimizing any delay in treatment. His schedule preferences have been noted, and once the ENT office determines availability, the relevant timing will be communicated to the patient. Patient was informed and verbally consented to the use of an ambient scribe for clinic note documentation during this visit. Discussion Notes During our discussion, I explained the necessity of evaluating his chronic dysphonia with a laryngoscopy to assess for vocal cord polyps or other potential pathologies. I informed the patient of the risks and benefits of early diagnosis and intervention if necessary. Follow-up scheduling was emphasized as critical, and I instructed him to contact our office if an appointment is not confirmed within one week. We addressed his specific availability to ensure convenience, and I reassured him about discussing the findings post-evaluation. Patient Instructions - Expect a call to schedule a laryngoscopy within the next week. Call us if you don't hear anything. - Follow up with the ENT specialist for the evaluation and treatment of the raspy voice. - Maintain awareness of any additional changes in symptoms or new symptoms and report them during subsequent appointments. - Adhere to your preferred schedule availability of post-3:00 PM for appointments. - Monitor any changes in health and report any concerns.
[2025-02-19 13:30] VITALS: BP 130/72; PULSE 82; RESP 14; TEMP 36.7; O2SAT 97; BMI 25.2
== END 2025-02-19 13:59 | disposition home or self-care (01) ==
LOC: HO.HMCHD 13:22
PROVIDERS: PCP Internal Medicine; Visit Provider Internal Medicine
DX: R49.0 Dysphonia (principal)

== ENCOUNTER → 2025-02-19 13:22 | Outpatient (BNVA) | payer MEDICARE, OTHER, SELFPAY | PROVIDERS: PCP Internal Medicine; Visit Provider Internal Medicine | DX: R49.0 Dysphonia (principal) | CPT/HCPCS: 99202 ==

== ENCOUNTER 2025-02-21 12:15 | Outpatient (REF) | payer MEDICARE, OTHER, SELFPAY ==
[2025-02-21 13:20] LABS: Appearance Urine Clear; Color Urine Yellow; Glucose Urine UA Negative (Negative); Leukocyte Esterase Urine Large (3+) (Negative); Nitrite Urine Negative (Negative); PH 5.5 (5.0-9.0); Specific Gravity - Urine 1.015 (1.005-1.025); UMIC TRIGGER UA YES; Urine Blood Negative (Negative); Urine Ketones Negative (Negative); Urine Protein Negative (Neg-Trace)
[2025-02-21 13:25] LABS: Bacteria Urine 2+ (None Seen); Hyaline Casts Urine 0-2 /LPF (0-2); RBC Urine 0-2 /HPF (0-2); Squamous Epithelial Cell Urine 0-2 /HPF (0-2); WBC Urine >50 /HPF (0-5)
== END 2025-02-21 12:16 | disposition home or self-care (01) ==
LOC: HO.10HDLNP 12:15
PROVIDERS: Visit Provider Urology
DX: R39.9 Unspecified symptoms and signs involving the genitourinary system (principal)
CPT/HCPCS: 81001; 87086; 87088; 87186

== ENCOUNTER 2025-03-05 11:14 | Outpatient (AMB) | payer MEDICARE, OTHER, SELFPAY ==
--- NOTE | 2025-03-05 11:14 | MHC.OFFVIS ---
Intake Visit Reasons: 6m follow up Intake Note: Patient is present for 6M F/U Urology Medication:NONE Antibiotic Allergy:NONE Blood Thinner:NONE Deliverer Outside Required: No Allergies tamsulosin [TAMSULOSIN] Allergy (Unknown, Verified 03/05/25 11:15) HIVES Latex, Natural Rubber Adverse Reaction (Severe, Verified 03/05/25 11:15) hives HPI Comments Details: Izaiah pool is a pleasant male. He is a patient of Dr. Chapman. He is seen for the following urologic condition - BPH - urethral stricture - overactive bladder Telemedicine Evaluation 15 min Consultation Barcoding [place]by Video Six-month follow-up PVR 0 Continues dilatation 2 times per month Prior history UTI - uses on demand ciprofloxacin Ciprofloxacin refilled Continue good response to tropsium Will try low-dose ciprofloxacin day before day of day after dilatation Lower urinary tract symptoms well controlled Urgency and frequency Response to tropsium taken late afternoon Urethral stricture patency maintained by use catheter 2 times per month - preference is 18 [place] coude olive tip - previously had difficulty with straight catheters expected to require catheterization to be maintained for indefinite future will continue to track PSA PSA 05/17 0.2, . 0.4, 12/19 0.8 [facility] Medical History (Updated 03/05/25 @ 11:47 by Keith Leiva MD) Thyroid disease Frequent UTI Elevated cholesterol Murmur LBBB (left bundle branch block) Bronchitis Pulmonary nodule less than 6 mm in diameter with low risk for malignant neoplasm COPD (chronic obstructive pulmonary disease) Pulmonary fibrosis Surgical History Hx of colonoscopy H/O inguinal hernia repair Family History Father Emphysema lung Mother No problems noted. Social History Household Members: Spouse Housing: House Are you a primary healthcare administrator to a significant other at home: No Do you presently have visiting nurse or other home services: No Comment: med surg overflow Patient Tobacco Use Status: Former Tobacco user service: Yes Current occupational status: retired Current occupation: works for [employer] Cognitive needs: No Hearing needs: No Vision needs: No Review of Systems Const All systems reviewed & are unremarkable except as noted in HPI and below Reports no additional complaints Resp Reports no additional complaints GI Reports no additional complaints Reports as per HPI Musc Reports no additional complaints Physical Exam Telemedicine evaluation Appropriate responses Regular breathing rate and rhythm HEENT Head: Yes normal to inspection Ears: hearing grossly normal bilaterally Eyes General: appearance normal, both eyes and all related structures Neck Neck: Yes normal visual inspection Chest Chest palpation & inspection: normal inspection of the chest Resp Effort & Inspection: normal respiratory effort and able to speak in complete sentences Telehealth Telehealth Telehealth Platform: Barcoding Location of provider rendering services: practice address Location of patient: address on file Patient Identification confirmed using: Name, : Yes Telehealth method: video Patient verbally consented to treatment: Yes Patient verbally consented to billing insurance company: Yes Patient informed of any privacy concerns related to visit: Yes Minutes spent on Phone/Video with Pt.: 15 Assessment & Plan Assessment & Plan (1) Lower urinary tract symptoms due to benign prostatic hyperplasia: Code(s): N40.1 - Benign prostatic hyperplasia with lower urinary tract symptoms Category: Medical (2) Urethral stricture: Code(s): N35.919 - Unspecified urethral stricture, male, unspecified site Category: Medical (3) Frequent UTI: Comment: sees Dr. Leiva Code(s): N39.0 - Urinary tract infection, site not specified Category: Medical Plan Refill trips him Will try low-dose ciprofloxacin day before, day of and day after dilatation Medications: New ciprofloxacin HCl Take tablet day before, day of and day after catheterization 250 mg PO DAILY 30 days 30 tabs 0RF nitrofurantoin macrocrystal 100 mg PO BID 7 days 14 caps 0RF N39.0 - Urinary tract infection, site not specified Changed From trospium administer on an empty stomach 20 mg PO QPM To trospium administer on an empty stomach 20 mg PO QPM 90 days 90 tabs 1RF Patient Instructions: This note is constructed using voice recognition software. While every effort has been made to ensure accuracy field instructor errors may have been included. Imaging studies, laboratory and physical exam results were discussed and reviewed in detail. No major barriers to patient understanding were identified. An opportunity to ask questions regarding the treatment plan was provided. All questions were answered. The patient expressed understanding and agreement with the above treatment plan. The patient is aware they should contact our office by phone for worsening of their current condition or the appearance of new urologic symptoms. Compliance is encouraged with any medications and followup testing that is ordered. It is a privilege to participate in the urologic care of your patient. If you have any questions or concerns regarding treatment for the above conditions, or other urologic issues, please do not hesitate to contact me. The office telephone contact is [phone]. Sincerely, Dr Keith Leiva MD, [facility] - Urology Compassionate Specialist Care for the Genitourinary System Coding Level of Care Code Tele Est Pt Level 4 (72018) Complex EM visit Add On G2211 Diagnoses Lower urinary tract symptoms due to benign prostatic hyperplasia N40.1 Urethral stricture N35.919 Frequent UTI N39.0
== END 2025-03-05 13:12 | disposition home or self-care (01) ==
LOC: HO.HUSH 11:14
PROVIDERS: PCP Internal Medicine; Visit Provider Urology
DX: N40.1 Benign prostatic hyperplasia with lower urinary tract symptoms (principal); N35.919 Unspecified urethral stricture, male, unspecified site; N39.0 Urinary tract infection, site not specified
CPT/HCPCS: 99214; G2211

== ENCOUNTER → 2025-03-05 11:14 | Outpatient (BNVA) | payer MEDICARE, OTHER, SELFPAY | PROVIDERS: PCP Internal Medicine; Visit Provider Urology ==

== ENCOUNTER → 2025-03-06 12:46 | Outpatient (REF) | payer MEDICARE, OTHER, SELFPAY ==
--- NOTE | 2025-03-06 12:50 | CA_ITS ---
Transthoracic Echocardiogram Patient (Last, First, Middle): Jarad Bishop A Gender: Male Date of : 1945 Age: 79 Procedure Date: 03/06/2025 Procedure Type: Transthoracic Echocardiogram Location: OP Height: 170.18 cm Weight: 74.84 kg BSA: 1.86 m2 Heart Rate: bpm BP: 138 / 60 mmHg Clinical Care Leader: TO Referring MD: Kush Kan MD Symptoms: I35.0 - Nonrheumatic aortic (valve) stenosis Study Quality: Adequate w contrast Conclusions: - 1. Low normal LV ejection fraction 50-55% with elevated filling pressures 2. Moderate aortic stenosis 3. Upper limits of normal ascending aortic size 4. Mild mitral and aortic regurgitation 5. No gross pericardial effusion Findings Procedure Information Contrast agent, definity, is being given per protocol without apparent complications. Left Ventricle Normal left ventricular cavity size. There is normal left ventricular wall thickness. The left ventricular systolic function is low normal. The visually estimated ejection fraction is between 50-55%. There is paradoxical septal motion consistent with a left bundle branch block. Spectral Doppler is indicative of an impaired relaxation filling pattern. Elevated filling pressures. E/E prime ratio is >15, consistent with elevated filling pressures. Right Ventricle Normal right ventricular cavity size and systolic function. Atria Both atria are normal in size. There is lipomatous hypertrophy of the interatrial septum. There is no evidence of interatrial shunt. Aortic Valve There is moderate calcification of the aortic valve. There is moderate aortic valve stenosis. The peak aortic gradient is 31 mmHg.The mean gradient is 19 mmHg. The aortic valve area is 1.37 cm2. There is mild aortic valve regurgitation. Mitral Valve There is mild anterior and moderate posterior mitral leaflet thickening. There is moderate mitral annular calcification. There is mild mitral valve regurgitation. There is no mitral valve stenosis. Pulmonic Valve The pulmonic valve is likely normal. Tricuspid Valve Normal tricuspid valve structure. Tricuspid regurgitation envelope is inadequate for calculation of right ventricular systolic pressure. Normal right atrial pressure. Great Vessels All visible segments of the aorta are normal in size. The pulmonary artery was not well visualized. Venous The inferior vena cava is normal in size and collapses greater than 50% with inspiration. Pericardium/Pleural There is no evidence of pericardial effusion. Prior Study Comparison Changes noted compared to prior study dated: 07/04/2023. LV systolic function has marginally reduced. Aortic stenosis is of moderate severity Measurements 2D Linear Measurements IVSd: 1.09 0.6-0.9/0.6-1.0 cm LVIDd: 4.87 3.9-5.3/4.2-5.9 cm LVIDd Index: 2.62 2.4-3.2/2.2-3.1 cm/m2 LVIDs: 3.71 2.0-3.6 cm LVPWd: 0.84 0.7-1.1 cm LA Diam: 3.10 2.7-3.8/3.0-4.0 cm LAIDs Index: 1.67 1.5-2.3 cm/m2 LV Mass: 207.18 67-162/88-224 g LV Mass Index: 111.39 43-95/49-115 g/m2 LVOT Diam: 2.30 3.0+(-)1.3 cm 2D Systolic Function EF 4C: 45.80 >55% EF 2C: 58.30 >55% EF BiP: 53.80 >55% Mitral Valve MV VTI: 0.39 MV Pk Tony: 1.15 MV Mn Tony: 0.66 MV Pk Grad: 5.00 MV Mn Grad: 2.00 MV Pk E: 0.81 MV PK A: 1.09 MV Decel Time: 222.00 E/A: 0.70 E'Lateral: 4.90 E'Medial: 5.66 E/E' Med: 14.20 E/E' Lat: 16.40 PHT: 65.00 MVA PHT: 3.38 MVA Continuity: 2.46 Decel Leake: 3.63 Aortic Valve AoV Pk Tony: 2.77 AoV Mn Tony: 2.10 AoV VTI: 0.70 AoV Pk Grad: 31.00 Aov Mn Grad: 19.00 VARUN Cont.VTI: 1.37 LVOT LVOT Pk Tony: 1.03 LVOT Mn Tony: 0.74 LVOT VTI: 0.23 LVOT Pk Grad: 4.00 LVOT Mn Grad: 2.00 LVOT Diam: 2.30 LVOT Area: 4.15 Diastolic Function MV Pk E: 0.81 MV Pk A: 1.09 E/A: 0.70 E'Medial: 5.66 E/E' Med: 14.20 E' Laterial: 4.90 E/E' Lat: 16.40 Right Ventricle TAPSE (mm): 27.30 TVS' Tony: 13.60 Tricuspid Valve RA Press: 3.00 Great Vessels Aorta Sinus of Valsalva: 3.62 2.0-3.5 cm Ao Asc: 3.50 2.1-3.4 cm Updated in Other Vendor System with Status of Final López Burrell MD electronically signed on 03/07/2025 9:53:27 AM with status of Final
== END ==
LOC: HO.CARD 12:46
PROVIDERS: Visit Provider Internal Medicine
DX: I35.0 Nonrheumatic aortic (valve) stenosis (principal)
CPT/HCPCS: 93306; Q9957

== ENCOUNTER → 2025-03-06 12:50 | Outpatient (BNV) | payer MEDICARE, OTHER, SELFPAY | PROVIDERS: Visit Provider Internal Medicine Cardiovascular Disease | DX: I35.2 Nonrheumatic aortic (valve) stenosis with insufficiency (principal); I34.0 Nonrheumatic mitral (valve) insufficiency | CPT/HCPCS: 93306 ==

== ENCOUNTER 2025-03-10 07:44 | Day surgery (SDC) | payer MEDICARE, OTHER, SELFPAY ==
--- NOTE | 2025-02-25 13:41 | HO.ANESPROP2 ---
Documented by User: Kira Morataya NP 02/25/25 13:46 HPI - Anesthesia Eval Consult details Narrative: 79yo M for Colonoscopy Follows [facility] Cardiology for Chronic LBBB, asymptomatic mild aortic stenosis Follows [facility] Pulmo for COPD. Last office visit 11/2024 for sick appointment. Pending ENT eval for hoarse voice PMFSH Active Problems Active Problems: All Active Problems Left knee pain (Acute) History of colon polyps (Acute) LBBB (left bundle branch block) (Acute) Non-rheumatic aortic stenosis (Acute) Bronchitis (Acute) Urethral stricture (Acute) Lower urinary tract symptoms due to benign prostatic hyperplasia (Acute) Pulmonary nodule less than 6 mm in diameter with low risk for malignant neoplasm (Acute) COPD (chronic obstructive pulmonary disease) (Acute) Pulmonary fibrosis (Acute) Past Medical History Medical History Thyroid disease Frequent UTI Elevated cholesterol Murmur LBBB (left bundle branch block) Bronchitis Pulmonary nodule less than 6 mm in diameter with low risk for malignant neoplasm COPD (chronic obstructive pulmonary disease) Pulmonary fibrosis Family History Family History Father Emphysema lung Mother No problems noted. Surgical History Surgical History Hx of colonoscopy H/O inguinal hernia repair Social History Social History Household Members: Spouse Housing: House Are you a primary customer care manager to a significant other at home: No Do you presently have visiting nurse or other home services: No Comment: med surg overflow Patient Tobacco Use Status: Former Tobacco user Use of substances other than those prescribed or required for medical reasons: No Have you been hit, kicked, punched, or otherwise hurt by someone within the past year? If so, by whom?: No Are you DNR?: No Advance Directives: No Advance Directives Information Provided: Yes Advance Directives on File: No service: Yes Current occupational status: retired Current occupation: works for [employer] Cognitive needs: No Hearing needs: No Vision needs: No Meds Allergies Allergy/AdvReac Type Severity Reaction Status Date / Time tamsulosin [TAMSULOSIN] Allergy Unknown HIVES Verified 03/10/25 07:57 Latex, Natural Rubber AdvReac Severe hives Verified 03/10/25 07:57 Home Medications ?Medication ?Instructions ?Recorded ?Confirmed ?Last Taken ?Type atorvastatin 20 mg tablet 20 mg PO DAILY 08/27/20 03/10/25 Unknown History multivitamin 1 tab PO DAILY 10/02/20 03/10/25 Unknown History levothyroxine 200 mcg tablet 200 mcg PO DAILY 05/21/21 03/10/25 Unknown History budesonide-formoterol HFA 80 1 puff inhalation BID COPD 02/25/25 03/10/25 Unknown History mcg-4.5 mcg/actuation aerosol inhaler (Symbicort) clotrimazole-betamethasone 1 1 appl topical BID PRN Skin 02/25/25 03/10/25 Unknown History %-0.05 % topical cream Irritation cranberry extract 157.5 1 cap PO 02/25/25 Unknown History qw-r-vcvnmpv 500 mg capsule ylvwfxamjcz-fratnjfve-mut C-Mn 500 2 cap PO BID 02/25/25 03/10/25 Unknown History mg-400 mg capsule montelukast 10 mg tablet 10 mg PO BEDTIME 02/25/25 03/10/25 Unknown History turmeric 400 mg capsule 400 mg PO DAILY 02/25/25 03/10/25 Unknown History zinc acetate 25 mg (zinc) capsule 30 mg PO DAILY 02/25/25 03/10/25 Unknown History Exam Pertinent Lab Results Pertinent Lab Results: Laboratory Tests 01/07/25 13:38 WBC 5.8 Hgb 15.3 Hct 45.0 Plt Count 250 Sodium 139 Potassium 4.3 Chloride 104 Carbon Dioxide 29 BUN 15 Creatinine 1.01 Narrative Narrative: EKG 01/2024 Details: EKG with sinus rhythm at 69/Min; premature supraventricular complexes; left bundle-branch block. NM cardiolite stress test 02/2024 Impression: 1. Myocardial perfusion imaging study shows likely normal myocardial perfusion 2. Gated LVEF is 55% 3. Transient ischemic dilatation not present EKG is nondiagnostic for ischemia ECHO 2022 Conclusions: - The left ventricular systolic function is normal. The calculated ejection fraction is 58% by biplane method. - There is moderate calcification of the aortic valve. There is mild aortic valve stenosis. Aortic Valve There is moderate calcification of the aortic valve. There is mild aortic valve stenosis. The peak aortic velocity is 2.26 m/s with a calculated peak gradient of 20 mmHg. The mean gradient is 12 mmHg. The aortic valve area is 1.67 cm2. Documented by User: Deborah Marie MD 03/10/25 08:35 [facility] Past Medical History Medical History Thyroid disease Frequent UTI Elevated cholesterol Murmur LBBB (left bundle branch block) Bronchitis Pulmonary nodule less than 6 mm in diameter with low risk for malignant neoplasm COPD (chronic obstructive pulmonary disease) Pulmonary fibrosis Family History Family History Father Emphysema lung Mother No problems noted. Surgical History Surgical History Hx of colonoscopy H/O inguinal hernia repair History of Problems with Anesthesia: No Social History Social History Household Members: Spouse Housing: House Are you a primary customer care manager to a significant other at home: No Do you presently have visiting nurse or other home services: No Comment: med surg overflow Patient Tobacco Use Status: Former Tobacco user Use of substances other than those prescribed or required for medical reasons: No Have you been hit, kicked, punched, or otherwise hurt by someone within the past year? If so, by whom?: No Are you DNR?: No Advance Directives: No Advance Directives Information Provided: Yes Advance Directives on File: No service: Yes Current occupational status: retired Current occupation: works for [employer] Cognitive needs: No Hearing needs: No Vision needs: No Meds Allergies Allergy/AdvReac Type Severity Reaction Status Date / Time tamsulosin [TAMSULOSIN] Allergy Unknown HIVES Verified 03/10/25 07:57 Latex, Natural Rubber AdvReac Severe hives Verified 03/10/25 07:57 Home Medications ?Medication ?Instructions ?Recorded ?Confirmed ?Last Taken ?Type atorvastatin 20 mg tablet 20 mg PO DAILY 08/27/20 03/10/25 Unknown History multivitamin 1 tab PO DAILY 10/02/20 03/10/25 Unknown History levothyroxine 200 mcg tablet 200 mcg PO DAILY 05/21/21 03/10/25 Unknown History budesonide-formoterol HFA 80 1 puff inhalation BID COPD 02/25/25 03/10/25 Unknown History mcg-4.5 mcg/actuation aerosol inhaler (Symbicort) clotrimazole-betamethasone 1 1 appl topical BID PRN Skin 02/25/25 03/10/25 Unknown History %-0.05 % topical cream Irritation cranberry extract 157.5 1 cap PO 02/25/25 Unknown History xw-d-wdkuqjm 500 mg capsule uwgmdlrabbf-nsoanctob-zus C-Mn 500 2 cap PO BID 02/25/25 03/10/25 Unknown History mg-400 mg capsule montelukast 10 mg tablet 10 mg PO BEDTIME 02/25/25 03/10/25 Unknown History turmeric 400 mg capsule 400 mg PO DAILY 02/25/25 03/10/25 Unknown History zinc acetate 25 mg (zinc) capsule 30 mg PO DAILY 02/25/25 03/10/25 Unknown History Exam Airway Mallampati Class: III TM Dist: >3cm Neck ROM: Full Denture: Upper Loose/Missing/Broken Teeth: Yes, Upper and Lower Heart: RRR Lungs: CTA Assessment and Plan Assessment Anesthesia Assessment: Anesthesia Plan Discussed and Chart Reviewed Final Anesthetic Review History of Problems with Anesthesia: No NPO: Yes ASA Class: III Final Preanesthetic Review: Meds/Allgs Chart Reviewed, Consent Obtained/Reviewed and Anes Risks/Benef Reviewed Patient Risk: Intermediate Procedure Risk: Low Anesthetic Plan Anesthetic Plan: MAC: Disposition: Standard PACU
[2025-02-25 13:55] VITALS: BMI 26.9
[2025-02-25 13:58] VITALS: BP 135/62; PULSE 69; RESP 18; O2SAT 95
[2025-03-10 08:07] VITALS: BP 148/59; PULSE 66; RESP 16; TEMP 37.1; O2SAT 96; BMI 26.0
--- NOTE | 2025-03-10 08:12 | MHC.SHP ---
Pre-Procedural Eval Section A - 24 Hr Update-Section A only Date of Service: 03/10/25 The patient is an INPATIENT: No The patient has been examined within 24 hours of the surgical procedure. The History & Physical has been completed within 30 days and I have reviewed it.: No Section B - Complete if H&P > 30 days Chief Complaint: Surveillance for colon polyps Relevant Family History (Specify if Yes): No Relevant Social History: Tobacco Use (Former smoker) Present Medications: see Short Stay Collaborative assessment Medical History: Significant History (LBBB (left bundle branch block) Bronchitis Pulmonary nodule less than 6 mm in diameter with low risk for malignant neoplasm COPD (chronic obstructive pulmonary disease) Pulmonary fibrosis) History of Previous Operations: Relevant previous surgery/procedure and date(s) (Hx of colonoscopy H/O inguinal hernia repair) Allergies: Allergies Allergy/AdvReac Type Severity Reaction Status Date / Time tamsulosin [TAMSULOSIN] Allergy Unknown HIVES Verified 03/10/25 07:57 Latex, Natural Rubber AdvReac Severe hives Verified 03/10/25 07:57 Review of Systems Sugical H&P ROS: Negative: Constitution, Cardiovascular, Respiratory and Gastrointestinal Exam Surgical H&P Exam: Normal: Heart, Normal: Lungs, Normal: Extremities and Normal: Abdomen Plan Diagnosis/Plan: Unchanged I have reviewed the history and physical and performed a pertinent physical examination on my patient. No changes have occurred unless specified. Time Spent With Patient Time: Total time managing care of this patient today ____ minutes.
[2025-03-10] MEDS: Lactated Ringers 1,000 ML 50 ML IVCONT (08:30)
--- NOTE | 2025-03-10 10:28 | HO.OPN-COLON ---
Colonoscopy Operative Note Operative Note Date of Service: 03/10/25 Narrative: COLONOSCOPY TILL CECUM WITH BIOPSIES AND SNARE POLYPECTOMY Pre-op diagnosis: Surveillance for colon polyps. Post-op diagnosis:? Colon polyps, Diverticulosis, hemorrhoids Endoscopist:? Jessica Jimenez MD Anesthesia:?MAC Consent: Indications for the procedure and potential complications of bleeding, perforation, reaction to medications and missed diagnosis were discussed with the patient and informed consent was obtained. Instrument: Olympus CF H 190 L variable stiffness adult colonoscope Monitoring: Vital signs and clinical assessment, intermittent blood pressure monitoring, continuous EKG monitoring, Pulse oximetry and Carbon Dioxide monitoring were done throughout the procedure. Please see anesthesia flowsheet. Colon withdrawl time was 25 minutes. Procedure: The patient was placed in the left lateral decubitis position and pre-procedure medications were administered. After a digital rectal examination of the ano-rectum, the video colonoscope was inserted into the rectum and advanced through the colon to the cecum. The colonoscope was slowly withdrawn in a retrograde panoramic fashion and the colon mucosa was carefully examined including a retroflexed view of the rectum. Findings and interventions are described below. Procedure Difficulty: Colon was long and there was some loop formation. Findings: Terminal Ileum: Not evaluated Cecum: Normal Ascending Colon: A 4-5 mm sessile polyp - removed with a cold snare Transverse Colon: A 3 mm sessile polyp - removed with a cold snare. A 10 mm sessile polyp - removed with a cold snare. Descending Colon: Normal Sigmoid Colon: A 6-7 mm sessile polyp - removed with a cold snare. A 4-5 mm sessile polyp at 30 cms - partially removed and not visualized again due to excessive spasm Moderate diverticulosis Rectum: Normal Ano-rectum: Small internal hemorrhoids Colon preparation: Excellent, after copious irrigation. [place] Bowel Preparation Scale Right colon; 3 Transverse colon: 3 Left colon; 3 (0 = Unprepared colon segment with mucosa not seen due to solid stool that cannot be cleared. 1 = Portion of mucosa of the colon segment seen, but other areas of the colon segment not well seen due to staining, residual stool and/or opaque liquid. 2 = Minor amount of residual staining, small fragments of stool and/or opaque liquid, but mucosa of colon segment seen well. 3 = Entire mucosa of colon segment seen well with no residual staining, small fragments of stool or opaque liquid) Impression and Post Procedure Diagnosis: Colonoscopy Findings: Four polyps were removed A 4-5 mm sessile polyp at 30 cms - partially removed and not visualized again due to excessive spasm Moderate diverticulosis seen in the sigmoid colon small hemorrhoids on retroflexed exam. Plan: I will send a letter with polyp biopsy results. Repeat Colonoscopy in 2-3 years if polyps are adenomatous and 5 years if polyps are hyperplastic (If pt remains in stable health) Above findings were reviewed with the patient and relevant handouts were given and the discharge area.
[2025-03-10 10:30] VITALS: BP 124/58; PULSE 58; RESP 18; TEMP 36.7; O2SAT 98
[2025-03-10 10:45] VITALS: BP 138/57; PULSE 54; RESP 16; TEMP 36.6; O2SAT 97
== END 2025-03-10 11:30 | disposition home or self-care (01) ==
PROVIDERS: PCP Internal Medicine; Visit Provider Internal Medicine Gastroenterology
PROC: 0DJD8ZZ Inspection of Lower Intestinal Tract, Via Natural or Artificial Opening Endoscopic (ICD-10-PCS; CPT 45378; principal; 2025-03-10 09:30)
DX: Z12.11 Encounter for screening for malignant neoplasm of colon (principal); D12.3 Benign neoplasm of transverse colon; D12.5 Benign neoplasm of sigmoid colon; K57.30 Diverticulosis of large intestine without perforation or abscess without bleeding; K64.8 Other hemorrhoids; K56.2 Volvulus; Z86.0100 Personal history of colon polyps, unspecified; I44.7 Left bundle-branch block, unspecified; J44.9 Chronic obstructive pulmonary disease, unspecified; Z87.891 Personal history of nicotine dependence; Z79.02 Long term (current) use of antithrombotics/antiplatelets; Z79.899 Other long term (current) drug therapy
CPT/HCPCS: 45385; 88300; 88305; J2003; J2704

== ENCOUNTER → 2025-03-10 07:44 | Outpatient (BNV) | payer MEDICARE, OTHER, SELFPAY | PROVIDERS: PCP Internal Medicine; Visit Provider Internal Medicine Gastroenterology | DX: Z12.11 Encounter for screening for malignant neoplasm of colon (principal); Z86.0100 Personal history of colon polyps, unspecified; D12.3 Benign neoplasm of transverse colon; K57.30 Diverticulosis of large intestine without perforation or abscess without bleeding | CPT/HCPCS: 45385 ==

== ENCOUNTER 2025-03-17 08:07 | Outpatient (REF) | payer MEDICARE, OTHER, SELFPAY ==
--- NOTE | ~2025-03-17 | XR_ITS ---
CLINICAL HISTORY: R05.9 - Cough, unspecified Two views of the chest. Comparison 02/21/2022. Findings: Heart size is upper limits of normal. The lungs are hyperinflated. No focal consolidation is seen. There are possible minimal pleural effusions. Impression: No consolidation. Possible minimal pleural effusions. There is mild nonspecific interstitial prominence bilaterally. This document has been electronically signed by: Rocael Sanders MD on 03/17/2025 17:18:50
[2025-03-17 11:37] LABS: Influenza A PCR NEGATIVE (Negative); Influenza B PCR NEGATIVE (Negative); Resp Syncy Virus RNA Qual PCR NEGATIVE (Negative); SARS COV2 PCR INHOUSE NEGATIVE (Negative)
== END 2025-03-17 08:08 | disposition home or self-care (01) ==
LOC: HO.HMGCX 08:07
PROVIDERS: PCP Internal Medicine; Visit Provider Physician Assistant
DX: J22 Unspecified acute lower respiratory infection (principal); R05.9 Cough, unspecified; R09.89 Other specified symptoms and signs involving the circulatory and respiratory systems; N39.0 Urinary tract infection, site not specified
CPT/HCPCS: 0241U; 71046; 81003; 99212

== ENCOUNTER 2025-03-17 08:07 | Outpatient (AMB) | payer MEDICARE, OTHER, SELFPAY ==
--- NOTE | 2025-03-17 08:07 | MHC.OFFWIV ---
Intake Vital Signs 03/17/25 08:10 Height 5 ft 7 in Weight 176 lb BMI 27.6 BP 141/80 H Blood Pressure Location Lt brachial Position Sitting Pulse 87 Pulse Source Pulse Oximeter Temp 99.3 F Temp Source Oral Pulse Oximetry (%) 95 Oxygen Delivery Method Room Air Intake Visit Reasons: EP Fever, tightness in chest, colonoscopy 1wk ago Intake Note: Patient here for fever, chest tightness. pt has a hx of mild COPD Patient Tobacco Use Status: Former Tobacco user Allergies tamsulosin [TAMSULOSIN] Allergy (Unknown, Verified 03/17/25 08:11) HIVES Latex, Natural Rubber Adverse Reaction (Severe, Verified 03/17/25 08:11) hives Do you need a note to return to daycare/school/sports/work: No HPI HPI Comments History of Present Illness Details History - The patient is an 79-year-old male with past med hx of COPD, pulm fibrosis, pulm nodules, hypothryoid and frequent UTI's presenting with fever, shortness of breath with exertion, and chest tightness. - The fever began yesterday, with the most recent episode recorded at 101?F, manageable with tylenol - Shortness of breath became notable with exertion, revealed during the walk from his vehicle to the clinic. - Chest tightness is noted but not related to any recent activity or strain. - The patient's past medical history includes Chronic Obstructive Pulmonary Disease (COPD) managed with daily inhaler use, lacking a rescue inhaler at present. - Denies abdominal pain or abd pn that radiates to his back, arm pain, neck pain, shoulder pain, dizzyiness, chest pain,nausea, vomiting, diarrhea, cough, or nasal congestion. - He tells me he had a colonoscopy a week ago, reports his bowels are back to normal, denies any blood or black stools. - he tells me he does self catheterization every other week because he has a history of frequent UTIs. He does have an antibiotic he takes the day before, the day of and the day after. Today would be the day after but he has not taken the antibiotic yet. He denies any urinary symptoms Physical Exam General: Cooperative, healthy appearing, comfortable and no acute distress Orientation/consciousness: Patient oriented x3 Limitations: No limitations Head: Normal to inspection Ears: Hearing grossly normal bilaterally, external ears normal and TM's normal bilaterally Nose: Normal external nose present, Normal nares present and nasal congestion Face and sinus: Normal facial exam and Yes sinuses nontender Mouth: Normal oral and palatal mucosa present and moist mucous membranes Throat: Yes tonsils normal, Yes uvula midline. Posterior oropharynx erythema Eyes: Appearance normal, both eyes and all related structures Neck: Normal visual inspection Respiratory: slight exp wheeze. Normal respiratory effort, able to speak in complete sentences, Actively coughing, no respiratory distress, not tachypneic, no tripod positioning and no use of accessory muscles Cardiovascular: Regular rate and rhythm. Normal S1 and S2 Skin: No rashes or lesions noted Neuro: Patient oriented x3 Extremities: Normal to inspection and Yes no clubbing, cyanosis or edema PFSH Medical History Thyroid disease Frequent UTI Elevated cholesterol Murmur LBBB (left bundle branch block) Bronchitis Pulmonary nodule less than 6 mm in diameter with low risk for malignant neoplasm COPD (chronic obstructive pulmonary disease) Pulmonary fibrosis Surgical History Hx of colonoscopy H/O inguinal hernia repair Family History Father Emphysema lung Mother No problems noted. 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 overflow Patient Tobacco Use Status: Former Tobacco user service: Yes Current occupational status: retired Current occupation: works for [employer] Cognitive needs: No Hearing needs: No Vision needs: No Review of Systems Const All systems reviewed & are unremarkable except as noted in HPI and below Physical Exam Vital Signs: Last Vital Signs Temp 99.3 F 03/17/25 08:10 Pulse 87 03/17/25 08:10 BP 141/80 H 03/17/25 08:10 Pulse Ox 95 03/17/25 08:10 Oxygen Delivery Method Room Air 03/17/25 08:10 BMI result Body Mass Index 27.6 Results AMB Urinalysis, Automated UA Leukoctes 0 Thompson/uL Last Edit by VARSHA Mon on 03/17/25 08:55 UA Nitrite Negative Last Edit by Karla Roberts [facility] on 03/17/25 08:55 UA Urobilinogen 0.2 mg/dL Last Edit by Karla Roberts [facility] on 03/17/25 08:55 UA Protein 0 mg/dL Last Edit by Karla Roberts [facility] on 03/17/25 08:55 UA pH 6.0 Last Edit by Karla Roberts [facility] on 03/17/25 08:55 UA Blood 10 Bradley/uL Last Edit by JuanisCarlos Roberts [facility] on 03/17/25 08:55 UA Specific [place] 1.015 Last Edit by Karla Roberts [facility] on 03/17/25 08:55 UA Ketone Negative Last Edit by Karla Roberts [facility] on 03/17/25 08:55 UA Bilirubin 0 mg/dL Last Edit by Karla Roberts [facility] on 03/17/25 08:55 UA Glucose 0 mg/dL Last Edit by Karla Roberts [facility] on 03/17/25 08:55 Results Reviewed Results Reviewed: Laboratory Last Values Urine pH (Auto) 6.0 03/17/25 08:54 Specific [place] (Auto) 1.015 03/17/25 08:54 Urine Protein (Auto) 0 mg/dL 03/17/25 08:54 Glucose (UA)(Auto) 0 mg/dL 03/17/25 08:54 Urine Ketones (Auto) Negative 03/17/25 08:54 Urine Blood (Auto) 10 Bradley/uL 03/17/25 08:54 Urine Nitrite (Auto) Negative 03/17/25 08:54 Urine Bilirubin (Auto) 0 mg/dL 03/17/25 08:54 Urine Urobilinogen (Auto) 0.2 mg/dL 03/17/25 08:54 Leukocyte Esterase (Auto) 0 Thompson/uL 03/17/25 08:54 Assessment & Plan Assessment & Plan (1) Lower respiratory infection (e.g., bronchitis, pneumonia, pneumonitis, pulmonitis): Code(s): J22 - Unspecified acute lower respiratory infection Plan: Will get UA to be thorough as pt self caths. UA neg for infection but positive for blood. Will send culture. O2 sat 95% on RA, pt well appearing and PE remarkable for slight exp wheeze. Testing for flu, COVID-19, and RSV is ordered to determine the cause of symptoms and assess respiratory involvement. A chest X-ray will be conducted to evaluate for underlying conditions such as pneumonia. A prescription for a rescue inhaler and a five-day course of prednisone 40 mg daily is provided to address respiratory difficulties and inflammation. Medications will be accessible at the pharmacy. The patient is instructed to monitor symptoms, particularly fever and shortness of breath, and to seek emergency care if conditions escalate. Monitoring will guide the continuation of care, especially concerning the newly prescribed therapies. The patient should follow up with their primary care provider for comprehensive management of COPD and ongoing healthcare needs. Patient was informed and verbally consented to the use of an ambient scribe for clinic note documentation during this visit Orders: Orders SARS-CoV2/FLU/RSV Today R09.89 - Other specified symptoms and signs involving the circulatory and respiratory systems XR chest 2V Today R05.9 - Cough, unspecified AMB Urinalysis Automated Today Z13.9 - Encounter for screening, unspecified Urine Culture Today N39.0 - Urinary tract infection, site not specified Medications: New prednisone 40 mg (2 x 20 mg) PO QAM 10 tabs 0RF albuterol sulfate 90 mcg/actuation 2 puffs inhalation Q6H PRN 8.5 grams 0RF shortness of breath or wheezing or cough Coding Level of Care Code Est Pt Level 4 (10550) Diagnoses Lower respiratory infection (e.g., bronchitis, pneumonia, pneumonitis, pulmonitis) J22
[2025-03-17 08:10] VITALS: BP 141/80; PULSE 87; TEMP 37.4; O2SAT 95; BMI 27.6
== END 2025-03-17 09:06 | disposition home or self-care (01) ==
PROVIDERS: PCP Internal Medicine; Visit Provider Physician Assistant
DX: J22 Unspecified acute lower respiratory infection (principal); Z13.9 Encounter for screening, unspecified

== ENCOUNTER → 2025-03-17 08:51 | Outpatient (BNV) | payer MEDICARE, OTHER, SELFPAY | PROVIDERS: PCP Internal Medicine; Visit Provider Radiology Diagnostic Radiology | DX: R05.9 Cough, unspecified (principal) | CPT/HCPCS: 71046 ==

== ENCOUNTER 2025-03-17 08:57 | Outpatient (REF) | payer MEDICARE, OTHER, SELFPAY | END 2025-03-17 08:58 | disposition home or self-care (01) | LOC: HO.LAB 08:57 | PROVIDERS: Visit Provider Physician Assistant | DX: Z13.89 Encounter for screening for other disorder (principal) ==

== ENCOUNTER 2025-03-25 13:31 | Outpatient (AMB) | payer MEDICARE, OTHER, SELFPAY ==
--- NOTE | 2025-03-25 13:36 | MHC.OFFVIS ---
Vital Signs 03/25/25 13:37 Height 5 ft 7 in Weight 174 lb BMI 27.2 BP 124/50 L Blood Pressure Location Lt brachial Position Sitting Pulse 71 Pulse Source Pulse Oximeter Pulse Oximetry (%) 94 Oxygen Delivery Method Room Air Intake Visit Reasons: Shortness of breath Intake Note: pt is here for follow up, please look at [facility] inhaler, generic symbicort, does have an issue to talk about Cellophane Tester Required: No Allergies tamsulosin [TAMSULOSIN] Allergy (Unknown, Verified 03/25/25 13:52) HIVES Latex, Natural Rubber Adverse Reaction (Severe, Verified 03/25/25 13:52) hives Medication List - Last Reconciled 03/25/25 by Jose Vinson MD albuterol sulfate 90 mcg/actuation 2 puffs inhalation Q6H PRN amoxicillin-pot clavulanate 875-125 mg 1 tab PO Q12H atorvastatin 20 mg PO DAILY azithromycin For 250 mg dose pack: take 500 mg today (day 1), then 250 mg for 4 days (days 2-5) PO budesonide-formoterol 80-4.5 mcg/actuation (Symbicort) 1 puff inhalation BID clotrimazole-betamethasone 1-0.05 % 1 appl topical BID PRN cranberry pkszxdc-x-yaznhjm 157.5-500 mg 1 cap PO ilfqiokhcel-ikijyxmiq-oda C-Mn 500-400 mg 2 caps PO BID levothyroxine 200 mcg PO DAILY montelukast 10 mg PO BEDTIME multivitamin 1 tab PO DAILY prednisone 40 mg (2 x 20 mg) PO QAM trospium 20 mg PO QPM 90 days turmeric 400 mg PO DAILY zinc acetate 30 mg PO DAILY Do you need a note to return to daycare/school/sports/work: No HPI HPI Shortness of breath: Details: Jarad is 79 years old younger looking male, who works at [employer], Comes after 4 months for follow-up. In the interim. He has gotten his favorite medicine generic Symbicort from [facility] and is doing well. About 2 weeks ago he did have an acute exacerbation and was seen in the urgent care clinic, he was told that he may have a touch of pneumonia so treated with Augmentin, Z-Reymundo and prednisone. He has fully recovered and is back to baseline. Has very little cough, only mild shortness of breath on heavy exertion. No wheezes. We had a detailed discussion about his medicine from [facility]. [facility] Medical History Thyroid disease Frequent UTI Elevated cholesterol Murmur LBBB (left bundle branch block) Bronchitis Pulmonary nodule less than 6 mm in diameter with low risk for malignant neoplasm COPD (chronic obstructive pulmonary disease) Pulmonary fibrosis Surgical History Hx of colonoscopy (~03/10/25) H/O inguinal hernia repair Family History Father Emphysema lung Mother No problems noted. 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 overflow Patient Tobacco Use Status: Former Tobacco user service: Yes Current occupational status: retired Current occupation: works for [employer] Cognitive needs: No Hearing needs: No Vision needs: No Review of Systems Const All systems reviewed & are unremarkable except as noted in HPI and below Eyes Reports no additional complaints ENT Reports nasal congestion (MILD OFF AND ON) Card Reports no additional complaints Resp Reports as per HPI GI Reports no additional complaints Reports no additional complaints Musc Reports no additional complaints Skin/Breast Reports system reviewed and no additional complaints, except as documented Neuro Reports no additional complaints Psych Reports no additional complaints Endo Reports no additional complaints Physical Exam Const General: comfortable (But does have frequent cough), no acute distress, alert and awake Orientation/consciousness: patient oriented x3 HEENT Head: Yes normal to inspection General nose exam: No nasal polyps present, No nasal discharge present and Other nasal findings present (Mild nasal congestion) Face and sinus: Yes sinuses nontender Mouth: oropharynx normal Throat: Yes posterior oropharynx normal Eyes General: appearance normal, both eyes and all related structures Neck Neck: Yes normal visual inspection, Yes no lymphadenopathy, Yes trachea midline and Yes no JVD Thyroid: Thyroid normal Chest Chest palpation & inspection: normal inspection of the chest, normal palpation of entire chest wall and no tenderness Resp Other: Percussion note resonant, breath sounds are slightly distant on both sides,, He does have a few expiratory wheezes over the lower lobes, no crepitations... Cardio Palpation: normal PMI Rate: regular rate Rhythm: regular rhythm Heart sounds: no gallops and no murmurs GI Palpation (GI): Soft to palpation, nontender, No hepatosplenomegaly present and no masses Auscultation: normal bowel sounds Back/Spine/Pelvis Thoracic/Lumbar Spine: thoracic and lumbar spine normal to inspection Skin General skin exam: no rashes or lesions noted Neuro General: patient oriented x3 and no focal motor deficits Cranial nerves: Yes CN's II-XII intact bilaterally Extrem General: Yes normal to inspection, Yes no clubbing, cyanosis or edema and Yes no calf tenderness Psych Appearance: grossly normal and well kempt Speech and movement: Normal speech and movement present Assessment & Plan Assessment & Plan (1) COPD (chronic obstructive pulmonary disease): Comment: Mild to moderate, chronic, has been well controlled and stable. There was more discussion about his medication. He is using medicine from [facility], ( budesonide 200 mcg - Formoterol 6 mcg. ) 2 puffs b.i.d.. And albuterol 2 puffs Q 6 hours only p.r.n. Recently treated with a course of prednisone for 5 days, , Z-Reymundo, and Augmentin for 1 week. Now okay Code(s): J44.9 - Chronic obstructive pulmonary disease, unspecified Category: Medical Plan: Advise to use budesonide-formoterol 200-6 1 puff b.i.d., and may increase to 2 puffs b.i.d. if symptoms any worse. Use albuterol HFA 2 puffs Q 6 hours p.r.n.. If any wheezing Continue montelukast 10 mg daily (2) Pulmonary fibrosis: Comment: HE HAS MINIMAL FIBROTIC CHANGES IN THE APICAL AREAS AND ALSO AT THE BASES. CLINICALLY NOT SIGNIFICANT, Code(s): J84.10 - Pulmonary fibrosis, unspecified Category: Medical Plan: No need for active follow-up (3) Pulmonary nodule less than 6 mm in diameter with low risk for malignant neoplasm: Comment: He has fine nodules, on both sides, less than 5 mm in size. most likely inflammatory in nature. ONE NODULE IN THE LATERAL ASPECT OF LEFT LOWER LOBE SULCUS, IS 5X7 MM . BECAUSE OF HIS PAST HISTORY OF SMOKING THIS MAY NEED TO BE MONITORED, CLOSELY. Code(s): R91.1 - Solitary pulmonary nodule; Z91.89 - Other specified personal risk factors, not elsewhere classified Category: Medical Plan: Explained to the patient that he would need CT scan in 1 year from the last one [facility] [address] scan at that time. Coding Level of Care Code Est Pt Level 3 (64550) Diagnoses COPD (chronic obstructive pulmonary disease) J44.9 Pulmonary fibrosis J84.10 Pulmonary nodule less than 6 mm in diameter with low risk for malignant neoplasm R91.1; Z91.89
[2025-03-25 13:37] VITALS: BP 124/50; PULSE 71; O2SAT 94; BMI 27.2
== END 2025-03-25 13:54 | disposition home or self-care (01) ==
LOC: HO.HPS 13:32
PROVIDERS: PCP Internal Medicine; Visit Provider Internal Medicine
DX: J44.9 Chronic obstructive pulmonary disease, unspecified (principal); J84.10 Pulmonary fibrosis, unspecified; R91.1 Solitary pulmonary nodule; Z91.89 Other specified personal risk factors, not elsewhere classified
CPT/HCPCS: 99213

== ENCOUNTER → 2025-03-25 13:31 | Outpatient (BNVA) | payer MEDICARE, OTHER, SELFPAY | PROVIDERS: PCP Internal Medicine; Visit Provider Internal Medicine | DX: J44.9 Chronic obstructive pulmonary disease, unspecified (principal); J84.10 Pulmonary fibrosis, unspecified; R91.1 Solitary pulmonary nodule; Z91.89 Other specified personal risk factors, not elsewhere classified | CPT/HCPCS: 99212 ==

== ENCOUNTER 2025-03-26 13:37 | Outpatient (AMB) | payer MEDICARE, OTHER, SELFPAY ==
--- NOTE | 2025-03-26 13:42 | MHC.OFFVIS ---
Vital Signs 03/26/25 13:43 Height 5 ft 7 in Weight 166 lb 8.081 oz BMI 26.1 BP 120/68 Blood Pressure Location Lt brachial Position Sitting Pulse 71 Pulse Source Pulse Oximeter Intake Visit Reasons: 1 year fu after echo Allergies tamsulosin [TAMSULOSIN] Allergy (Unknown, Verified 03/25/25 13:52) HIVES Latex, Natural Rubber Adverse Reaction (Severe, Verified 03/25/25 13:52) hives Medication List - Last Reconciled 03/26/25 by Kush Kan MD albuterol sulfate 90 mcg/actuation 2 puffs inhalation Q6H PRN atorvastatin 20 mg PO DAILY budesonide-formoterol 80-4.5 mcg/actuation (Symbicort) 1 puff inhalation BID cranberry gjdiwin-u-irbduvh 157.5-500 mg 1 cap PO oaydorlvznw-emiagxzoj-cuk C-Mn 500-400 mg 2 caps PO BID levothyroxine 200 mcg PO DAILY montelukast 10 mg PO BEDTIME multivitamin 1 tab PO DAILY trospium 20 mg PO QPM 90 days turmeric 400 mg PO DAILY zinc acetate 30 mg PO DAILY HPI Comments Details: Jarad returns for follow-up. In the past, he was seen regarding aortic stenosis. He also has a chronic left bundle-branch block. Overall, he states he is okay for the most part. Recovering from pneumonia. He has had some nonspecific dizziness but nothing clear-cut cardiac sounding. 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 [facility] Medical History Thyroid disease Frequent UTI Elevated cholesterol Murmur LBBB (left bundle branch block) Bronchitis Pulmonary nodule less than 6 mm in diameter with low risk for malignant neoplasm COPD (chronic obstructive pulmonary disease) Pulmonary fibrosis Surgical History Hx of colonoscopy (~03/10/25) H/O inguinal hernia repair Family History Father Emphysema lung Mother No problems noted. Social History Household Members: Spouse Housing: House Are you a primary medicare compliance auditor to a significant other at home: No Do you presently have visiting nurse or other home services: No Comment: med surg overflow Patient Tobacco Use Status: Former Tobacco user service: Yes Current occupational status: retired Current occupation: works for [employer] Cognitive needs: No Hearing needs: No Vision needs: No Review of Systems Const Denies weakness ENT Denies dizziness Card Denies chest pain, Denies chest pain with activity, Denies syncope, Denies rapid heart rate, Denies pedal edema, Denies edema, Denies leg edema, Denies lightheadedness, Denies palpitations, Denies dyspnea, Denies dyspnea on exertion and Denies orthopnea Resp Denies cough, Denies dyspnea and Denies dyspnea on exertion GI Denies hematochezia and Denies change in stool character Musc Denies abnormal gait, Denies muscle cramps, Denies muscle weakness, Denies numbness, Denies radiating pain into limb and Denies tingling Neuro Denies Abnormal speech present, Denies abnormal gait, Denies dizziness, Denies syncope, Denies numbness, Denies tingling and Denies weakness Endo Denies palpitations Physical Exam Vital Signs: Last Vital Signs Pulse 71 03/26/25 13:43 BP 120/68 03/26/25 13:43 BMI result Body Mass Index 26.1 Const General: comfortable and no acute distress Orientation/consciousness: patient oriented x3 HEENT Other: Unremarkable Head: Yes normal to inspection Neck Neck: Yes normal visual inspection Chest Chest palpation & inspection: normal inspection of the chest Resp Auscultation: clear to auscultation bilaterally Cardio Palpation: normal PMI Heart sounds: S1 normal heart sound present, S2 normal heart sound present, no gallops, Murmur heart sound present systolic II/ and at the right sternal border and no rubs GI Palpation (GI): Soft to palpation Back/Spine/Pelvis Other: unremarkable Skin General skin exam: no rashes or lesions noted Neuro General: patient oriented x3 Speech: No Abnormal speech present Extrem General: Yes normal to inspection Psych Mental Status: mental status grossly normal Assessment & Plan Assessment & Plan (1) Non-rheumatic aortic stenosis: Code(s): I35.0 - Nonrheumatic aortic (valve) stenosis Category: Medical Plan: In the recent echocardiogram, LVEF is 50-55%. Mean gradient across aortic valve was 19 mm Hg with a calculated valve area of 1.37 cm2. Mild aortic regurgitation. Findings discussed with patient. At this time, no specific interventions. We will recheck echocardiogram in one year. Symptoms of progressive aortic stenosis were discussed and he understands that. (2) LBBB (left bundle branch block): Code(s): I44.7 - Left bundle-branch block, unspecified Category: Medical Plan: EKG shows left bundle-branch block pattern. Going back 2009, he still had the same finding. Hence seems to be chronic. Myocardial perfusion imaging study from last year showed likely normal perfusion. Plan Discussion Notes I discussed the current status and management plans for the patient's aortic valve stenosis, highlighting the moderate nature of the condition. Transcatheter replacement remains premature until symptoms, such as syncope or chest pain, become more apparent and the stenosis worsens significantly. We covered possible interventions, emphasizing the benefits and expected timing for TAVR in such cases. We contemplated future follow-ups, stressing timely communication should symptomatology evolve. Patient was informed and verbally consented to the use of an ambient scribe for clinic note documentation during this visit. Orders: Orders CA echo transthoracic complete 1 Year I35.0 - Nonrheumatic aortic (valve) stenosis Patient Instructions: - Continue monitoring symptoms closely, including dizziness, chest pain, and shortness of breath. - Seek immediate care if you experience severe dizziness, fainting, or chest pains. - Maintain open communication regarding any new or worsening symptoms. - Limit heavy exertion, especially on inclines if it causes significant discomfort. - Follow up for regular cardiovascular evaluations to monitor aortic valve status. Coding Level of Care Code Est Pt Level 4 (30319) Complex EM visit Add On G2211 Diagnoses Non-rheumatic aortic stenosis I35.0 LBBB (left bundle branch block) I44.7
[2025-03-26 13:43] VITALS: BP 120/68; PULSE 71; BMI 26.1
== END 2025-03-26 13:55 | disposition home or self-care (01) ==
LOC: HO.HCS 13:38
PROVIDERS: PCP Internal Medicine; Visit Provider Internal Medicine
DX: I35.0 Nonrheumatic aortic (valve) stenosis (principal); I44.7 Left bundle-branch block, unspecified
CPT/HCPCS: 99214; G2211

== ENCOUNTER → 2025-03-26 13:37 | Outpatient (BNVA) | payer MEDICARE, OTHER, SELFPAY | PROVIDERS: PCP Internal Medicine; Visit Provider Internal Medicine | DX: I35.0 Nonrheumatic aortic (valve) stenosis (principal); I44.7 Left bundle-branch block, unspecified | CPT/HCPCS: 99212 ==

== ENCOUNTER 2025-04-29 09:30 | Outpatient (REF) | payer MEDICARE, OTHER, SELFPAY ==
--- NOTE | ~2025-04-29 | XR_ITS ---
EXAMINATION: XR CHEST CLINICAL INFORMATION: R05.9 - Cough, unspecified COMPARISON: February 21, 2022 TECHNIQUE: 2 views of the chest were obtained. FINDINGS: Lungs are less well-aerated than on the prior. There is increased density in right middle lobe slightly obscuring the right heart margin, increased since the prior. Focal density in the left base persists. The left cardiac apex appears similar to the prior examination. Lungs are clear otherwise. Heart size is within normal limits. Vascular calcification is present in the aortic knob. Syndesmophytes are present on the anterior margin of the thoracic spine. There is mild loss of disc height in the mid to upper thoracic spine. XR/XR chest 2V IMPRESSION: Increasing density in the right middle lobe could represent atelectasis and/or pneumonia. There are syndesmophytes along the anterior thoracic spine raising question of ankylosing spondylitis. Differential considerations include diffuse idiopathic skeletal hyperostosis (DISH). Electronically signed by: Alexandru Sen MD 04/29/2025 10:34 AM EDT
== END 2025-04-29 09:31 | disposition home or self-care (01) ==
LOC: HO.HMGCX 09:30
PROVIDERS: PCP Internal Medicine; Visit Provider Physician Assistant Medical
DX: R05.9 Cough, unspecified (principal)
CPT/HCPCS: 71046; 99212

== ENCOUNTER 2025-04-29 09:30 | Outpatient (AMB) | payer MEDICARE, OTHER, SELFPAY ==
--- NOTE | 2025-04-29 09:40 | MHC.OFFWIV ---
Intake Vital Signs 04/29/25 09:41 Weight 178 lb BP 120/72 Blood Pressure Location Rt brachial Position Sitting Pulse 77 Pulse Source Pulse Oximeter Temp 99.1 F Temp Source Oral Pulse Oximetry (%) 97 Oxygen Delivery Method Room Air Intake Visit Reasons: EP Cough, fever Intake Note: Patient here for cough and fever and having issues catching breathe. Patient Tobacco Use Status: Former Tobacco user Allergies tamsulosin [TAMSULOSIN] Allergy (Unknown, Verified 04/29/25 09:41) HIVES Latex, Natural Rubber Adverse Reaction (Severe, Verified 04/29/25 09:41) hives Do you need a note to return to daycare/school/sports/work: No HPI HPI Comments History of Present Illness Details History of Present Illness The patient is an 79-year-old male presenting with a cough and fever. He reports that the fever started on Monday evening, accompanied by shivering, with an initial temperature reading of 102?F. The fever recurred the following evening and continued with variations, including a morning temperature of 101?F at the day of presentation. He has a history of pneumonia two months ago for which a Z-Reymundo was prescribed successfully. He denies shortness of breath, abdominal pain, nausea, vomiting, diarrhea, ear pain, headache, sore throat. The patient is able to use his inhaler effectively to hold his breath for up to 20 seconds, though recently it reduced to 10-15 seconds. He states that he has no sick contacts. He denies smoking. He denies weight loss or night sweats. He denies recent travel. Physical Exam General: Cooperative, healthy appearing, comfortable, no acute distress and well developed Orientation: Patient oriented x3 Ears: Hearing grossly normal bilaterally. TMs are normal and not bulging. Nose: Normal external nose present Neck: Normal visual inspection and Yes full ROM Respiratory: Normal respiratory effort and able to speak in complete sentences. Clear to auscultation bilaterally Cardiovascular: Regular rate and rhythm. Normal S1 and S2 GI: Normal to inspection. Soft to palpation and nontender. No guarding noted. Skin: No rashes or lesions noted Patient was informed and verbally consented to the use of an ambient scribe for clinic note documentation during this visit. [facility] Medical History Thyroid disease Frequent UTI Elevated cholesterol Murmur LBBB (left bundle branch block) Bronchitis Pulmonary nodule less than 6 mm in diameter with low risk for malignant neoplasm COPD (chronic obstructive pulmonary disease) Pulmonary fibrosis Surgical History Hx of colonoscopy (~03/10/25) H/O inguinal hernia repair Family History Father Emphysema lung Mother No problems noted. 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 Patient Tobacco Use Status: Former Tobacco user service: Yes Current occupational status: retired Current occupation: works for [employer] Cognitive needs: No Hearing needs: No Vision needs: No Review of Systems Const All systems reviewed & are unremarkable except as noted in HPI and below Physical Exam Vital Signs: Last Vital Signs Temp 99.1 F 04/29/25 09:41 Pulse 77 04/29/25 09:41 BP 120/72 04/29/25 09:41 Pulse Ox 97 04/29/25 09:41 Oxygen Delivery Method Room Air 04/29/25 09:41 Assessment & Plan Assessment & Plan (1) Cough: Code(s): R05.9 - Cough, unspecified Plan Most likely CAP vs bronchitis vs viral syndrome Plan -CXR done in the office today -will send z-reymundo as directed -donna maddox as needed for cough The focus for the patient's current presentation of fever involved ordering a chest x-ray to evaluate for respiratory complications, considering his past pneumonia history. The inhaler usage was reviewed to ensure effective technique, and supportive care measures were discussed implicitly for fever management. Orders: Orders XR chest 2V Today R05.9 - Cough, unspecified Medications: New benzonatate 100 mg PO bid-tid 7 days PRN 14 caps 0RF Cough azithromycin For 250 mg dose pack: take 500 mg today (day 1), then 250 mg for 4 days (days 2-5) PO 6 tabs 0RF Coding Level of Care Code Est Pt Level 4 (00807) Diagnoses Cough R05.9
[2025-04-29 09:41] VITALS: BP 120/72; PULSE 77; TEMP 37.3; O2SAT 97
== END 2025-04-29 10:45 | disposition home or self-care (01) ==
PROVIDERS: PCP Internal Medicine; Visit Provider Physician Assistant Medical
DX: R05.9 Cough, unspecified (principal)

== ENCOUNTER → 2025-04-29 10:15 | Outpatient (BNV) | payer MEDICARE, OTHER, SELFPAY | PROVIDERS: PCP Internal Medicine; Visit Provider Radiology Diagnostic Radiology | DX: R91.8 Other nonspecific abnormal finding of lung field (principal) | CPT/HCPCS: 71046 ==

== ENCOUNTER 2025-06-13 13:14 | Outpatient (AMB) | payer MEDICARE, OTHER, SELFPAY ==
--- NOTE | 2025-06-13 13:17 | A.OFFPC_ITS ---
Vital Signs 06/13/25 13:25 Height 5 ft 7 in Weight 81.647 kg BMI 28.2 BP 118/48 L Blood Pressure Location Lt brachial Position Sitting Respiration 16 Pulse 75 Pulse Source Pulse Oximeter Temp 97.7 F Temp Source Temporal Artery Scan Pulse Oximetry (%) 96 Oxygen Delivery Method Room Air Intake Visit Reasons: Routine / Phobia Qa Software Tester Required: No Accompanied by: Self / Same As Patient Allergies tamsulosin (TAMSULOSIN) Allergy (Unknown, Verified 06/13/25 13:17) HIVES Latex, Natural Rubber Adverse Reaction (Severe, Verified 06/13/25 13:17) hives Medication List - Last Reconciled 06/13/25 by DANIELLE Bird albuterol sulfate 90 mcg/actuation 2 puffs inhalation Q6-8H PRN atorvastatin 20 mg PO DAILY budesonide-formoterol 80-4.5 mcg/actuation (Symbicort) 1 puff inhalation BID cranberry yzsxybc-i-alupbjk 157.5-500 mg 1 cap PO nugznvgxjnz-gadrghsqa-qgr C-Mn 500-400 mg 2 caps PO BID levothyroxine 200 mcg PO DAILY montelukast 10 mg PO BEDTIME multivitamin 1 tab PO DAILY trazodone 25 - 50 mg (0.5 - 1 x 50 mg) PO BEDTIME PRN trospium 20 mg PO QPM 90 days Tobacco use date assessed: 02/19/25 Dental Screening Dental Screen Date: 02/19/25 HPI HPI Comments History of Present Illness Details 79-year-old male with history of hyperli pidemia, hypothyroidism, asthma presents to the office today for management of chronic conditions and to establish care. Hypothyroidism-on levothyroxine Hyperlipidemia-on atorvastatin 20 mg daily COPD-on Symbicort for maintenance, albuterol p.r.n. follows with pulmonology- Karel BPH on trospium Concerns: Clausterphonia- intermittent. Reports it happens on the raod, fights it . Backroads and when driving slow is ok. Having panic attacks. Has not sought out a therapist. Figuring his way through this. OK for days and then several years. 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 Controls with relaxing. He feels he tired and now sleeping well, but difficulty. Concern for pneumonia- cmild chest pressure intermittently. Then has tightness on left lower lung. Aspirin helped. Feels the need to cough, but doesnt always come up. Yellow thick sputum. No fevers or chills. Dry mouth- persistent. Drinking plenty of water. On trospium Health maintenance: Last colonoscopy 03/2025, 2 year follow-up advised. ROS: General: No fevers, malaise, unintentional weight loss HEENT: No blurred vision, diplopia. No sore throat, nasal congestion, rhinorrhea, sinus pain, ear pain Cardiovascular: No chest pain, palpitations, or leg edema Respiratory: No shortness of breath, wheezing, cough GI: No abdominal pain, nausea, vomiting, diarrhea, constipation, melena, hematochezia : No dysuria, hematuria, increased urinary frequency, decreased urinary output MSK: No myalgia, back pain Neuro: No headaches, weakness, paresthesias Skin: No rashes or lesions EXAM: Constitutional - Awake and Alert, No apparent distress Eyes - PERRL Cardiovascular - S1S2, RRR, No edema Respiratory - Normal lung expansion, Normal respiratory effort, No respiratory distress, rhonchi RLL Extremities - no calf tenderness bilaterally, no swelling Skin - Warm/Dry Neurological - Alert & oriented x3 Psychological - Appropriate affect [facility] Medical History (Updated 06/13/25 @ 14:23 by DANIELLE Bird) Hypothyroidism Thyroid disease Frequent UTI Elevated cholesterol Murmur LBBB (left bundle branch block) Bronchitis Pulmonary nodule less than 6 mm in diameter with low risk for malignant neoplasm COPD (chronic obstructive pulmonary disease) Pulmonary fibrosis Surgical History Hx of colonoscopy (~03/10/25) H/O inguinal hernia repair Family History Father Emphysema lung Mother No problems noted. 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 Mati Holland, Claritza Garcia, Jasson Hannon and colleagues, with an educational celso from [employer]. Physical exam (Primary Care) Vital Signs: Last Vital Signs Temp 97.7 F 06/13/25 13:25 Pulse 75 06/13/25 13:25 Resp 16 06/13/25 13:25 BP 118/48 L 06/13/25 13:25 Pulse Ox 96 06/13/25 13:25 Oxygen Delivery Method Room Air 06/13/25 13:25 BMI result Body Mass Index 28.2 Tobacco/Smoking Status: Tobacco use Status Tobacco use date assessed 02/19/25 06/13/25 13:28 Patient Tobacco Use Status Former Tobacco user 06/13/25 13:28 e-Cigarette/Vaping Use Never Used 06/13/25 13:28 Thrive Assessment: Date of Thrive Assessment Date Thrive assessed 02/19/25 06/13/25 13:28 Coding Level of Care Code New Pt Level 4 (66217) Complex EM visit Add On G2211 Diagnoses COPD (chronic obstructive pulmonary disease) J44.9 Pulmonary fibrosis J84.10 Hypothyroidism E03.9 Elevated cholesterol E78.00 Dry mouth R68.2 Phobia F40.9 Productive cough R05.8 Assessment & Plan Assessment & Plan (1) COPD (chronic obstructive pulmonary disease): Comment: Mild to moderate, chronic, has been well controlled and stable. There was more discussion about his medication. He is using medicine from [facility], ( budesonide 200 mcg - Formoterol 6 mcg. ) 2 puffs b.i.d.. And albuterol 2 puffs Q 6 hours only p.r.n. Recently treated with a course of prednisone for 5 days, , Z-Reymundo, and Augmentin for 1 week. Now okay Code(s): J44.9 - Chronic obstructive pulmonary disease, unspecified Category: Medical Plan: Controlled. Continue maintenance inhalers and albuterol p.r.n.. Follow-up with pulmonology as scheduled (2) Pulmonary fibrosis: Comment: HE HAS MINIMAL FIBROTIC CHANGES IN THE APICAL AREAS AND ALSO AT THE BASES. CLINICALLY NOT SIGNIFICANT, Code(s): J84.10 - Pulmonary fibrosis, unspecified Category: Medical Plan: Follow-up with pulmonology as scheduled (3) Hypothyroidism: Code(s): E03.9 - Hypothyroidism, unspecified Category: Medical Plan: TSH ordered. Continue levothyroxine (4) Elevated cholesterol: Code(s): E78.00 - Pure hypercholesterolemia, unspecified Category: Medical Plan: Lipid panel ordered. Continue statin. (5) Dry mouth: Code(s): R68.2 - Dry mouth, unspecified Category: Medical Plan: Recommend Biotene. Possibly related to trospium. Advised to reach out to urology regarding this medication (6) Phobia: Code(s): F40.9 - Phobic anxiety disorder, unspecified Category: Medical Plan: Recommended therapist. Could also be related to insomnia. Prescribed trazodone (7) Productive cough: Code(s): R05.8 - Other specified cough Category: Medical Plan: CXR ordered. Will also check CBC. Plan Follow-up in 6 months. Labs to be completed following visit today Orders: Orders Basic Metabolic Panel Today DANIELLE Bird E03.9 - Hypothyroidism, unspecified, E78.00 - Pure hypercholesterolemia, unspecified, J44.9 - Chronic obstructive pulmonary disease, unspecified, J84.10 - Pulmonary fibrosis, unspecified Liver Panel Today DANIELLE Bird E03.9 - Hypothyroidism, unspecified, E78.00 - Pure hypercholesterolemia, unspecified, J44.9 - Chronic obstructive pulmonary disease, unspecified, J84.10 - Pulmonary fibrosis, unspecified TSH reflex Free T4 Today DANIELLE Bird E03.9 - Hypothyroidism, unspecified, E78.00 - Pure hypercholesterolemia, unspecified, J44.9 - Chronic obstructive pulmonary disease, unspecified, J84.10 - Pulmonary fibrosis, unspecified XR chest 2V Today DANIELLE Bird R05.8 - Other specified cough, R07.81 - Pleurodynia Complete Blood Count Auto Diff Today DANIELLE Bird E03.9 - Hypothyroidism, unspecified, E78.00 - Pure hypercholesterolemia, unspecified, J44.9 - Chronic obstructive pulmonary disease, unspecified, J84.10 - Pulmonary fibrosis, unspecified Lipid Panel Today DANIELLE Bird E03.9 - Hypothyroidism, unspecified, E78.00 - Pure hypercholesterolemia, unspecified, J44.9 - Chronic obstructive pulmonary disease, unspecified, J84.10 - Pulmonary fibrosis, unspecified Medications: New trazodone 25 - 50 mg (0.5 - 1 x 50 mg) PO BEDTIME PRN 90 tabs 1RF sleep DANIELLE Bird Changed From albuterol sulfate 90 mcg/actuation 2 puffs inhalation Q6H PRN 8.5 grams 0RF shortness of breath or wheezing or cough To albuterol sulfate 90 mcg/actuation 2 puffs inhalation Q6-8H PRN Danielle Galvan PA-C Patient Instructions: Biotene for dry mouth. Check labs and chest xray Trial trazodone. Consider counseling for phobias
--- OUTSIDE RECORDS SUMMARY | 2025-06-13 13:18 | XMS_ITS | Data Portability ---
Author Organization [place] - [facility], Allergy Address [address] [place] [phone] Care Team Providers Care Chief Medical Officer Name Role Phone MARIA TERESA, KARTIK Primary Care Provider Assessment Encounter Date Assessment Date Assessment LastModified by Organization Details LastModified Time 05/02/2025 05/02/2025 79-year-old male with history of mild CAD OPD on Symbicort presents today for evaluation of dysphonia which has worsened since the winter. This is without sore throat or dysphagia. On exam, he does not have any vocal cord paralysis or any vocal cord lesion. 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 We reviewed voice hygiene including adequate hydration. Incidentally noted on exam was patchy erythema of the soft palate which can be seen with oral thrush. I did send in nystatin. [email or web address] Not available 05/06/2025 19:05:37 Plan of Treatment Reminders Order Date Submit Date Provider Last Modified By Organization Details Last Modified Time Details Appointments None recorded. Lab None recorded. Referral None recorded. Procedures None recorded. Surgeries None recorded. Imaging None recorded. Medication Orders nystatin 100,000 unit/mL oral suspension 2024 025 [facility] #[id number], [address] [facility] [place], [address], 16:21:04 Patient TargetsNo targets recorded. Patient InstructionsNo instructions recorded. Reason for Referral None Reported. Problems Name Problem SNOMED Code Status Onset Date Resolution Date Notes Provider Name and Address Organization Details Recorded Time Candidiasis of mouth 01433269 Active 025 EDWIN LUNA MD [address] [facility] [address], [place], [phone], [facility] - [facility] 16:20:16 Dysphonia 27389011 Active 025 EDWIN LUNA MD [address] [facility] [address], [place], [phone], [facility] - [facility] 16:22:25 Problem Notes None recorded. Procedures Surgical History Date Name Laterality Status Provider Name and Address Organization Details Recorded Time 05/02/20 Fiberoptic Laryngoscopy (Comprehensive) completed EDWIN LUNA MD [address] [address], [place], [phone], [facility] 05/06/2025 19:04:23 hernia repair completed Kylee Colunga [facility] 05/02/2025 16:11:59 Imaging Results None recorded. Procedure Notes None recorded. Medical Equipment None Reported. Allergies Allergen ID Allergen Name Allergen Category Reaction Reaction Severity Criticality Documentation Date Start Date Code Code System Note Provider Name and Address Organization Details Recorded Time 661016 tamsulosi n medicatio n Not available Not available Not available 05/02/2025 17678 RxNorm Kylee cabello [place] [facility] 16:09:48 097062 latex environme nt,medica tion Not available Not available Not available 05/02/2025 10886 91 RxNorm Kylee cabello [place] [facility] 16:09:55 Medications Name Sig Start Date Stop Date Status Note LastModified by Organization Details LastModified Time nystatin 100,000 unit/mL oral suspension TAKE 5 ML 4 TIMES A DAY BY ORAL ROUTE FOR 14 DAYS. active Not Available Not Available No t Available atorvastati n 20 mg tablet Take 1 tablet every day by oral route. active Not Available Not Available No t Available azithromyci n 250 mg tablet TAKE 2 TABLETS BY MOUTH TODAY, THEN TAKE 1 TABLET DAILY FOR 4 DAYS DIRECTED 05/02 completed Not Available Not Available Not Available prednisone 20 mg tablet TAKE 2 TABLETS BY MOUTH EVERY MORNING 05/02 completed Not Available Not Available Not Available ciprofloxac in 250 mg tablet TAKE 1 TAB ORALLY DAILY FOR 30 DAYS TAKE TABLET DAY BEFORE, DAY OF AND DAY AFTER CATHETERI ZATION 05/02 completed Not Available Not Available Not Available ciprofloxac in 500 mg tablet TAKE 1 TABLET (500 MG) ORALLY EVERY 12 HOURS FOR 7 DAYS 05/02 completed Not Available Not Available Not Available benzonatate 100 mg capsule TAKE 1 CAPSULE ORALLY 2 TO 3 TIMES A DAY NEEDED FOR COUGH FOR 7 DAYS 05/02 completed Not Available Not Available Not Available nitrofurant oin macrocrysta l 100 mg capsule 100 MG ORALLY 2 TIMES A DAY FOR 7 DAYS 05/02 completed Not Available Not Available Not Available clotrimazol e-betametha sone 1 %-0.05 % topical cream APPLY TO AFFECTED AREA TOPICALLY 2 TIMES A DAY FOR 2 WEEKS APPLY THIN COAT TWO TIMES A DAY 05/02 completed Not Available Not Available Not Available montelukast 10 mg tablet TAKE 1 TABLET BY MOUTH EVERY DAY active Not Available Not Available No t Available levothyroxi ne 200 mcg tablet Take 1 tablet every day by oral route. active Not Available Not Available No t Available albuterol sulfate HFA 90 mcg/actuati on aerosol inhaler 2 PUFF INHALED EVERY 6 HOURS NEEDED FOR SHORTNESS OF BREATH OR WHEEZING OR COUGH 05/02 completed Not Available Not Available Not Available amoxicillin 875 mg-potassiu m clavulanate 125 mg tablet TAKE 1 TABLET BY MOUTH EVERY 12 HOURS 05/02 completed Not Available Not Available Not Available trospium 20 mg tablet Take 1 tablet twice a day by oral route. active Not Available Not Available No t Available Advair HFA 115 mcg-21 mcg/actuati on aerosol inhaler INHALE 1 PUFF BY MOUTH TWICE A DAY 05/02 completed Not Available Not Available Not Available Symbicort 160 mcg-4.5 mcg/actuati on HFA aerosol inhaler Inhale 2 puffs twice a day by inhalatio n route. active Not Available Not Available No t Available Gavilax 17 gram/dose oral powder DISSOLVE 17 GRAMS IN BEVERAGE OF CHOICE AND DRINK BY MOUTH TWICE DAILY. 05/02 completed Not Available Not Available Not Available Breo Ellipta 200 mcg-25 mcg/dose powder for inhalation USE 1 INHALATIO N BY MOUTH DAILY FOR 30 DAYS 05/02 completed Not Available Not Available Not Available Vitals Date Recorded Body height Body mass index (BMI) Body weight Provider Name and Address Organization Details Last Updated DateTime 05/02/2025 170.18 cm 27.3 kg/m2 04105.07 g Kylee Keanu [place] - [facility] 05/02/2025 16:09:35 Social History None recorded. Functional Status None recorded. Mental Status None recorded. Family History Nothing Reported. Medical History Condition Response Thyroid Problems Y Asthma Y Past Encounters Encounter ID Performer Location Encounter Start Date Encounter Closed Date Diagnosis/Indication Diagnosis SNOMED-CT Code Diagnosis ICD10 Code Diagnosis Note [id number] EDWIN LUNA MD [facility] [address] [phone] 05/02/2025 15:35:18 05/14/2025 13:41:52 Candidiasis of mouth 28261484 B37.0 Dysphonia 35674625 R49.0 Health Concerns Section Related Observation LastModified by Organization Detai ls LastModified Time None Recorded Concern Status LastModified by Organization Details LastModified Time None Recorded Advance Directives Directive None Recorded Payers Insurance Date Sequence Insurance Name Policy Number Policy Turc[employer] Covered Member ID [employer] Member ID Guarantor Name 05/14/2025 2 [employer] (MEDICARE SUPPLEMENT) Jarad Bishop [id number] Jarad Bishop 05/02/2025 1 MEDICARE B-CO: [facility] Jarad Bishop [id number] Jarad Bishop Notes Date Note Type Note Provider Name and Address Organization Details Recorded Time 05/02/2025 text/html 79-year-old male presents today for dysphonia. Last fall/ winter getting worseNo sore throatNo trouble swallowingNo ear painNo weight lossNo heartburnsome allergies, avoids meds Lots of waterUses voice average amount occasional throat clearing COPD mild, on symbicort for years EDWIN LUNA MD [address] [place] [address], [phone], [place] - [facility] 05/06/2025 19:05:55
[2025-06-13 13:25] VITALS: BP 118/48; PULSE 75; RESP 16; TEMP 36.5; O2SAT 96; BMI 28.2
== END 2025-06-13 14:14 | disposition home or self-care (01) ==
LOC: HO.HMCHD 13:15
PROVIDERS: PCP Physician Assistant; Visit Provider Physician Assistant
DX: J44.9 Chronic obstructive pulmonary disease, unspecified (principal); J84.10 Pulmonary fibrosis, unspecified; E03.9 Hypothyroidism, unspecified; E78.00 Pure hypercholesterolemia, unspecified; R68.2 Dry mouth, unspecified; F40.9 Phobic anxiety disorder, unspecified; R05.8 Other specified cough

== ENCOUNTER 2025-06-13 13:14 | Outpatient (REF) | payer MEDICARE, OTHER, SELFPAY ==
--- NOTE | ~2025-06-13 | XR_ITS ---
EXAMINATION: XR CHEST CLINICAL INFORMATION: R05.8 - Other specified cough COMPARISON: April 29, 2025 TECHNIQUE: 2 views of the chest were obtained. FINDINGS: Lungs are hyperinflated. There are coarse interstitial markings. There is improved aeration of the lung bases compared to the prior. There is right apical pleural thickening. There is calcification in the aortic knob. Heart size is within normal. Suspected syndesmophytes are again noted in the thoracic spine. XR/XR chest 2V IMPRESSION: Lung hyperinflation and chronic interstitial markings. Suspected ankylosing spondylitis. Electronically signed by: Alexandru Sen MD 06/13/2025 02:18 PM EDT
== END 2025-06-13 13:15 | disposition home or self-care (01) ==
LOC: HO.XRAY 13:14
PROVIDERS: PCP Physician Assistant; Visit Provider Physician Assistant
DX: J44.9 Chronic obstructive pulmonary disease, unspecified (principal); J84.10 Pulmonary fibrosis, unspecified; E03.9 Hypothyroidism, unspecified; E78.00 Pure hypercholesterolemia, unspecified; R68.2 Dry mouth, unspecified; F40.9 Phobic anxiety disorder, unspecified; R05.8 Other specified cough; N40.0 Benign prostatic hyperplasia without lower urinary tract symptoms; Z79.899 Other long term (current) drug therapy
CPT/HCPCS: 71046; 99202

== ENCOUNTER → 2025-06-13 14:04 | Outpatient (BNV) | payer MEDICARE, OTHER, SELFPAY | PROVIDERS: PCP Physician Assistant; Visit Provider Radiology Diagnostic Radiology | DX: J84.9 Interstitial pulmonary disease, unspecified (principal) | CPT/HCPCS: 71046 ==

== ENCOUNTER 2025-06-16 07:22 | Outpatient (REF) | payer MEDICARE, OTHER, SELFPAY ==
--- OUTSIDE RECORDS SUMMARY | 2025-06-16 07:23 | XMS_ITS | Data Portability ---
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 Patient InstructionsNo instructions recorded. Reason for Referral None Reported. Problems Name Problem SNOMED Code Status Onset Date Resolution Date Notes Provider Name and Address Organization Details Recorded Time Candidiasis of mouth 09149741 Active 025 EDWIN LUNA MD [address] [facility] [address], [place], [phone], [facility] - [facility] 16:20:16 Dysphonia 39486395 Active 025 EDWIN LUNA MD [address] [facility] [address], [place], [phone], [facility] - [facility] 16:22:25 Problem Notes None recorded. Procedures Surgical History Date Name Laterality Status Provider Name and Address Organization Details Recorded Time 05/02/20 Fiberoptic Laryngoscopy (Comprehensive) completed EDWIN LUNA MD [address] [address], [place], [phone], [facility] 05/06/2025 19:04:23 hernia repair completed Kylee Colunga [facility] 05/02/2025 16:11:59 Imaging Results None recorded. Procedure Notes None recorded. Medical Equipment None Reported. Allergies Allergen ID Allergen Name Allergen Category Reaction Reaction Severity Criticality Documentation Date Start Date Code Code System Note Provider Name and Address Organization Details Recorded Time 873627 tamsulosi n medicatio n Not available Not available Not available 05/02/2025 65158 RxNorm Kylee cabello [place] [facility] 16:09:48 510811 latex environme nt,medica tion Not available Not available Not available 05/02/2025 93199 91 RxNorm Kylee cabello [place] [facility] 16:09:55 Medications Name Sig Start Date Stop [...] Updated DateTime 05/02/2025 170.18 cm 27.3 kg/m2 69209.07 g Kylee Keanu [place] - [facility] 05/02/2025 16:09:35 Social History None recorded. Functional Status None recorded. Mental Status None recorded. Family History Nothing Reported. Medical History Condition Response Thyroid Problems Y Asthma Y Past Encounters Encounter ID Performer Location Encounter Start Date Encounter Closed Date Diagnosis/Indication Diagnosis SNOMED-CT Code Diagnosis ICD10 Code Diagnosis Note [id number] EDWIN LUNA MD [facility] [address] [phone] 05/02/2025 15:35:18 05/14/2025 13:41:52 Candidiasis of mouth 45674795 B37.0 Dysphonia 14820931 R49.0 Health Concerns Section Related Observation LastModified by Organization Detai ls LastModified Time None Recorded Concern Status LastModified by Organization Details LastModified Time None Recorded Advance Directives Directive None Recorded Payers Insurance Date Sequence Insurance Name Policy Number Policy Turcios Covered Member ID Turcios Member ID Guarantor Name 05/14/2025 2 [employer] (MEDICARE SUPPLEMENT) Jarad Bishop [id number] Jarad Bishop 05/02/2025 1 [place] [facility] [employer] [facility] Jarad Bishop [id number] Jarad Bishop Notes Date Note Type Note Provider Name and Address Organization Details Recorded Time 05/02/2025 text/html 79-year-old male presents today for dysphonia. Last fall/ winter getting worseNo sore throatNo trouble swallowingNo ear painNo weight lossNo heartburnsome allergies, avoids meds Lots of waterUses voice average amount occasional throat clearing COPD mild, on symbicort for years EDWIN LUNA MD [address] [place] [address], [phone], [place] - [facility] 05/06/2025 19:05:55
[2025-06-16 07:36] LABS: MANUAL DIFF FLAG NO
[2025-06-16 08:04] LABS: Hematocrit 38.9 % (42.0-52.0); Hemoglobin 13.1 g/dl (14.0-18.0); Imm Gran Abs Auto 0.04 X10*3/uL (0.00-0.03); Imm Gran Pct Auto 0.7 % (0.0-0.4); Lymphocytes Absolute Auto 1.5 X10*3/uL (1.2-4.9); Mean Corpuscular HGB Conc 33.7 g/dl (31.0-36.0); Mean Corpuscular Hemoglobin 29.2 pg (27.0-33.0); Mean Corpuscular Volume 86.8 fL (80.0-98.0); NRBC Abs Auto 0.000 X10*3/uL (0.0-0.012); NRBC Pct Auto 0.0 /100WBC (0.0-0.2); Platelet Count 276 X10*3/uL (160-400); Red Blood Count 4.48 X10*6/uL (4.60-5.80); White Blood Count 5.5 X10*3/uL (4.8-10.8)
[2025-06-16 08:40] LABS: Alanine Aminotransferase 28 U/L (0-40); Albumin Level 3.9 g/dL (3.5-5.0); Alkaline Phosphatase 93 U/L (39-117); Anion Gap 12 (12-20); Aspartate Amino Transferase 29 U/L (5-37); Blood Urea Nitrogen 14 mg/dL (9-16); Calcium 9.1 mg/dL (8.4-10.2); Carbon Dioxide 25 mmol/L (22-29); Chloride 108 mmol/L (96-108); Cholesterol 147 mg/dL (<200); Estimated Glomerular Filt Rate > 60; HDL Cholesterol 34 mg/dL (>40); Potassium 4.1 mmol/L (3.3-5.1); Sodium 141 mmol/L (135-145); Total Protein 7.2 g/dL (6.5-8.0); Triglycerides 123 mg/dL (<150)
== END 2025-06-16 07:23 | disposition home or self-care (01) ==
LOC: HO.LAB 07:22
PROVIDERS: PCP Physician Assistant; Visit Provider Physician Assistant
DX: E03.9 Hypothyroidism, unspecified (principal); E78.00 Pure hypercholesterolemia, unspecified; J84.10 Pulmonary fibrosis, unspecified; J44.9 Chronic obstructive pulmonary disease, unspecified
CPT/HCPCS: 36415; 80048; 80061; 80076; 84443; 85025

== ENCOUNTER 2025-06-22 10:00 | Emergency (ER) | payer MEDICARE, OTHER, SELFPAY ==
--- NOTE | ~2025-06-22 | CT_ITS ---
CLINICAL HISTORY: abnormal CT scan feb persistent dyspnea and cough Exam: CT chest without IV contrast Comparison: CR/SR - XR CHEST 2 VIEWS - 06/13/25 14:[address]/SR - CT CHEST WO IV CON - 01/03/25 13:[address]/SR - CT CHEST WO IV CON - 03/27/23 13:06 EDT Findings: Previously seen right upper lobe airspace disease resolved. Previously seen right middle lobe pleural-based density improved 16 x 5 mm versus 23 x 11 mm previously, band shaped, favoring subsegmental atelectasis or parenchymal scar. Several stable linear band densities of the bilateral upper lobes, lower lobes are most likely parenchymal scars. Stable mild biapical pleural-parenchymal scars. No new consolidation. Minimal pleural effusion bilaterally is new. No pneumothorax. Diffuse smooth interlobular septal thickening, most likely pulmonary interstitial edema. Right upper lobe elongated lobulated nodular density 8 x 3 mm on series 4, image 61 is stable. Stable right middle lobe 4 mm nodule on image 98. Stable left lower lobe subpleural 7 mm nodule on image 148. Stable left upper lobe 5 mm subpleural nodule on image 57. Mild cardiomegaly. No pericardial effusion. Nonaneurysmal aorta. Dilated pulmonary trunk 3.3 cm diameter. Moderate atherosclerotic calcification of the coronary arteries and aortic root. No lymphadenopathy. No actionable thyroid nodule. Unremarkable chest wall. Punctate nonobstructing bilateral nephrolithiasis. Thoracic spine DISH, diffuse osseous demineralization, no acute fracture. Impression: 1. Mild pulmonary interstitial edema and new small pleural effusion, mild cardiomegaly, concerning for congestive heart failure. 2. Several stable pulmonary nodules up to [address] chest follow-up in 12 month. 3. Dilated pulmonary trunk, can be seen in the setting of pulmonary arterial hypertension. 4. Atherosclerotic disease. This document has been electronically signed by: Kelly Simmons MD on 06/22/2025 12:18:50
--- NOTE | 2025-06-22 10:05 | ED.SOB ---
HPI - SOB/Dyspnea General Chief Complaint: Dyspnea Stated Complaint: SOB,92%, 96% ON O2 PER EMS Source: patient and old records reviewed Mode of arrival: ambulatory Limitations: no limitations History of Present Illness ED Provider: DARIEL LOUIE Narrative: 79 yo male with PMH of hypothyroidism, HLD, LBBB, COPD, pulm fibrosis here with c/o working outside trying to save his dying grass all day yesterday. Last night he started with increased trouble breathing and feeling like he was moaning trying to catch his breath. His chest is tight. Some sputum, no fevers. Just seen by PCP office on zpak - still with two days left CXR negative 06/13/25. He had abnormal CT scan of chest in Feb with suggested 4 month repeat imaging he has not had this done. No recent travel/procedures. Not currently on prednisone. He states he didn't know the air quality was so bad yesterday. MD elicited complaint: shortness of breath and cough Pertinent past history: COPD Onset (ago): day(s) (1) Context: recent illness and smoke/fume exposure Timing: progressively worsening Severity: moderate Exacerbating factors: exertion and coughing Relieving factors: rest Known history of: COPD Associated symptoms: cough, wheezing and sputum production Treatment prior to arrival: oxygen Related Data Home Medications ?Medication ?Instructions ?Recorded ?Confirmed atorvastatin 20 mg tablet 20 mg PO DAILY 08/27/20 06/13/25 multivitamin 1 tab PO DAILY 10/02/20 06/13/25 levothyroxine 200 mcg tablet 200 mcg PO DAILY 05/21/21 06/13/25 budesonide-formoterol HFA 80 1 puff inhalation BID COPD 02/25/25 06/13/25 mcg-4.5 mcg/actuation aerosol inhaler (Symbicort) cranberry extract 157.5 1 cap PO 02/25/25 06/13/25 xn-v-vpstnko 500 mg capsule osnuesextrt-lvquchurz-cdl C-Mn 500 2 cap PO BID 02/25/25 06/13/25 mg-400 mg capsule montelukast 10 mg tablet 10 mg PO BEDTIME 02/25/25 06/13/25 albuterol sulfate 90 mcg/actuation 2 puff inhalation Q6-8H PRN 06/13/25 06/13/25 aerosol inhaler shortness of breath or wheezing or cough Previous Rx's ?Medication ?Instructions ?Recorded trospium 20 mg tablet 20 mg PO QPM 90 days #90 tabs 04/01/25 trazodone 50 mg tablet 25 - 50 mg (0.5 - 1 x 50 mg) PO 06/13/25 BEDTIME PRN sleep #90 tabs azithromycin 250 mg tablet See Rx Instructions PO .COMPLEX #6 06/18/25 tabs cefuroxime axetil 500 mg tablet 500 mg PO BID 7 days #14 tabs 06/22/25 furosemide 20 mg tablet (Lasix) 20 mg PO DAILY #3 tabs 06/22/25 prednisone 20 mg tablet 40 mg (2 x 20 mg) PO DAILY 5 days 06/22/25 #10 tabs Allergies Allergy/AdvReac Type Severity Reaction Status Date / Time tamsulosin (TAMSULOSIN) Allergy Unknown HIVES Verified 06/13/25 13:17 Latex, Natural Rubber AdvReac Severe hives Verified 06/13/25 13:17 adhesive AdvReac Hives Verified 06/22/25 10:21 Review of Systems Review of Systems: Constitutional : No Fever, No Chills ENT/Mouth : No Hoarseness, No sore throat, No Rhinorrhea Eyes: No Redness, No Discharge, No Vision Changes Cardiovascular : No Chest Pain, positive SOB, positive Dyspnea on Exertion, No Edema Respiratory : positive Cough, pos Sputum, positive Wheezing, Gastrointestinal : No Nausea, No Vomiting, No Diarrhea, No abdominal Pain Genitourinary : No Dysuria, No Hematuria Musculoskeletal : No joint pain, No Myalgias Skin : No rash Neuro : No Weakness, No Numbness, No Headache Psych : No anxiety, depression All other systems reviewed and are negative [facility] Past Medical History Attestation statement: The following information was validated with the patient. Source: old records reviewed Medical History Hypothyroidism Thyroid disease Frequent UTI Elevated cholesterol Murmur LBBB (left bundle branch block) Bronchitis Pulmonary nodule less than 6 mm in diameter with low risk for malignant neoplasm COPD (chronic obstructive pulmonary disease) Pulmonary fibrosis Surgical History Hx of colonoscopy (~03/10/25) H/O inguinal hernia repair Family History Family History Father Emphysema lung Mother No problems noted. Social History Social History Household Members: Spouse Housing: House Are you a primary reservoir caretaker to a significant other at home: No Do you presently have visiting nurse or other home services: No Comment: med surg overflow Patient Tobacco Use Status: Former Tobacco user Smoked in Last 30 Days: No e-Cigarette/Vaping Use: Never Used Use of substances other than those prescribed or required for medical reasons: No Advance Directives: Yes Advance Directives Information Provided: No Advance Directives on File: No Do you have a plan to hurt others: No Plan service: Yes Current occupational status: retired Current occupation: works for [employer] Cognitive needs: No Hearing needs: No Vision needs: No Physical Exam Vital Signs: Vital Signs: Last Vital Signs Temp 98.4 F 06/22/25 10:22 Pulse 70 06/22/25 10:41 Resp 16 06/22/25 10:41 BP 106/45 L 06/22/25 13:23 Pulse Ox 97 06/22/25 10:22 O2 Del Method Nasal Cannula 06/22/25 10:22 Oxygen Flow Rate 2 06/22/25 10:18 BMI result Body Mass Index 26.2 Appearance: Alert. Oriented X3. No acute distress. Eyes: Pupils equal, round and reactive to light. ENT: Pharynx normal. Neck: Normal inspection. Neck supple. CVS: Normal heart rate and rhythm. Pulses normal. Respiratory: No respiratory distress. Breath sounds diminished with RUL wheezing, LLL diminished Abdomen: Soft and nontender. Skin: Skin warm and dry. Normal skin color. Normal skin turgor. Extremities: No lower extremity edema. No calf ttp Neuro: Oriented X 3. No motor deficit. No sensory deficit. CN2-12 intact Course Course Course Narrative: given CT scan mass improved and will trial IV lasix no hypoxia 95% when walking Medications Administered Discontinued Medications Generic Name Dose Route Start Last Admin Trade Name Freq PRN Reason Stop Dose Admin Ceftriaxone Sodium 1 gm 06/22/25 10:17 06/22/25 11:59 Ceftriaxone Sodium 1 Gm Vial IVPUSH 06/22/25 10:18 1 gm ONCE ONE Administration Albuterol Sulfate 2.5 mg/ 0 mg 06/22/25 10:32 06/22/25 10:40 Albuterol/Ipratropium 3 ml INHALE 06/22/25 10:33 1 dose ONCE ONE Administration Furosemide 20 mg 06/22/25 12:55 06/22/25 13:23 Furosemide 20 Mg/2 Ml Vial IVPUSH 06/22/25 12:56 20 mg ONCE ONE Administration Protocol Methylprednisolone Sodium Succinate 60 mg 06/22/25 10:17 06/22/25 10:58 Methylprednisolone Sod Succ 125 Mg/2 Ml Vial IVPUSH 06/22/25 10:18 60 mg ONCE ONE Administration Medical Decision Making Medical Decision Making [facility] Narrative: 79 yo male with PMH of hypothyroidism, HLD, LBBB, COPD, pulm fibrosis here with c/o persistent cough, symptoms and just seen by PCP office - still has two days left of zpak based off clinical dx CXR showed no consolidation hx of abnormal CT chest with lesion Dec 2024 - did not have [address] scan or PET that I can see. He comes in with dyspnea/cough/no response to rescue INH after outside yard work at this time will need basic labs, cultures, neb, IV steroids, IV ceftriaxone and repeat of CT chest - this has been months on and off I do not suspect VTE Differential Diagnosis Differential Diagnoses: The differential diagnosis associated with the presentation includes COPD, mass, URI, bronchitis Admission/Observation Consideration of admission/observation: Escalation of care including admission/observation considered no hypoxia given therapy and IV lasix here at this time will add on ceftin and start on lasix PO 20mg for 3 days and refer to PCP wbc count but no source of infection Lab Data [facility] Lab Attestation statement: I reviewed the patient's lab results. anemia can follow up with PCP 06/22/25 10:47 06/22/25 10:47 Labs: Lab Results 06/22/25 06/22/25 06/22/25 Range/Units 10:47 10:48 10:57 WBC 17.6 H (4.8-10.8) X10*3/uL RBC 4.31 L (4.60-5.80) X10*6/uL Hgb 12.7 L (14.0-18.0) g/dl Hct 37.5 L (42.0-52.0) % MCV 87.0 (80.0-98.0) fL MCH 29.5 (27.0-33.0) pg MCHC 33.9 (31.0-36.0) g/dl RDW 12.4 (11.0-16.0) % Plt Count 259 (160-400) X10*3/uL MPV 8.6 L (9.4-12.4) fL Immature Gran % (Auto) 0.6 H (0.0-0.4) % Neut % (Auto) 91.7 H (45-73) % Lymph % (Auto) 2.7 L (20-40) % [place] % (Auto) 4.3 (2-11) % Eos % (Auto) 0.3 (0-4) % Baso % (Auto) 0.4 (0-2) % Lymph # (Auto) 0.5 L (1.2-4.9) X10*3/uL [place] # (Auto) 0.8 (0.1-1.2) X10*3/uL Eos # (Auto) 0.1 (0.0-0.4) X10*3/uL Baso # (Auto) 0.1 (0.0-0.2) X10*3/uL Abs Immat Gran (auto) 0.10 H (0.00-0.03) X10*3/uL Absolute Neuts (auto) 16.1 H (2.0-8.3) x10*3/uL Absolute Nucleated RBC 0.000 (0.0-0.012) X10*3/uL Nucleated RBC % (auto) 0.0 (0.0-0.2) /100WBC Smear Tech's Comments VERIFIED VBG pH 7.38 (7.32-7.43) VBG pCO2 45 mmHg VBG pO2 39 mmHg VBG HCO3 27 H (22-26) mmol/L VBG O2 Saturation 65.0 % VBG Base Excess 1.7 mmol/L Sodium 141 (135-145) mmol/L Potassium 4.2 (3.3-5.1) mmol/L Chloride 108 (96-108) mmol/L Carbon Dioxide 24 (22-29) mmol/L Anion Gap 13 (12-20) BUN 25 H (9-16) mg/dL Creatinine 1.32 (0.5-1.4) mg/dL Estim Creat Clear Calc 41.0 Estimated GFR 52 Random Glucose 119 H (60-115) mg/dL Lactic Acid 1.2 (0.5-2.0) mmol/L Calcium 9.3 (8.4-10.2) mg/dL Magnesium 2.2 (1.6-2.6) mg/dL Total Bilirubin 1.2 H (0.0-1.0) mg/dL Direct Bilirubin 0.4 (0.0-0.5) mg/dL AST 33 (5-37) U/L ALT 24 (0-40) U/L Alkaline Phosphatase 90 (39-117) U/L Troponin I High Sens 7.6 (<3.5-35.0) ng/L C-Reactive Protein 1.67 H (< or = 0.50) mg/dL B-Natriuretic Peptide 69 (<100) pg/mL Total Protein 7.2 (6.5-8.0) g/dL Albumin 4.0 (3.5-5.0) g/dL Procalcitonin 0.23 ng/mL Influenza Type A (PCR) NEGATIVE (Negative) Influenza Type B (PCR) NEGATIVE (Negative) RSV RNA Qual (PCR) NEGATIVE (Negative) SARS-CoV-2 RNA (RT-PCR) NEGATIVE (Negative) Independent Interpretation I performed an independent interpretation of an: EKG and CT Scan (?CHF) Interpretation: Rate: 71 Rhythm: NSR [place]: normal Normal P waves. Normal OTIS. LBBB ST T wave : no MAX, no change from prior qTC: 482 prior studies: no acute ischemia The study has been interpreted contemporaneously by me. . Radiology Impression Discussion of test interpretation with radiology: I have reviewed the radiologist's reading. Independent Historian Clinical information obtained from an independent historian. History obtained from or confirmed by: EMS External Record Review External record reviewed: Inpatient record and Outpatient record Prescription Management I considered prescription management with: Antibiotic and Other Discharge Plan Discharge Clinical Impression: COPD with acute exacerbation, Small pleural effusion Anemia Qualifiers: Anemia type: unspecified type Qualified Code(s): D64.9 - Anemia, unspecified Patient Disposition: Home, Self-Care Instructions: COPD (Chronic Obstructive Pulmonary Disease) (ED), Pleural Effusion (DC), Anemia (ED) Additional Instructions: start ceftin tomorrow morning start next dose of lasix tomorrow morning you have been having more anemia on recent lab tests - please make sure your doctor monitors this on CT scan there are very small fluid collections at the base of both lungs - we are going to give you a diuretic to see if this improves please take all medications with food. you should schedule close follow up with primary care doctor in 7 days return for any worsening symptoms or concerns On a cephalosporin?antibiotic, softer bowel movements are to be expected. Call your provider if you move your bowels more than 4 times a day, your bowel movements are almost all liquid, or you get a rash.?? Prescriptions: New cefuroxime axetil 500 mg tablet 500 mg PO BID 7 Days Qty: 14 0RF furosemide [Lasix] 20 mg tablet 20 mg PO DAILY Qty: 3 0RF prednisone 20 mg tablet 40 mg PO DAILY 5 Days Qty: 10 0RF No Action trospium 20 mg tablet 20 mg PO QPM 90 Days Qty: 90 3RF Rx Instructions: administer on an empty stomach azithromycin 250 mg tablet See Rx Instructions PO .COMPLEX Qty: 6 0RF Rx Instructions: take 500 mg today (day 1), then 250 mg for 4 days (days 2-5) PO multivitamin Tablet 1 tab PO DAILY montelukast 10 mg tablet 10 mg PO BEDTIME budesonide-formoterol [Symbicort] 80-4.5 mcg/actuation HFA aerosol inhaler 1 puff inhalation BID fmlymevirca-pfmvjetjn-opj C-Mn 500-400 mg Capsule 2 cap PO BID cranberry xuhqgcb-p-fobkhkc 157.5-500 mg Capsule 1 cap PO atorvastatin 20 mg tablet 20 mg PO DAILY levothyroxine 200 mcg tablet 200 mcg PO DAILY albuterol sulfate 90 mcg/actuation HFA aerosol inhaler 2 puff inhalation Q6-8H PRN (Reason: shortness of breath or wheezing or cough) trazodone 50 mg tablet 25 - 50 mg PO BEDTIME PRN (Reason: sleep) Qty: 90 1RF Print Language: Niuean
--- NOTE | 2025-06-22 10:17 | ECG_ITS ---
Test Reason : sob Blood Pressure : */* mmHG Vent. Rate : 71 BPM Atrial Rate : 71 BPM P-R Int : 170 ms QRS Dur : 160 ms QT Int : 444 ms P-R-T Axes : 65 26 84 degrees QTcB Int : 482 ms Normal sinus rhythm Left bundle branch block Abnormal ECG When compared with ECG of 05-Dec-2018 22:14, No significant change was found Referred By: Leatha Grissom Electronically Signed By: RAMIREZ SARKAR MD
[2025-06-22 10:18] VITALS: BP 112/61; BP 117/49; PULSE 73; PULSE 81; RESP 17; TEMP 36.9; O2SAT 97; BMI 26.2
[2025-06-22 10:22] VITALS: BP 117/49; PULSE 73; RESP 17; TEMP 36.9; O2SAT 97
[2025-06-22] MEDS: Albuterol Sulfate 2.5 MG, Albuterol/Iprat 2.5/0.5MG 3 ML 3 ML INHALE (10:40)
[2025-06-22 10:41] VITALS: PULSE 70; RESP 16; O2SAT 94
[2025-06-22 10:59] LABS: Hematocrit 37.5 % (42.0-52.0); Hemoglobin 12.7 g/dl (14.0-18.0); Imm Gran Abs Auto 0.10 X10*3/uL (0.00-0.03); Imm Gran Pct Auto 0.6 % (0.0-0.4); Lymphocytes Absolute Auto 0.5 X10*3/uL (1.2-4.9); MANUAL DIFF FLAG SCAN; Mean Corpuscular HGB Conc 33.9 g/dl (31.0-36.0); Mean Corpuscular Hemoglobin 29.5 pg (27.0-33.0); Mean Corpuscular Volume 87.0 fL (80.0-98.0); NRBC Abs Auto 0.000 X10*3/uL (0.0-0.012); NRBC Pct Auto 0.0 /100WBC (0.0-0.2); Platelet Count 259 X10*3/uL (160-400); Red Blood Count 4.31 X10*6/uL (4.60-5.80); SCAN SMEAR FLAG 1; White Blood Count 17.6 X10*3/uL (4.8-10.8)
[2025-06-22 11:01] LABS: Venous Blood Gas Refer to POC result
[2025-06-22 11:02] LABS: VBG HCO3 27 mmol/L (22-26); VBG O2 % Saturation 65.0 %
[2025-06-22 11:31] LABS: B Type Natriuretic Peptide 69 pg/mL (<100)
[2025-06-22 11:34] LABS: Troponin-I High Sensitivity 7.6 ng/L (<3.5-35.0)
[2025-06-22 11:35] LABS: Alanine Aminotransferase 24 U/L (0-40); Albumin Level 4.0 g/dL (3.5-5.0); Alkaline Phosphatase 90 U/L (39-117); Anion Gap 13 (12-20); Aspartate Amino Transferase 33 U/L (5-37); Blood Urea Nitrogen 25 mg/dL (9-16); Calcium 9.3 mg/dL (8.4-10.2); Carbon Dioxide 24 mmol/L (22-29); Chloride 108 mmol/L (96-108); Creatinine Clr Calc Pharmacy 41.0; Estimated Glomerular Filt Rate 52; Magnesium 2.2 mg/dL (1.6-2.6); Potassium 4.2 mmol/L (3.3-5.1); Sodium 141 mmol/L (135-145); Total Protein 7.2 g/dL (6.5-8.0)
[2025-06-22 12:07] LABS: Resp Syncy Virus RNA Qual PCR NEGATIVE (Negative); SARS COV2 PCR INHOUSE NEGATIVE (Negative)
[2025-06-22 12:10] LABS: Procalcitonin 0.23 ng/mL
--- NOTE | 2025-06-22 12:56 | MHC.EDTECH ---
Md wheat Notified o2 trial steady gait. O2 Lowest 94% -95%.
[2025-06-22 13:23] VITALS: BP 106/45
[2025-06-22] MEDS: Furosemide 20 MG/2 ML VIAL IVPUSH (13:23)
[2025-06-22 15:10] VITALS: BP 111/47; PULSE 63; RESP 18; TEMP 36.8; O2SAT 93
[2025-06-22 15:18] VITALS: BP 111/47; PULSE 63; RESP 18; TEMP 36.8; O2SAT 93
== END 2025-06-22 15:50 | disposition home or self-care (01) ==
PROVIDERS: Emergency Provider Emergency Medicine; PCP Internal Medicine
DX: J44.1 Chronic obstructive pulmonary disease with (acute) exacerbation (principal); J90 Pleural effusion, not elsewhere classified; R06.02 Shortness of breath; R05.9 Cough, unspecified; J44.9 Chronic obstructive pulmonary disease, unspecified; I44.7 Left bundle-branch block, unspecified; D64.9 Anemia, unspecified; Z79.899 Other long term (current) drug therapy; Z03.818 Encounter for observation for suspected exposure to other biological agents ruled out
CPT/HCPCS: 71250; 80048; 80076; 82803; 83605; 83735; 83880; 84145; 84484; 85025; 86140; 87040; 87637; 93005; 94640; 96374; 96375; 99284; 99285; J0696; J1938; J2919

== ENCOUNTER → 2025-06-22 10:17 | Outpatient (BNV) | payer MEDICARE, OTHER, SELFPAY | PROVIDERS: Emergency Provider Emergency Medicine; PCP Internal Medicine; Visit Provider Radiology Diagnostic Radiology | DX: R06.00 Dyspnea, unspecified (principal) | CPT/HCPCS: 71250 ==

== ENCOUNTER → 2025-06-22 10:17 | Outpatient (BNV) | payer MEDICARE, OTHER, SELFPAY | PROVIDERS: Emergency Provider Emergency Medicine; PCP Internal Medicine; Visit Provider Internal Medicine Cardiovascular Disease | DX: I44.7 Left bundle-branch block, unspecified (principal) | CPT/HCPCS: 93010 ==

== ENCOUNTER 2025-07-13 16:24 | Emergency (ER) | payer MEDICARE, OTHER, SELFPAY ==
[2025-07-13 16:37] VITALS: BP 150/67; PULSE 62; RESP 17; TEMP 36.9; O2SAT 97; BMI 27.1
--- NOTE | 2025-07-13 16:41 | ED.GENADULT ---
HPI - General Adult General Chief complaint: Skin/Abscess/Foreign Body Stated complaint: right nostril infection Time Seen by Provider: 07/13/25 16:45 Source: patient Limitations: no limitations History of Present Illness HPI narrative: 79-year-old male presents for evaluation of painful, swollen area inside his right naris. Patient states it has been going on for the proximally 4 days. He has been using antibacterial soap and water to clean this area. He is here today because of continued symptoms. He has brought with him mupirocin ointment which he has used in the past for similar issue. He denies any fevers chills nausea or vomiting. No nasal or no swelling. He denies any trauma. He no difficulty breathing. He is otherwise feeling well. Related Data Home Medications ?Medication ?Instructions ?Recorded ?Confirmed atorvastatin 20 mg tablet 20 mg PO DAILY 08/27/20 06/13/25 multivitamin 1 tab PO DAILY 10/02/20 06/13/25 budesonide-formoterol HFA 80 1 puff inhalation BID COPD 02/25/25 06/13/25 mcg-4.5 mcg/actuation aerosol inhaler (Symbicort) cranberry extract 157.5 1 cap PO 02/25/25 06/13/25 ry-s-wbimmml 500 mg capsule wdjtoauunik-xfaighxxb-zev C-Mn 500 2 cap PO BID 02/25/25 06/13/25 mg-400 mg capsule montelukast 10 mg tablet 10 mg PO BEDTIME 02/25/25 06/13/25 albuterol sulfate 90 mcg/actuation 2 puff inhalation Q6-8H PRN 06/13/25 06/13/25 aerosol inhaler shortness of breath or wheezing or cough Previous Rx's ?Medication ?Instructions ?Recorded trazodone 50 mg tablet 25 - 50 mg (0.5 - 1 x 50 mg) PO 06/13/25 BEDTIME PRN sleep #90 tabs azithromycin 250 mg tablet See Rx Instructions PO .COMPLEX #6 06/18/25 tabs cefuroxime axetil 500 mg tablet 500 mg PO BID 7 days #14 tabs 06/22/25 furosemide 20 mg tablet (Lasix) 20 mg PO DAILY #3 tabs 06/22/25 prednisone 20 mg tablet 40 mg (2 x 20 mg) PO DAILY 5 days 06/22/25 #10 tabs mirabegron 25 mg tablet,extended 25 mg PO DAILY 30 days #30 tabs 06/24/25 release 24 hr (Myrbetriq) levothyroxine 200 mcg tablet 200 mcg PO DAILY #90 tabs 07/11/25 Allergies Allergy/AdvReac Type Severity Reaction Status Date / Time tamsulosin (TAMSULOSIN) Allergy Unknown HIVES Verified 07/13/25 16:41 Latex, Natural Rubber AdvReac Severe hives Verified 07/13/25 16:41 adhesive AdvReac Hives Verified 07/13/25 16:41 Review of Systems Review of Systems: Yes all other systems are reviewed and are negative ENT: Reports as per HPI, Denies mouth pain, Denies nasal congestion and Denies nasal discharge [facility] Past Medical History Medical History Hypothyroidism Thyroid disease Frequent UTI Elevated cholesterol Murmur LBBB (left bundle branch block) Bronchitis Pulmonary nodule less than 6 mm in diameter with low risk for malignant neoplasm COPD (chronic obstructive pulmonary disease) Pulmonary fibrosis Surgical History Hx of colonoscopy (~03/10/25) H/O inguinal hernia repair Family History Family History Father Emphysema lung Mother No problems noted. 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 Patient Tobacco Use Status: Former Tobacco user e-Cigarette/Vaping Use: Never Used Advance Directives: No Advance Directives Information Provided: Yes Do you have a plan to hurt others: No Plan service: Yes Current occupational status: retired Current occupation: works for [employer] Cognitive needs: No Hearing needs: No Vision needs: No Physical Exam ED Vital Signs: Vital Signs - 24 hr 07/13/25 16:37 07/13/25 17:04 Temperature 98.4 F 98.4 F Pulse Rate 62 62 Respiratory Rate 17 17 Blood Pressure 150/67 H 150/67 H Pulse Oximetry 97 97 Oxygen Delivery Method Room Air Room Air BMI result Body Mass Index 27.1 Const General: alert and awake [facility] Other: Nares are patent bilaterally. No evidence of epistaxis. No septal hematoma. There is a pinpoint area to the lateral aspect of the right nare. There is a small scabbed area without any discharge or induration. No active discharge. There was no external erythema or edema. Oropharynx is moist. No lesions to the hard palate. Neck Other: No lymphadenopathy Medical Decision Making Medical Decision Making MDM Narrative: 79-year-old male with healing lesion to the inside of the right nare. No indication for I and D or obvious abscess at this time. He is hemodynamically stable. There was no secondary signs of infection to the skin. Patient has the mupirocin ointment which he will continue to use. Reviewed all discharge instructions. No further questions at this time. Differential Diagnosis Differential Diagnoses: The differential diagnosis associated with the presentation includes Abscess Cellulitis Folliculitis Edema Discharge Plan Discharge Clinical Impression: Abrasion of nose with infection Qualifiers: Encounter type: initial encounter Qualified Code(s): S00.31XA - Abrasion of nose, initial encounter Patient Disposition: Home, Self-Care Instructions: MRSA (Methicillin-Resistant Staphylococcus Aureus) (ED), Abrasion (ED) Additional Instructions: Keep the area clean and dry in the right side of your nose. You may use the mupirocin ointment to the affected area twice a day for 10 days. Watch for any development of redness, swelling, discharge, or any other concern return immediately to the emergency department. Follow-up with your primary care provider. Call this week to schedule a follow-up appointment. Return to the emergency department if you have any worsening of symptoms, or any concerns. Get well soon! Prescriptions: No Action azithromycin 250 mg tablet See Rx Instructions PO .COMPLEX Qty: 6 0RF Rx Instructions: take 500 mg today (day 1), then 250 mg for 4 days (days 2-5) PO mirabegron [Myrbetriq] 25 mg tablet extended release 24 hr 25 mg PO DAILY 30 Days Qty: 30 1RF levothyroxine 200 mcg tablet 200 mcg PO DAILY Qty: 90 0RF multivitamin Tablet 1 tab PO DAILY cefuroxime axetil 500 mg tablet 500 mg PO BID 7 Days Qty: 14 0RF furosemide [Lasix] 20 mg tablet 20 mg PO DAILY Qty: 3 0RF prednisone 20 mg tablet 40 mg PO DAILY 5 Days Qty: 10 0RF montelukast 10 mg tablet 10 mg PO BEDTIME budesonide-formoterol [Symbicort] 80-4.5 mcg/actuation HFA aerosol inhaler 1 puff inhalation BID guhrvbehseh-fivnmminh-apa C-Mn 500-400 mg Capsule 2 cap PO BID cranberry skugofa-o-lcqlxcx 157.5-500 mg Capsule 1 cap PO atorvastatin 20 mg tablet 20 mg PO DAILY albuterol sulfate 90 mcg/actuation HFA aerosol inhaler 2 puff inhalation Q6-8H PRN (Reason: shortness of breath or wheezing or cough) trazodone 50 mg tablet 25 - 50 mg PO BEDTIME PRN (Reason: sleep) Qty: 90 1RF Interventions: ED Discharge Assessment Last Done: 07/13/25 17:04 Discharge Date/Time: 07/13/25 17:04 Print Language: Jamaican
[2025-07-13 17:04] VITALS: BP 150/67; PULSE 62; RESP 17; TEMP 36.9; O2SAT 97
--- NOTE | 2025-07-13 17:04 | PC.NURSE ---
d/c'd from [facility] by provider.
== END 2025-07-13 17:04 | disposition home or self-care (01) ==
PROVIDERS: Emergency Provider Emergency Medicine; PCP Internal Medicine
DX: S00.31XA Abrasion of nose, initial encounter (principal); X58.XXXA Exposure to other specified factors, initial encounter; Y93.9 Activity, unspecified; Y92.9 Unspecified place or not applicable; Y99.9 Unspecified external cause status
CPT/HCPCS: 99282

== ENCOUNTER 2025-08-20 13:08 | Outpatient (AMB) | payer MEDICARE, OTHER, SELFPAY ==
--- NOTE | 2025-08-20 13:09 | A.OFFPC_ITS ---
Vital Signs 08/20/25 13:11 Height 5 ft 7 in Weight 78.018 kg BMI 26.9 BP 110/44 L Blood Pressure Location Lt brachial Position Sitting Respiration 18 Pulse 68 Pulse Source Pulse Oximeter Temp 98.8 F Temp Source Temporal Artery Scan Pulse Oximetry (%) 95 Oxygen Delivery Method Room Air Intake Visit Reasons: 6 Month F/U Conflict Resolution Professional Required: No Accompanied by: Self / Same As Patient Allergies tamsulosin (TAMSULOSIN) Allergy (Unknown, Verified 08/20/25 13:09) HIVES Latex, Natural Rubber Adverse Reaction (Severe, Verified 08/20/25 13:09) hives adhesive Adverse Reaction (Verified 08/20/25 13:09) Hives Tobacco use date assessed: 02/19/25 Fall risk assessment: No Falls in past year Last assessed Fall Risk: 08/20/25 Dental Screening Dental Screen Date: 08/20/25 Did you have a dental visit in the last 12 months?: Yes Did you have a dental problem in the last 6 months where you did not have access to dental care?: No Was dental information given to patient?: Patient has dentist HPI HPI Comments History of Present Illness Details 79-year-old male with history of hyperli pidemia, hypothyroidism, asthma presents to the office today for management of chronic conditions and evaluation Hypothyroidism-on levothyroxine Hyperlipidemia-on atorvastatin 20 mg daily. Last LDL 89 COPD/pulmonary nodules-on Symbicort for maintenance, albuterol p.r.n. follows with pulmonology- [facility]. Recent CT of the chest 05/2025 did show slight increase in nodule size at 7 point mm, low risk for malignancy. Twelve month follow-up advised BPH-trospium discontinued as this was likely causing patient's dry mouth which he was concerned about previously. On cranberry extract/D mannose. Following with Dr. Leiva Aortic valve stenosis-following with Cardiology. Likely will need TAVR Concerns: Previous concern of claustrophobia primarily occurring on the road has resolved. He states that he has been more mindful, and no longer experiences symptoms Health maintenance: Last colonoscopy 03/2025, 2 year follow-up advised. ROS: See HPI EXAM: Constitutional - Awake and Alert, No apparent distress Eyes - PERRL Cardiovascular - S1S2, RRR, No edema . IV/ systolic ejection murmur Respiratory - Normal lung expansion, Normal respiratory effort, No respiratory distress Extremities - no calf tenderness bilaterally, no swelling Skin - Warm/Dry Neurological - Alert & oriented x3 Psychological - Appropriate affect [facility] Medical History Hypothyroidism Thyroid disease Frequent UTI Elevated cholesterol Murmur LBBB (left bundle branch block) Bronchitis Pulmonary nodule less than 6 mm in diameter with low risk for malignant neoplasm COPD (chronic obstructive pulmonary disease) Pulmonary fibrosis Surgical History Hx of colonoscopy (~03/10/25) H/O inguinal hernia repair Family History Father Emphysema lung Mother No problems noted. 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 How often do you have a drink containing alcohol?: Monthly or less 2. How many drinks containing alcohol do you have on a typical day when you are drinking?: 1 or 2 Total Score: 1 JANAE-7 AMB Questionnaire JANAE-7 Date JANAE - 7 assessed: 02/19/25 Source: Developed by Drs. Mati Holland, Claritza Garcia, Jasson Hannon and colleagues, with an educational celso from [employer]. Physical exam (Primary Care) Vital Signs: Last Vital Signs Temp 98.8 F 08/20/25 13:11 Pulse 68 08/20/25 13:11 Resp 18 08/20/25 13:11 BP 110/44 L 08/20/25 13:11 Pulse Ox 95 08/20/25 13:11 Oxygen Delivery Method Room Air 08/20/25 13:11 BMI result Body Mass Index 26.9 Tobacco/Smoking Status: Tobacco use Status Tobacco use date assessed 02/19/25 08/20/25 13:19 Patient Tobacco Use Status Former Tobacco user 08/20/25 13:19 e-Cigarette/Vaping Use Never Used 08/20/25 13:19 Thrive Assessment: Date of Thrive Assessment Date Thrive assessed 02/19/25 08/20/25 13:19 Advance Care Planning discussion: Exists, not on file Date of discussion: 08/20/25 Who was present: pt Forms completed: MOLST Time spent: 1-15 minutes, not on file Coding Level of Care Code Est Pt Level 4 (24566) Complex EM visit Add On G2211 Diagnoses COPD (chronic obstructive pulmonary disease) J44.9 Pulmonary fibrosis J84.10 Hypothyroidism E03.9 Elevated cholesterol E78.00 Additional Codes Vital Signs *Quality* - Advance Care Planning discussion: Exists, not on file ([id number]) Vital Signs *Quality* - Time spent: 1-15 minutes, not on file ([id number]) Assessment & Plan Assessment & Plan (1) COPD (chronic obstructive pulmonary disease): Comment: Mild to moderate, chronic, has been well controlled and stable. There was more discussion about his medication. He is using medicine from [facility], ( budesonide 200 mcg - Formoterol 6 mcg. ) 2 puffs b.i.d.. And albuterol 2 puffs Q 6 hours only p.r.n. Recently treated with a course of prednisone for 5 days, , Z-Reymundo, and Augmentin for 1 week. Now okay Code(s): J44.9 - Chronic obstructive pulmonary disease, unspecified Category: Medical Plan: Controlled. Continue maintenance inhalers and albuterol p.r.n.. Follow-up with pulmonology as scheduled next month. Advised to review CT from ED with dry goods inspector-12 month follow-up CT recommended (2) Pulmonary fibrosis: Comment: HE HAS MINIMAL FIBROTIC CHANGES IN THE APICAL AREAS AND ALSO AT THE BASES. CLINICALLY NOT SIGNIFICANT, Code(s): J84.10 - Pulmonary fibrosis, unspecified Category: Medical Plan: Follow-up with pulmonology as scheduled (3) Hypothyroidism: Code(s): E03.9 - Hypothyroidism, unspecified Category: Medical Plan: T last TSH normal. Continue levothyroxine (4) Elevated cholesterol: Code(s): E78.00 - Pure hypercholesterolemia, unspecified Category: Medical Plan: LDL at goal. Continue statin. Plan Follow-up in 6 months. Labs to be completed several days prior to visit Orders: Orders Basic Metabolic Panel 6 Months E03.9 - Hypothyroidism, unspecified, E78.00 - Pure hypercholesterolemia, unspecified Lipid Panel 6 Months E03.9 - Hypothyroidism, unspecified, E78.00 - Pure hypercholesterolemia, unspecified TSH reflex Free T4 6 Months E03.9 - Hypothyroidism, unspecified, E78.00 - Pure hypercholesterolemia, unspecified
[2025-08-20 13:11] VITALS: BP 110/44; PULSE 68; RESP 18; TEMP 37.1; O2SAT 95; BMI 26.9
--- OUTSIDE RECORDS SUMMARY | 2025-08-20 15:31 | XMS_ITS | Data Portability ---
Author Organization [place] - [facility], Allergy Address [address] [place] [id number] Care Team Providers Care Wilton Weaver Name Role Phone MARIA TERESA, KARTIK Primary [...] nystatin 100,000 unit/mL oral suspension 2024 025 [facility][id number], [address] [facility] [place], [address], 16:21:04 Patient TargetsNo targets recorded. Patient InstructionsNo instructions recorded. Reason for Referral None Reported. Problems Name Problem SNOMED Code Status Onset Date Resolution Date Notes Provider Name and Address Organization Details Recorded Time Candidiasis of mouth 33195562 Active 025 EDWIN LUNA MD [address] [facility] [address], [place], [phone], [facility] - [facility] 16:20:16 Dysphonia 29601628 Active 025 EDWIN LUNA MD [address] [facility] [address], [place], [address], [facility] - [facility] 16:22:25 Problem Notes None recorded. Procedures Surgical History Date Name Laterality Status Provider Name and Address Organization Details Recorded Time 05/02/20 Fiberoptic Laryngoscopy (Comprehensive) completed EDWIN LUNA MD [address] [address], [place], [phone], [facility] 05/06/2025 19:04:23 hernia repair completed Kylee Colunga [facility] 05/02/2025 16:11:59 Imaging Results None recorded. Procedure Notes None recorded. Medical Equipment None Reported. Allergies Allergen ID Allergen Name Allergen Category Reaction Reaction Severity Criticality Documentation Date Start Date Code Code System Note Provider Name and Address Organization Details Recorded Time 223876 tamsulosi n medicatio n Not available Not available Not available 05/02/2025 59778 RxNorm Kylee cabello [place] [facility] 16:09:48 [id number] latex environme nt,medica tion Not available Not available Not available 05/02/2025 21598 91 RxNorm Kylee cabello [place] [facility] 16:09:55 Medications Name Sig Start Date [...] Updated DateTime 05/02/2025 170.18 cm 27.3 kg/m2 31099.07 g Kylee Keanu [place] - [facility] 05/02/2025 16:09:35 Social History None recorded. Functional Status None recorded. Mental Status None recorded. Family History Nothing Reported. Medical History Condition Response Thyroid Problems Y Asthma Y Past Encounters Encounter ID Performer Location Encounter Start Date Encounter Closed Date Diagnosis/Indication Diagnosis SNOMED-CT Code Diagnosis ICD10 Code Diagnosis IMO Codes Diagnosis Note [id number] EDWIN LUNA MD [facility] [address] [phone] 05/02/2025 15:35:18 05/14/2025 13:41:52 Candidiasis of mouth 40482334 B37.0 159610 Dysphonia 63398199 R49.0 09395 Health Concerns Section Related Observation LastModified by Organization Detai ls LastModified Time None Recorded Concern Status LastModified by Organization Details LastModified Time None Recorded Advance Directives Directive None Recorded Payers Insurance Date Sequence Insurance Name Policy Number Policy Turcios Covered Member ID Turc[employer] Member ID Guarantor Name 05/14/2025 2 [employer] (MEDICARE SUPPLEMENT) Jarad Bishop [id number] Jarad Bishop 05/02/2025 1 [place] [employer] Jarad Bishop [id number] Jarad Bishop Notes Date Note Type Note Provider Name and Address Organization Details Recorded Time 05/02/2025 text/html 79-year-old male presents today for dysphonia. Last fall/ winter getting worseNo sore throatNo trouble swallowingNo ear painNo weight lossNo heartburnsome allergies, avoids meds Lots of waterUses voice average amount occasional throat clearing COPD mild, on symbicort for years EDWIN LUNA MD [address] [place] [address], [phone], [place] - [facility] 05/06/2025 19:05:55
== END 2025-08-20 13:46 | disposition home or self-care (01) ==
LOC: HO.HMCHD 13:09
PROVIDERS: PCP Internal Medicine; Visit Provider Physician Assistant
DX: J44.9 Chronic obstructive pulmonary disease, unspecified (principal); J84.10 Pulmonary fibrosis, unspecified; E03.9 Hypothyroidism, unspecified; E78.00 Pure hypercholesterolemia, unspecified; Z00.00 Encounter for general adult medical examination without abnormal findings

== ENCOUNTER → 2025-08-20 13:08 | Outpatient (BNVA) | payer MEDICARE, OTHER, SELFPAY | PROVIDERS: PCP Internal Medicine; Visit Provider Physician Assistant | DX: J44.9 Chronic obstructive pulmonary disease, unspecified (principal); J84.10 Pulmonary fibrosis, unspecified; E03.9 Hypothyroidism, unspecified; E78.00 Pure hypercholesterolemia, unspecified; N40.0 Benign prostatic hyperplasia without lower urinary tract symptoms; I35.0 Nonrheumatic aortic (valve) stenosis; Z79.899 Other long term (current) drug therapy | CPT/HCPCS: 99212 ==

== ENCOUNTER 2025-09-17 11:00 | Outpatient (AMB) | payer MEDICARE, OTHER, SELFPAY ==
--- NOTE | 2025-09-17 11:05 | MHC.OFFVIS ---
Vital Signs 09/17/25 11:06 Height 5 ft 7 in Weight 164 lb BMI 25.7 BP 140/68 H Blood Pressure Location Lt brachial Position Sitting Pulse 68 Pulse Source Pulse Oximeter Pulse Oximetry (%) 96 Oxygen Delivery Method Room Air Intake Visit Reasons: Shortness of breath Intake Note: pt is here for follow up and had a lot going on in May with his breathing, and has a vocal cord question, raspy cleared by ENT. Jelly Filter Tender Required: No I&C Technician: I&C Technician offered & declined Allergies tamsulosin (TAMSULOSIN) Allergy (Unknown, Verified 09/17/25 11:24) HIVES Latex, Natural Rubber Adverse Reaction (Severe, Verified 09/17/25 11:24) hives adhesive Adverse Reaction (Verified 09/17/25 11:24) Hives Medication List - Last Reconciled 09/17/25 by Jose Vinson MD albuterol sulfate 90 mcg/actuation 2 puffs inhalation Q6-8H PRN atorvastatin 20 mg PO DAILY budesonide-formoterol 80-4.5 mcg/actuation (Symbicort) 1 puff inhalation BID cranberry txnllym-u-vtkssss 157.5-500 mg 1 cap PO qpvbdusedoz-idlopvkrz-fdf C-Mn 500-400 mg 2 caps PO BID levothyroxine 200 mcg PO DAILY montelukast 10 mg PO BEDTIME multivitamin 1 tab PO DAILY Do you need a note to return to daycare/school/sports/work: No HPI HPI Shortness of breath: Details: THIS 79 YEARS OLD GENTLEMAN WHO IS STILL WORKING AT [employer], IS HERE FOR 6 MONTHS FOLLOW-UP. IN MAY THIS YEAR HE HAD AN ACUTE EXACERBATION DUE TO EXPOSURE TO LOT OF SMOKE IN THE AIR. TREATED FOR ACUTE EXACERBATION WITH COURSE OF ANTIBIOTIC AND PREDNISONE,. HE HAS HAD HUSKY LEWIS AND WAS WORRIED ABOUT SOME. POLYPS ON THE VOCAL CORD SO HAD ENT EVALUATION ALONG WITH ENDOSCOPY AND WAS TOLD THAT THE VOCAL CORDS WERE CLEAR. EVERY NOW AND THEN HE DOES GET HUSKY LEWIS AND THIS IS PROBABLY RELATED TO ALLERGIES. BREATHING HAS BEEN STABLE LONG HE HAS HIS BUDESONIDE INHALER . FROM THE [facility] Medical History Hypothyroidism Thyroid disease Frequent UTI Elevated cholesterol Murmur LBBB (left bundle branch block) Bronchitis Pulmonary nodule less than 6 mm in diameter with low risk for malignant neoplasm COPD (chronic obstructive pulmonary disease) Pulmonary fibrosis Surgical History Hx of colonoscopy (~03/10/25) H/O inguinal hernia repair Family History Father Emphysema lung Mother No problems noted. 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 Patient Tobacco Use Status: Former Tobacco user Years Smoked: 3 years e-Cigarette/Vaping Use: Never Used service: Yes Current occupational status: retired Current occupation: works for [employer] Cognitive needs: No Hearing needs: No Vision needs: No Review of Systems Const All systems reviewed & are unremarkable except as noted in HPI and below Eyes Reports no additional complaints ENT Reports nasal congestion (MILD OFF AND ON) Card Reports no additional complaints Resp Reports as per HPI GI Reports no additional complaints Reports no additional complaints Musc Reports no additional complaints Skin/Breast Reports system reviewed and no additional complaints, except as documented Neuro Reports no additional complaints Psych Reports no additional complaints Endo Reports no additional complaints Physical Exam Vital Signs: Last Vital Signs Pulse 68 09/17/25 11:06 BP 140/68 H 09/17/25 11:06 Pulse Ox 96 09/17/25 11:06 Oxygen Delivery Method Room Air 09/17/25 11:06 BMI result Body Mass Index 25.7 Const General: comfortable (But does have frequent cough), no acute distress, alert and awake Orientation/consciousness: patient oriented x3 HEENT Head: Yes normal to inspection General nose exam: No nasal polyps present, No nasal discharge present and Other nasal findings present (Mild nasal congestion) Face and sinus: Yes sinuses nontender Mouth: oropharynx normal Throat: Yes posterior oropharynx normal Eyes General: appearance normal, both eyes and all related structures Neck Neck: Yes normal visual inspection, Yes no lymphadenopathy, Yes trachea midline and Yes no JVD Thyroid: Thyroid normal Chest Chest palpation & inspection: normal inspection of the chest, normal palpation of entire chest wall and no tenderness Resp Other: Percussion note resonant, breath sounds are slightly distant on both sides,, Lungs are clear today and no wheezes or rhonchi are heard . Cardio Palpation: normal PMI Rate: regular rate Rhythm: regular rhythm Heart sounds: no gallops and no murmurs GI Palpation (GI): Soft to palpation, nontender, No hepatosplenomegaly present and no masses Auscultation: normal bowel sounds Back/Spine/Pelvis Thoracic/Lumbar Spine: thoracic and lumbar spine normal to inspection Skin General skin exam: no rashes or lesions noted Neuro General: patient oriented x3 and no focal motor deficits Cranial nerves: Yes CN's II-XII intact bilaterally Extrem General: Yes normal to inspection, Yes no clubbing, cyanosis or edema and Yes no calf tenderness Psych Appearance: grossly normal and well kempt Speech and movement: Normal speech and movement present Results Reviewed Results Reviewed: CT SCAN OF CHEST ON 06/22/2025 1. Mild pulmonary interstitial edema and new small pleural effusion, mild cardiomegaly, concerning for congestive heart failure. 2. Several stable pulmonary nodules up to [address] chest follow-up in 12 month. 3. Dilated pulmonary trunk, can be seen in the setting of pulmonary arterial hypertension. 4. Atherosclerotic disease. This document has been electronically signed by: Kelly Simmons MD on 06/22/2025 12:18:50 Assessment & Plan Assessment & Plan (1) COPD (chronic obstructive pulmonary disease): Comment: Mild to moderate, chronic, has been well controlled and stable. HAD AN ACUTE EXACERBATION OF HIS THE ASTHMA IN MAY 2025, TREATED WITH A COURSE OF ANTIBIOTIC AND PREDNISONE . HAS BEEN. STABLE AFTERWARDS There was more discussion about his medication. He is using medicine from [facility], ( budesonide 200 mcg - Formoterol 6 mcg. ) 2 puffs b.i.d.. And albuterol 2 puffs Q 6 hours only p.r.n. Code(s): J44.9 - Chronic obstructive pulmonary disease, unspecified Category: Medical Plan: CONTINUE TO USE BUDESONIDE 80-4.52 PUFFS B.I.D. AND USE ALBUTEROL HFA 2 PUFFS Q 6 HOURS ONLY P.R.N. (2) Pulmonary fibrosis: Comment: HE HAS MINIMAL FIBROTIC CHANGES IN THE APICAL AREAS AND ALSO AT THE BASES. CLINICALLY NOT SIGNIFICANT, Code(s): J84.10 - Pulmonary fibrosis, unspecified Category: Medical Plan: NO NEED OF ANY TREATMENT (3) Pulmonary nodule less than 6 mm in diameter with low risk for malignant neoplasm: Comment: He has fine nodules, on both sides, less than 5-7 mm in size. most likely inflammatory in nature. Code(s): R91.1 - Solitary pulmonary nodule; Z91.89 - Other specified personal risk factors, not elsewhere classified Category: Medical Plan: BECAUSE OF HIS PAST HISTORY OF SMOKING HE MAY NEED TO BE MONITORED, CLOSELY. NOW PLAN TO REPEAT HIS CT SCAN IN MAY 2026 . Coding Level of Care Code Est Pt Level 3 (12490) Diagnoses COPD (chronic obstructive pulmonary disease) J44.9 Pulmonary fibrosis J84.10 Pulmonary nodule less than 6 mm in diameter with low risk for malignant neoplasm R91.1; Z91.89
[2025-09-17 11:06] VITALS: BP 140/68; PULSE 68; O2SAT 96; BMI 25.7
--- OUTSIDE RECORDS SUMMARY | 2025-09-17 14:42 | XMS_ITS | Data Portability ---
Author Organization [place] - [facility], Allergy Address [address] [place] [phone] Care Team Providers Care Bale Breaker Operator Name Role Phone MARIA TERESA, KARTIK Primary [...] nystatin 100,000 unit/mL oral suspension 2024 025 [facility] #[id number], [address] [facility], [address], 16:21:04 Patient TargetsNo targets recorded. Patient InstructionsNo instructions recorded. Reason for Referral None Reported. Problems Name Problem SNOMED Code Status Onset Date Resolution Date Notes Provider Name and Address Organization Details Recorded Time Candidiasis of mouth 43464365 Active 025 EDWIN LUNA MD 100 [facility] [address], [place], [address], [facility] - [facility] 16:20:16 Dysphonia 21977488 Active 025 EDWIN LUNA MD 100 [facility] [address], [place], [address], [facility] - [facility] 16:22:25 Problem Notes None recorded. Procedures Surgical History Date Name Laterality Status Provider Name and Address Organization Details Recorded Time 05/02/20 Fiberoptic Laryngoscopy (Comprehensive) completed EDWIN LUNA MD [address] [address], [place], [address], [facility] 05/06/2025 19:04:23 hernia repair completed Kylee Colunga [facility] 05/02/2025 16:11:59 Imaging Results None recorded. Procedure Notes None recorded. Medical Equipment None Reported. Allergies Allergen ID Allergen Name Allergen Category Reaction Reaction Severity Criticality Documentation Date Start Date Code Code System Note Provider Name and Address Organization Details Recorded Time 462799 tamsulosi n medicatio n Not available Not available Not available 05/02/2025 71149 RxNorm Kylee cabello [place] [facility] 16:09:48 922494 latex environme nt,medica tion Not available Not available Not available 05/02/2025 88466 91 RxNorm Kylee cabello [place] [facility] 16:09:55 Medications Name Sig Start Date Stop [...] Updated DateTime 05/02/2025 170.18 cm 27.3 kg/m2 60983.07 g Kylee Keanu [place] - [facility] 05/02/2025 16:09:35 Social History None recorded. Functional Status None recorded. Mental Status None recorded. Family History Nothing Reported. Medical History Condition Response Thyroid Problems Y Asthma Y Past Encounters Encounter ID Performer Location Encounter Start Date Encounter Closed Date Diagnosis/Indication Diagnosis SNOMED-CT Code Diagnosis ICD10 Code Diagnosis IMO Codes Diagnosis Note [id number] EDWIN LUNA MD [facility] [address] [address] 05/02/2025 15:35:18 05/14/2025 13:41:52 Candidiasis of mouth 39086560 B37.0 444119 Dysphonia 62057873 R49.0 84600 Health Concerns Section Related Observation LastModified by Organization Detai ls LastModified Time None Recorded Concern Status LastModified by Organization Details LastModified Time None Recorded Advance Directives Directive None Recorded Payers Insurance Date Sequence Insurance Name Policy Number Policy Turcios Covered Member ID Turcios Member ID Guarantor Name 05/14/2025 2 [employer] (MEDICARE SUPPLEMENT) Jarad Bishop [id number] Jarad Bishop 05/02/2025 1 [place]MENT [place] Jarad Bishop [id number] Jarad Bishop Notes Date Note Type Note Provider Name and Address Organization Details Recorded Time 05/02/2025 text/html 79-year-old male presents today for dysphonia. Last fall/ winter getting worseNo sore throatNo trouble swallowingNo ear painNo weight lossNo heartburnsome allergies, avoids meds Lots of waterUses voice average amount occasional throat clearing COPD mild, on symbicort for years EDWIN LUNA MD [address] [place] [address], [phone], [place] - [facility] 05/06/2025 19:05:55
== END 2025-09-17 11:23 | disposition home or self-care (01) ==
LOC: HO.HPS 11:00
PROVIDERS: PCP Internal Medicine; Visit Provider Internal Medicine
DX: J44.9 Chronic obstructive pulmonary disease, unspecified (principal); J84.10 Pulmonary fibrosis, unspecified; R91.1 Solitary pulmonary nodule; Z91.89 Other specified personal risk factors, not elsewhere classified
CPT/HCPCS: 99213

== ENCOUNTER → 2025-09-17 11:00 | Outpatient (BNVA) | payer MEDICARE, OTHER, SELFPAY | PROVIDERS: PCP Internal Medicine; Visit Provider Internal Medicine | DX: J44.9 Chronic obstructive pulmonary disease, unspecified (principal); J84.10 Pulmonary fibrosis, unspecified; R91.8 Other nonspecific abnormal finding of lung field; Z87.891 Personal history of nicotine dependence | CPT/HCPCS: 99212 ==

== ENCOUNTER 2025-10-07 10:09 | Outpatient (AMB) | payer MEDICARE, OTHER, SELFPAY ==
--- NOTE | 2025-10-07 10:29 | A.OFFVIS_ITS ---
Intake Visit Reasons: 6 month f/u Intake Note: Patient is present for 6M F/U Urology Medication:Trospium, Cranberry Antibiotic Allergy:NONE Blood Thinner:NONE PVR: 182mls Senior Payroll Specialist Required: No Accompanied by: Self / Same As Patient Allergies tamsulosin (TAMSULOSIN) Allergy (Unknown, Verified 10/07/25 10:30) HIVES Latex, Natural Rubber Adverse Reaction (Severe, Verified 10/07/25 10:30) hives adhesive Adverse Reaction (Verified 10/07/25 10:30) Hives HPI Comments Details: Izaiah pool is a pleasant male. He is a patient of Dr. Chapman. He is seen for the following urologic condition - BPH - urethral stricture - overactive bladder Six-month follow-up PVR today high Continues dilatation 2 times per month Prior history UTI - uses on demand ciprofloxacin Ciprofloxacin refilled with nitrofurantoin Came off tropsium since cause dry mouth Lower urinary tract symptoms well controlled Urgency and frequency Response to tropsium taken late afternoon - off tropsium Urethral stricture patency maintained by use catheter 2 times per month - preference is 18 Sami coude olive tip - previously had difficulty with straight catheters expected to require catheterization to be maintained for indefinite future will continue to track PSA PSA 05/17 0.2, . 0.4, 12/19 0.8 [facility] Medical History Hypothyroidism Thyroid disease Frequent UTI Elevated cholesterol Murmur LBBB (left bundle branch block) Bronchitis Pulmonary nodule less than 6 mm in diameter with low risk for malignant neoplasm COPD (chronic obstructive pulmonary disease) Pulmonary fibrosis Surgical History Hx of colonoscopy (~03/10/25) H/O inguinal hernia repair Family History Father Emphysema lung Mother No problems noted. 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 Patient Tobacco Use Status: Former Tobacco user Years Smoked: 3 years e-Cigarette/Vaping Use: Never Used service: Yes Current occupational status: retired Current occupation: works for [employer] Cognitive needs: No Hearing needs: No Vision needs: No Review of Systems Const Denies chills and Denies fever(s) Card Reports no additional complaints and Denies syncope Resp Denies cough GI Denies abdominal pain and Denies heartburn Reports as per HPI and Denies change in libido Neuro Denies syncope Psych Denies change in libido Endo Denies change in libido Physical Exam Const General: cooperative, healthy appearing, comfortable and no acute distress Orientation/consciousness: patient oriented x3 HEENT Face and sinus: Yes normal facial exam Mouth: moist mucous membranes Neck Neck: Yes normal visual inspection, Yes full ROM and Yes trachea midline Chest Chest palpation & inspection: normal inspection of the chest Resp Effort & Inspection: normal respiratory effort, able to speak in complete sentences and no respiratory distress GI Inspection: Yes normal to inspection Back/Spine/Pelvis Cervical Spine: normal cervical lordosis Thoracic/Lumbar Spine: thoracic and lumbar spine normal to inspection Skin General skin exam: no rashes or lesions noted Neuro General: patient oriented x3, gait normal, tone normal and moves all extremities Extrem General: Yes normal to inspection and Yes capillary refill normal Office Procedures Post Void Residual Post Residual Void Post Void Residual (PVR): 182 18080-Scew Void Residual by ultrasound Results AMB Urinalysis, Automated UA Leukoctes 15 Thompson/uL Last Edit by Deyanira Szymanski [facility] on 10/07/25 10:34 UA Nitrite Negative Last Edit by Deyanira Szymanski [facility] on 10/07/25 10:34 UA Urobilinogen 0.2 mg/dL Last Edit by Deyanira Szymanski [facility] on 10/07/25 10:34 UA Protein 0 mg/dL Last Edit by Deyanira Szymanski [facility] on 10/07/25 10:34 UA pH 6.0 Last Edit by Deyanira Szymanski [facility] on 10/07/25 10:34 UA Blood 0 Bradley/uL Last Edit by Deyanira Szymanski [facility] on 10/07/25 10:34 UA Specific [place] 1.015 Last Edit by Deyanira Szymanski [facility] on 10/07/25 10:3 4 UA Ketone Negative Last Edit by Deyanira Szymanski [facility] on 10/07/25 10:34 UA Bilirubin 0 mg/dL Last Edit by [facility]zym[facility]ki [facility] on 10/07/25 10:34 UA Glucose 0 mg/dL Last Edit by VARSHA Lamb on 10/07/25 10:34 Results Reviewed Results Reviewed: Laboratory Last Values Urine pH (Auto) 6.0 10/07/25 10:34 Specific [place] (Auto) 1.015 10/07/25 10:34 Urine Protein (Auto) 0 mg/dL 10/07/25 10:34 Glucose (UA)(Auto) 0 mg/dL 10/07/25 10:34 Urine Ketones (Auto) Negative 10/07/25 10:34 Urine Blood (Auto) 0 Bradley/uL 10/07/25 10:34 Urine Nitrite (Auto) Negative 10/07/25 10:34 Urine Bilirubin (Auto) 0 mg/dL 10/07/25 10:34 Urine Urobilinogen (Auto) 0.2 mg/dL 10/07/25 10:34 Leukocyte Esterase (Auto) 15 Thompson/uL 10/07/25 10:34 Assessment & Plan Assessment & Plan (1) Lower urinary tract symptoms due to benign prostatic hyperplasia: Code(s): N40.1 - Benign prostatic hyperplasia with lower urinary tract symptoms Category: Medical (2) Urethral stricture: Code(s): N35.919 - Unspecified urethral stricture, male, unspecified site Category: Medical (3) Frequent UTI: Comment: sees Dr. Leiva Code(s): N39.0 - Urinary tract infection, site not specified Category: Medical Plan Six-month follow-up Medications: Changed From nitrofurantoin macrocrystal 100 mg PO BID 7 days 14 caps 0RF N39.0 - Urinary tract infection, site not specified To nitrofurantoin macrocrystal Take 3 days around dilatation 100 mg PO DAILY 30 caps 1RF 14 days N39.0 - Urinary tract infection, site not specified Refilled ciprofloxacin HCl Take tablet day before, day of and day after catheterization 250 mg PO DAILY 30 tabs 0RF 30 days Patient Instructions: This note is constructed using voice recognition software. While every effort has been made to ensure accuracy demurrage worker errors may have been included. Imaging studies, laboratory and physical exam results were discussed and reviewed in detail. No major barriers to patient understanding were identified. An opportunity to ask questions regarding the treatment plan was provided. All questions were answered. The patient expressed understanding and agreement with the above treatment plan. The patient is aware they should contact our office by phone for worsening of their current condition or the appearance of new urologic symptoms. Compliance is encouraged with any medications and followup testing that is ordered. It is a privilege to participate in the urologic care of your patient. If you have any questions or concerns regarding treatment for the above conditions, or other urologic issues, please do not hesitate to contact me. The office telephone contact is [phone]. Sincerely, Dr Keith Leiva MD, [facility] - Urology Compassionate Specialist Care for the Genitourinary System Coding Level of Care Code Est Pt Level 3 (31959) Complex EM visit Add On G2211 Diagnoses Lower urinary tract symptoms due to benign prostatic hyperplasia N40.1 Urethral stricture N35.919 Frequent UTI N39.0 CPT Codes Post Residual Void - PVR CPT Code: 34468-Zfht Void Residual by ultrasound ([id number])
--- OUTSIDE RECORDS SUMMARY | 2025-10-07 11:39 | XMS_ITS | Data Portability ---
Author Organization [place] - [facility], Allergy Address [address] [place] [address] Care Team Providers Care Wash Tub Machine Operator Name Role Phone MARIA TERESA, KARTIK [...] nystatin 100,000 unit/mL oral suspension 2024 025 [facility]/Pharmacy #[id number], [address] [facility], [address], 16:21:04 Patient TargetsNo targets recorded. Patient InstructionsNo instructions recorded. Reason for Referral None Reported. Problems Name Problem SNOMED Code Status Onset Date Resolution Date Notes Provider Name and Address Organization Details Recorded Time Candidiasis of mouth 83879312 Active 025 EDWIN LUNA MD 100 [facility] 100, [place], [address], [facility] - [facility] 16:20:16 Dysphonia 82273162 Active 025 EDWIN LUNA MD 100 [facility] [address], [place], [address], [facility] - [facility] 16:22:25 Problem Notes None recorded. Procedures Surgical History Date Name Laterality Status Provider Name and Address Organization Details Recorded Time 05/02/20 Fiberoptic Laryngoscopy (Comprehensive) completed EDWIN LUNA MD [address] [address], [place], [address], [facility] 05/06/2025 19:04:23 hernia repair completed Kylee Colunga [facility] 05/02/2025 16:11:59 Imaging Results None recorded. Procedure Notes None recorded. Medical Equipment None Reported. Allergies Allergen ID Allergen Name Allergen Category Reaction Reaction Severity Criticality Documentation Date Start Date Code Code System Note Provider Name and Address Organization Details Recorded Time 158726 tamsulosi n medicatio n Not available Not available Not available 05/02/2025 86303 RxNorm Kylee cabello [place] [facility] 16:09:48 440177 latex environme nt,medica tion Not available Not available Not available 05/02/2025 32042 91 RxNorm Kylee cabello [place] [facility] 16:09:55 Medications Name Sig Start Date [...] Updated DateTime 05/02/2025 170.18 cm 27.3 kg/m2 35279.07 g Kylee Keanu [place] - [facility] 05/02/2025 16:09:35 Social History None recorded. Functional Status None recorded. Mental Status None recorded. Family History Nothing Reported. Medical History Condition Response Thyroid Problems Y Asthma Y Past Encounters Encounter ID Performer Location Encounter Start Date Encounter Closed Date Diagnosis/Indication Diagnosis SNOMED-CT Code Diagnosis ICD10 Code Diagnosis IMO Codes Diagnosis Note [id number] EDWIN LUNA MD [facility] [address] [address] 05/02/2025 15:35:18 05/14/2025 13:41:52 Candidiasis of mouth 21271316 B37.0 769897 Dysphonia 89097796 R49.0 82130 Health Concerns Section Related Observation LastModified by Organization Detai ls LastModified Time None Recorded Concern Status LastModified by Organization Details LastModified Time None Recorded Advance Directives Directive None Recorded Payers Insurance Date Sequence Insurance Name Policy Number Policy Turcios Covered Member ID Turcios Member ID Guarantor Name 05/14/2025 2 [employer] (MEDICARE SUPPLEMENT) Jarad Bishop [id number] Jarad Bishop 05/02/2025 1 [place] Jarad Bishop [id number] Jarad Bishop Notes Date Note Type Note Provider Name and Address Organization Details Recorded Time 05/02/2025 text/html 79-year-old male presents today for dysphonia. Last fall/ winter getting worseNo sore throatNo trouble swallowingNo ear painNo weight lossNo heartburnsome allergies, avoids meds Lots of waterUses voice average amount occasional throat clearing COPD mild, on symbicort for years EDWIN LUNA MD [address] [place] [address], [address], [place] - [facility] 05/06/2025 19:05:55
== END 2025-10-07 10:55 | disposition home or self-care (01) ==
LOC: HO.HUSH 10:10
PROVIDERS: PCP Internal Medicine; Visit Provider Urology
DX: N40.1 Benign prostatic hyperplasia with lower urinary tract symptoms (principal); N35.919 Unspecified urethral stricture, male, unspecified site; N39.0 Urinary tract infection, site not specified
CPT/HCPCS: 99213; G2211

== ENCOUNTER → 2025-10-07 10:09 | Outpatient (BNVA) | payer MEDICARE, OTHER, SELFPAY | PROVIDERS: PCP Internal Medicine; Visit Provider Urology | DX: N40.1 Benign prostatic hyperplasia with lower urinary tract symptoms (principal); N35.919 Unspecified urethral stricture, male, unspecified site | CPT/HCPCS: 51798; 99212 ==